=== PATIENT | male | born 1955 | race Caucasian/White ===

== ENCOUNTER 2024-07-19 06:46 | Inpatient (IN) | payer MEDICARE, MEDICAID, SELFPAY ==
[2024-07-19] VITALS (10 sets, daily range): BP systolic 150–188; BP diastolic 57–99; PULSE 69–86; RESP 12–19; TEMP 36.1–36.9; O2SAT 94–98; BMI 33.5
--- NOTE | 2024-07-19 07:00 | EKG_ITS ---
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
--- NOTE | 2024-07-19 07:00 | XR_ITS ---
Examination: AP chest single view TECHNIQUE: AP portable upright chest single view Exam date and time: July 19, 2024 0806 hours Comparison September 29, 2022 INDICATIONS: Chest pain today. FINDINGS: Mild CHF. Mild to moderate enlargement left ventricle Cardiac leads satisfactory position. Prominent vascular congestion with perihilar edema Severe osteopenia IMPRESSION: Mild CHF
--- NOTE | 2024-07-19 07:00 | PD.EDCHEST ---
ED Chest Pain RME/HPI General Chief Complaint: Chest Pain Stated Complaint: CHEST PAIN Time Seen by Provider: 07/19/24 07:00 Arrival date/time: 07/19/24 06:46 RME / HPI RME / HPI narrative: 69 year old male with history of CAD s/p PCI(2012) and CABG(2011), s/p AICD, hypertension, ESRD on HD M/W/F, history of DVT presents to the ED BIBA from home for evaluation fo chest pain beginning at 04:00AM that woke him from sleep. Pain described as sharp pressure in sensation that is located most to the center of chest, rating as moderate. Reportedly took 1 SL Nitro without much improvement. However, was given 1 SL Nitro and 162mg of Aspirin by EMS that provided improvement. Denies associated sweats, nausea, vomiting, cough, shortness of breath. Denies fevers, chills, or abdominal pain. Patient mentioned he has experienced similar chest pain before and last occurred several years ago. 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 Related Data Home Medications ?Medication ?Instructions ?Recorded ?Confirmed allopurinol 300 mg tablet 300 mg PO QDAY 08/03/17 09/29/22 citalopram 20 mg tablet 20 mg PO HS 08/03/17 09/29/22 nitroglycerin 0.4 mg sublingual 0.4 mg buccal PRN PRN Chest Pain 11/25/17 09/29/22 tablet (Nitrostat) furosemide 20 mg tablet 40 mg PO BID 12/24/18 09/29/22 vitamin B complex-vitamin C-folic 1 tab PO DAILY 12/24/18 09/29/22 acid 0.8 mg tablet (Skylar-Edgardo) atorvastatin 80 mg tablet 80 mg PO QPM 08/17/19 09/29/22 hydrocodone 7.5 mg-acetaminophen 1 tab PO BID PRN Pain 08/17/19 09/29/22 325 mg tablet calcium acetate(phosphat bind) 667 667 mg PO TID 09/29/22 09/29/22 mg capsule carvedilol 3.125 mg tablet 3.125 mg PO BID 09/29/22 09/29/22 lisinopril 5 mg tablet 5 mg PO QDAY 09/29/22 09/29/22 Previous Rx's ?Medication ?Instructions ?Recorded clopidogrel 75 mg tablet 75 mg PO QDAY #0 tabs 12/02/17 ondansetron 8 mg disintegrating 8 mg PO Q12H PRN nausea and 10/02/22 tablet vomiting #30 tabs Allergies Allergy/AdvReac Type Severity Reaction Status Date / Time codeine Allergy Severe Rash Verified 09/30/22 19:16 loratadine Allergy Severe SEVERE Verified 09/30/22 19:16 VOMITING naproxen sodium Allergy Severe RASH AND Verified 09/30/22 19:16 SWELLING trazodone Allergy Severe ANAPHALACTIC Verified 09/30/22 19:16 REACTION Review of Systems Review of Systems Narrative Review of Systems: Constitutional: DENIES; Fevers Eyes: DENIES; Loss of vision Head/Ear/Nose: DENIES; Loss of hearing Throat: DENIES; Dysphagia Cardiovascular: SEE HPI +chest pain. DENIES; dyspnea or syncope Respiratory: DENIES; Shortness of breath Gastrointestinal: DENIES; Rectal bleeding or melena. Genitourinary: DENIES; Dysuria (painful or difficult urination) Musculoskeletal: DENIES; Arthralgia (pain in a joint),; Skin: DENIES; Rash Neurological: DENIES; Loss of function or movement Psychiatric: DENIES; recent major life stressor, emotional problem, illicit drug use or abuse Endocrinology: DENIES; Weight change Hematologic/Lymphatic: DENIES; Abnormal bruising Allergic/Immunologic: DENIES; Urticaria (hives) Past Medical History Past Medical History CARDIAC: Positive Cardiac Disorders, Myocardial Infarction, Angina, Coronary Artery Disease, Atherosclerotic Heart Disease, Hypercholesterolemia, Congestive Heart Failure, Edema, Deep Vein Thrombosis, Hypertension and Hypotension RESPIRATORY: Positive Bronchitis, Pneumonia and Pulmonary Embolism GASTROINTESTINAL: Positive Gastrointestinal Disorders and Obesity GENITOURINARY: Positive Genitourinary Disorders, Renal Disease, Kidney Stones and Dialysis MUSCULOSKELETAL: Positive Musculoskeletal Disorders, Arthritis, Gout and Fractures ENDOCRINE: Positive Endocrine Disorders and Diabetes Mellitus Type 2 HEMATOLOGIC: Positive Blood Disorders, Anemia and Clotting Problems PSYCHO/SOCIAL: Positive Recreational Drug Use, Depression and Behavior Problems OTHER HISTORY: Positive Hospitalization and Chicken Pox Family History FAMILY HISTORY: Positive Family Cancer Surgical History SURGICAL: Positive Cardiac Surgery, Open Heart Surgery, Coronary Artery Bypass Graft, Coronary Stent, Cardiac Catheterization, Angiogram, Auto Implanted Cardiovert Defib and Tonsillectomy Social History SMOKING STATUS: Never smoker SECOND HAND EXPOSURE: No SUBSTANCE USE: marijuana OCCUPATION: Denies any alcohol abuse. States that he is an ex-smoker. ED Exam Narrative Physical exam: Physical Exam: General: The vital signs were reviewed. The patient is non-toxic, in no apparent distress and appears healthy with a patent airway, no respiratory distress and has no apparent circulatory problems. Head & Scalp: Normocephalic, atraumatic. Face: Appears normal and is without lesions, deformity. Ears: Left external pinna appears normal. Right external pinna appears normal. Eyes: The sclera is anicteric. No obvious photophobia. The Left and Right Orbit/Lid/Conjunctiva appears normal without swelling, discoloration or injection. Nose: The nose is without deformity, discharge or tenderness; Throat: Appears normal. The mucous membranes are pink and moist without exudates, redness or mass seen. The tongue appears normal. Neck: The neck is supple and no apparent mass or adenopathy. Chest: The chest wall is normal in size and symmetry and has no chest wall tenderness or crepitus. The patient displays normal ventilator effort without retractions, accessory muscle use and has adequate air movement bilaterally with no wheezes and no rales. Cardiovascular: Regular rate and rhythm; No murmurs, rubs, or gallops; Gastrointestinal: The abdomen appears normal. No obvious hernias or mass. The abdomen is soft and benign, non-distended, with no pain, no guarding and no rebound tenderness. Bowel sounds are present and normal sounding. No CVA tenderness. Genitourinary: Back/Spine: Extremities/Musculoskeletal/lymphatic: Left arm has a fistula in place for dialysis access The bilateral upper and lower extremities are warm. There is no evidence of arterial insufficiency. There is no evidence of venous insufficiency/edema. The patient spontaneously moves bilateral upper and lower extremities with no pain and no limitation of movement. There is no apparent, injury or trauma. Skin: The skin is warm, dry and intact. No rashes. No petechia. No purpura. No abnormal bruising. The color is appropriate with no cyanosis. Mental status/Psychiatric: Mental status is appropriate for age. The patient has no apparent delusions, visual hallucinations, no apparent audible hallucinations. The patient has no apparent suicidal thoughts/ideation and no apparent homicidal thoughts/ideation. Neurological: The patient is awake, alert, interactive, cordial, cooperative and is oriented to name and situation. The patient follows commands and answers historical question with no impairment. There is no visual disturbance apparent. The pupils are equal and reactive bilaterally with normal eye movements and no diplopia The bilateral upper and lower extremities have normal strength, normal range of motion and normal functioning. The gait, station and balance were not tested due to sitting in the ambulance bay on the [facility] on initial evaluation Course Course Course Narrative: chest xray ordered to help determine etiology of chest pain. Quality Measures none Orders Category Date Time Status EKG (ED ONLY) *Do not use* NOW Care 07/19/24 07:00 Completed EKG (ED Only) Stat Exams 07/19/24 07:00 Draft XR chest 1V portable Stat Exams 07/19/24 07:00 Completed B-Type Natriuretic Peptide Stat Lab 07/19/24 07:50 Completed CBC Stat Lab 07/19/24 07:50 Completed Comprehensive Metabolic Panel Stat Lab 07/19/24 07:50 Completed Drug Screen,Urine Stat Lab 07/19/24 09:11 Completed Lipase Stat Lab 07/19/24 07:50 Completed Magnesium Stat Lab 07/19/24 07:50 Completed Troponin I Stat Lab 07/19/24 07:50 Completed Troponin I Stat Lab 07/19/24 12:00 Completed Urinalysis Stat Lab 07/19/24 09:11 Completed Urinalysis, C/S if Indicated Stat Lab 07/19/24 09:11 Completed Vital Signs Vital signs: Vital Signs Temperature 98.0 F 07/19/24 07:35 Pulse Rate 85 07/19/24 07:35 Respiratory Rate 16 07/19/24 07:35 Blood Pressure 176/80 H 07/19/24 07:35 Pulse Oximetry (%) 96 07/19/24 07:35 Oxygen Delivery Method Room Air 07/19/24 07:35 Chest Pain MDM Narrative MDM Narrative:: Patient is a 69-year-old diabetic who is dialysis dependent and end-stage renal failure who began having chest pain at 0400 hrs. this morning described as a sharp discomfort. Patient got initial nitroglycerin and then a second 1 which now his chest pain has resolved. He had a previous stent in 2012 and bypass surgery in 2011. States he has been chest pain-free since that time. Dr Kaiser is his oral surgeon. Medical workup for chest pain was initiated at 0655 hrs. White count came back at 5.4 hemoglobin 11.2 platelet count is 104,000 glucose 206. AST ALT within normal is total bilirubin was normal. Initial troponin was 0.115 and a 3-hour interval was elevated at 1.532 consistent with concerns for acute cardiac ischemia. BNP is elevated 819 urine drug screen came back positive for marijuana and opioids. Chest x-ray read by myself reveals mild vascular redistribution consistent with congestive heart failure is no effusion there is no consolidation. There are sternotomy wires in place and large or enlarged cardiac silhouette. Because patient is end-stage renal failure diabetic and now has elevated troponins with a previous history coronary disease will need to be admitted. Spoke with the hospitalist and they will be admitting and asked that I placed a call to Dr. Dunn who has not called back at 1409 hrs. Patient data External records reviewed:: [facility] previous records (09/29/2022 through 10/02/2022) and EMS form Clinical information provided by:: patient and EMS Social determinants that could affect healthcare access:: none Patient has the following chronic illnesses:: CAD s/p PCI(2012) and CABG(2011), s/p AICD, hypertension, ESRD on HD M/W/F, history of DVT How is presenting disease/condition affected by chronic disease/condition?: exacerbated by Evaluation data The following diagnostics were reviewed and interpreted by me:: lab results, radiology exam(s) and EKG tracing(s) (Sinus rhythm, rate 82, no STEMI ) Lab and/or radiology exams considered but not ordered:: None Interpretation Summary: See MDM above Medications / Prescriptions Medications or Prescriptions considered but not ordered:: None Medication administrations:: See MDM patient got aspirin Consultations Consultation(s) initiated? (list below): Yes Diagnosis Chest Pain Differential Diagnosis: pneumothorax, stable angina, atypical chest pain, st elevation myocardial infarction, costochondritis, chest pain and biliary colic Most likely diagnosis given after review of the tests above:: ACS Admission Indicated Admission indicated?: indicated Admission Request Was there a request for admission?: Yes Admission Attestation Admission request attestation: Discussed case with [] from Hospitalist service regarding admission. Discussed patients ED course, exam findings, labs, and radiology results. The Hospitalist [agrees,declines] to accept the patient for admission. Disposition Plan Disposition Plan: Admit Critical Care Time Critical Care Time Critical Care Time: Yes Total Critical Care Time (min.): 45 Attestation: The high probability of sudden, clinically significant deterioration in the patient's condition required the highest level of my preparedness to intervene urgently. The services I provided to this patient were to treat and/or prevent clinically significant deterioration. Services included the following: chart data review, reviewing nursing notes and/or old charts, documentation time, surgery consultant collaboration regarding findings and treatment options, medication orders and management, direct patient care, vital sign assessments and ordering, interpreting and reviewing diagnostic studies and lab tests. Aggregate critical care time includes only time during which I was engaged in work directly related to the patient's care, as described above, whether at bedside or elsewhere in the Emergency Department. It did not include time spent performing other reported procedures or the services of residents, students, nurses or physician assistants. Discharge Plan Plan Patient Disposition: Admit Acute Care w/in Hospital Disposition Comment: Hospitalist admit Dr. Dunn to consult Prescriptions/Referrals Prescriptions/Med Rec: No Action clopidogrel 75 mg Tablet 75 mg PO QDAY Qty: 0 0RF Rx Instructions: Hold until Thursday the . Then continue as prescribed. hydrocodone-acetaminophen 7.5-325 mg Tablet 1 tab PO BID PRN (Reason: Pain) atorvastatin 80 mg Tablet 80 mg PO QPM citalopram 20 mg Tablet 20 mg PO HS allopurinol 300 mg Tablet 300 mg PO QDAY nitroglycerin [Nitrostat] 0.4 mg Tablet, Sublingual 0.4 mg buccal PRN PRN (Reason: Chest Pain) Skylar-Edgardo 0.8 mg Tablet 1 tab PO DAILY furosemide 20 mg Tablet 40 mg PO BID carvedilol 3.125 mg Tablet 3.125 mg PO BID Rx Instructions: must administer with a meal/food lisinopril 5 mg Tablet 5 mg PO QDAY calcium acetate(phosphat bind) 667 mg Capsule 667 mg PO TID ondansetron 8 mg tablet,disintegrating 8 mg PO Q12H PRN (Reason: nausea and vomiting) Qty: 30 0RF Referrals: No Primary/Family,Physician [Primary Care Provider] - In 1 week Problem List Clinical Impression: Acute coronary syndrome, Diabetes, End stage renal failure on dialysis Patient/Caregiver Discharge Instructions Print Language: Sinhala Stand Alone Forms: Ly[facility] Award Info., Patient Portal Info Letter
[2024-07-19 08:17] LABS: Basophils % (Auto) 1 % (0-2.5); Eosinophils # (Auto) 0.1 Thou/mm3 (0.0-0.5); Eosinophils % (Auto) 2 % (0-10); Hematocrit 33.9 % (41.0-53.0); Hemoglobin 11.2 g/dL (13.5-16.0); Immature Granulocytes % (Auto) 0 % (0-0); Immature Granulocytes Auto 0.01 Thou/mm3 (0.00-0.00); Lymphocytes # (Auto) 0.9 Thou/mm3 (1.0-4.8); Lymphocytes % (Auto) 16 % (10-50); Mean Corpuscular Hemoglobin 31.9 pg (25.0-35.0); Mean Corpuscular Volume 97 fL (80-100); Monocytes # (Auto) 0.5 Thou/mm3 (0.0-0.8); Monocytes % (Auto) 9 % (0-12); Neutrophils # (Auto) 3.9 Thou/mm3 (1.8-7.7); Neutrophils % (Auto) 73 % (37-80); Nucleated Red Blood Cell % 0 /100 WBC (0); Platelet Count 104 Thou/mm3 (140-440); RDW Standard Deviation 53.8 fL (35.1-43.9); Red Blood Count 3.51 Miln/mm3 (4.50-5.90); White Blood Count 5.4 Thou/mm3 (3.8-10.6)
[2024-07-19 08:50] LABS: Alanine Aminotransferase 15 U/L (10-49); Albumin, Serum 4.2 gm/dL (3.4-4.8); Albumin/Globulin Ratio 1.4 (1.2-2.2); Alkaline Phosphatase 91 U/L (46-116); Anion Gap 8 (7-16); Aspartate Amino Transferase 25 U/L (0-34); B-Type Natriuretic Peptide 819 pg/mL (0-100); BUN/Creatinine Ratio 5 Ratio (12-20); Bilirubin,Total 0.6 mg/dL (0.3-1.2); Blood Urea Nitrogen 39 mg/dL (9-23); Calcium 10.1 mg/dL (8.3-10.6); Calcium (Corrected) 10.1 mg/dL (8.5-10.1); Carbon Dioxide 29.5 mMol/L (20.0-31.0); Chloride 103 mMol/L (98-107); Creatinine (Component) 7.2 mg/dL (0.6-1.3); Estimated Creatinine Clearance 12.3 mL/min (>60); Globulin 2.9 gm/dL (2.3-3.5); Glucose 206 mg/dL (74-106); Lipase 40 U/L (12-53); Magnesium 1.9 mg/dL (1.6-2.6); Osmolality,Calculated 294 (275-295); Potassium 4.9 mMol/L (3.4-5.1); Sodium 140 mMol/L (136-145); Total Protein 7.1 gm/dL (5.7-8.2); eGFR 8 See Note
[2024-07-19 08:53] LABS: Troponin I 0.115 ng/mL (0.0-0.045)
[2024-07-19 12:10] LABS: Collection Type, Urine Clean Catch; Squamous Epithelial Cell,Urine 0 /hpf (0-5)
[2024-07-19 12:17] LABS: Bilirubin,Urine Negative (Negative); Blood,Urine Negative (Negative); Clarity,Urine Clear (Clear/Hazy); Color,Urine Lt-Yellow (Lt Yel-Yel); Culture Indicated,Urine Not Indicated; Glucose, Urine 3+ (Negative); Ketones,Urine Negative (Negative); Leukocyte Esterase,Urine Negative (Negative); Nitrite,Urine Negative (Negative); Protein,Urine 2+ (Neg - Trace); RBC,Urine 1 /hpf (0-3); Urobilinogen,Urine Negative mg/dL (0.0-1.0); WBC,Urine < 1 /hpf (0-5)
[2024-07-19 12:30] LABS: Amphetamine/Methamp Scrn,U Negative (Negative); Barbiturate Screen,Urine Negative (Negative); Benzodiazepines Screen,Urine Negative (Negative); Benzoylecgonine Screen, Ur Negative (Negative); Fentanyl Screen,Urine Negative (Negative); Opiate Screen,Urine Positive (Negative); THC Screen,Urine Positive (Negative)
[2024-07-19 12:31] LABS: Troponin I 1.532 ng/mL (0.0-0.045)
--- NOTE | 2024-07-19 14:45 | PD.RESHP ---
Documentation for date of: 07/19/24 [facility] History of Present Illness Chief complaint: Chest pain History of present illness: A 69-year-old male with significant past medical history of hypertension, diabetes mellitus, ESRD on HD [M/W/F] since 2019, CAD s/p CABG [2011], s/p PCI [2013], AICD, history of DVT with pulmonary embolism on Eliquis, depression presented to the hospital with chief complaints of chest pain since 6 hours. Patient was apparently normal till this morning, patient had severe chest pain at 4 AM that made him awake from the sleep. Chest pain was located mainly on the left side radiating to the back associated with cold clammy sweats, denies associated shortness of breath, palpitations, radiation to the arm or jaw. Patient took a dose of sublingual nitrate at home despite of which the pain did not subside, took his routine daily medications and later called EMS. Patient received 1 more dose of sublingual nitrate and aspirin 162 following which the pain subsided. By the time the hospitalist team saw the patient, he is free of chest pain. Patient reported that he did not have any similar complaints in the past and no history of chest pain with routine daily activities. Patient is able to take care of himself around the house but cannot walk for long distances due to pain in his legs. Patient is following up with turf keeper Dr. Matthews in [place], last appointment was 3 months ago and next appointment pending in August As the patient have typical chest pain with uptrending troponin levels, patient was admitted and cardiology was consulted for further management ED course: -Vitals at the time of admission are blood pressure 176/80 mmHg, pulse rate 85 bpm, respiratory rate 16/min, temperature 98 ?F, SpO2 96% with room air -Labs showed WBC 5.4, Hb 11.2, platelets 104, sodium 140, potassium 4.9, BUN 39, creatinine 7.2, glucose 206, troponin 1.5, BNP 819 -Urine analysis showed 2+ proteinuria, 3+ glucosuria. Urine toxicology tested positive for opiates and marijuana -Chest x-ray showed enlarged cardiac contour with mild bilateral vascular congestion -EKG normal sinus rhythm with no ST-T wave changes Past medical history: Diabetes mellitus, hypertension, ESRD, CAD, DVT with pulmonary embolism, depression Past surgical history: CABG, PCI, AICD, left AV fistula for hemodialysis, Tonsillectomy Social history: Smoked cigarettes for 20 pack years and quit in 2012, quit alcohol in 2012, continues to smoke marijuana approximately 4 times in a week, denies any other illicit drug abuse, lives alone Allergies: Codeine, trazodone, Aleve Medication history: Eliquis, Plavix, carvedilol, allopurinol, hydrocodone, lisinopril, metoclopramide, Lasix, glipizide, pantoprazole, gabapentin, atorvastatin Review of Systems Review of Systems Narrative Review of Systems: Constitutional: No Weight Change, No Fever, No Chills, No Night Sweats, No Fatigue, No Malaise ENT/Mouth: No Hearing Changes, No Ear Pain, No Nasal Congestion, No Sinus Pain, No Hoarseness, No sore throat, No Rhinorrhea, No Swallowing Difficulty Eyes: No Eye Pain, No Swelling, No Redness, No Foreign Body, No Discharge, No Vision Changes Cardiovascular: No Chest Pain, No SOB, No PND, No Dyspnea on Exertion, No Orthopnea, No Edema, No Palpitations Respiratory: No Cough, No Sputum, No Wheezing, No Dyspnea Gastrointestinal: No Nausea, No Vomiting, No Diarrhea, No Constipation, No Pain, No Heartburn, No Anorexia, No Dysphagia, No Hematochezia, No Melena, No Flatulence, No Jaundice Genitourinary: No Dysuria, No Urinary Frequency, No Hematuria, No Urinary Incontinence, No Urgency, No Flank Pain, No Urinary Flow Changes, No Hesitancy Musculoskeletal: No Arthralgias, No Myalgias, No Joint Swelling, No Joint Stiffness, No Back Pain, No Neck Pain, No Injury History Skin: No Skin Lesions, No Pruritis Neuro: No Weakness, No Numbness, No Paresthesias, No Loss of Consciousness, No Syncope, No Dizziness, No Headache, No Coordination Changes, No Recent Falls Past Medical History Past Medical History CARDIAC: Positive Cardiac Disorders, Myocardial Infarction, Angina, Coronary Artery Disease, Atherosclerotic Heart Disease, Hypercholesterolemia, Congestive Heart Failure, Edema, Deep Vein Thrombosis, Hypertension and Hypotension RESPIRATORY: Positive Bronchitis, Pneumonia and Pulmonary Embolism GASTROINTESTINAL: Positive Gastrointestinal Disorders and Obesity GENITOURINARY: Positive Genitourinary Disorders, Renal Disease, Kidney Stones and Dialysis MUSCULOSKELETAL: Positive Musculoskeletal Disorders, Arthritis, Gout and Fractures ENDOCRINE: Positive Endocrine Disorders and Diabetes Mellitus Type 2 HEMATOLOGIC: Positive Blood Disorders, Anemia and Clotting Problems PSYCHO/SOCIAL: Positive Recreational Drug Use, Depression and Behavior Problems OTHER HISTORY: Positive Hospitalization and Chicken Pox Family History FAMILY HISTORY: Positive Family Cancer Surgical History SURGICAL: Positive Cardiac Surgery, Open Heart Surgery, Coronary Artery Bypass Graft, Coronary Stent, Cardiac Catheterization, Angiogram, Auto Implanted Cardiovert Defib and Tonsillectomy Social History SMOKING STATUS: Never smoker SECOND HAND EXPOSURE: No SUBSTANCE USE: marijuana OCCUPATION: Denies any alcohol abuse. States that he is an ex-smoker. Exam Vital Signs Temp Pulse Resp BP Pulse Ox O2 Del Method 98.2 F 78 12 155/78 H 95 Room Air 07/19/24 10:05 07/19/24 10:05 07/19/24 10:05 07/19/24 10:05 07/19/24 10:07/19/24 10:05 Narrative Exam General: Awake. Resting comfortably HEENT: Normocephalic, atraumatic, mucous membranes moist. Heart: Regular rate and rhythm, systolic murmur heard at aortic and pulmonary area Lungs: Clear to auscultation with no wheezing or crackles. Abdomen: Soft, nondistended, nontender, positive bowel sounds. ?No guarding or rebound tenderness. Neurologic: Alert and oriented x3, no gross neurological deficit, and patient able to move all 4 extremities. Extremities: AV fistula noted on left arm, continuous murmur noted, no signs of infection Skin: No rash or ecchymoses. Results: Labs 07/20/24 06:55 07/20/24 08:50 Labs: Short CBC 07/19/24 Range/Units 07:50 WBC 5.4 (3.8-10.6) Thou/mm3 Hgb 11.2 L (13.5-16.0) g/dL Hct 33.9 L (41.0-53.0) % Plt Count 104 L (140-440) Thou/mm3 BMP 07/19/24 07:50 Sodium 140 Potassium 4.9 Chloride 103 Carbon Dioxide 29.5 BUN 39 H Creatinine 7.2 H* Glucose 206 H Calcium 10.1 Cardiac Enzymes 07/19/24 07/19/24 Range/Units 07:50 12:00 Troponin I 0.115 H* 1.532 H* D (0.0-0.045) ng/mL Liver Function 07/19/24 Range/Units 07:50 Total Bilirubin 0.6 (0.3-1.2) mg/dL AST 25 (0-34) U/L ALT 15 (10-49) U/L Alkaline Phosphatase 91 (46-116) U/L Albumin 4.2 (3.4-4.8) gm/dL Urine 07/19/24 Range/Units 09:11 Urine Color Lt-Yellow (Lt Yel-Yel) Urine Clarity Clear (Clear/Hazy) Urine pH 8.0 H (5.0-7.0) Ur Specific [place] 1.010 (1.001-1.035) Urine Protein 2+ A (Neg - Trace) Urine Glucose (UA) 3+ A (Negative) Quality Measures Quality Measures none Advance care planning discussed with:: patient Medications Home Medications and Allergies Home Medications ?Medication ?Instructions ?Recorded ?Confirmed ?Type allopurinol 300 mg tablet 300 mg PO QDAY 08/03/17 07/20/24 History citalopram 20 mg tablet 20 mg PO HS 08/03/17 07/20/24 History nitroglycerin 0.4 mg sublingual 0.4 mg buccal PRN PRN Chest Pain 11/25/17 07/20/24 History tablet (Nitrostat) furosemide 20 mg tablet 40 mg PO BID 12/24/18 07/20/24 History vitamin B complex-vitamin C-folic 1 tab PO DAILY 12/24/18 07/20/24 History acid 0.8 mg tablet (Skylar-Edgardo) atorvastatin 80 mg tablet 80 mg PO QPM 08/17/19 07/20/24 History hydrocodone 7.5 mg-acetaminophen 1 tab PO BID PRN Pain 08/17/19 07/20/24 History 325 mg tablet calcium acetate(phosphat bind) 667 667 mg PO TID 09/29/22 09/29/22 History mg capsule carvedilol 3.125 mg tablet 3.125 mg PO BID 09/29/22 07/20/24 History lisinopril 5 mg tablet 5 mg PO QDAY 09/29/22 07/20/24 History albuterol sulfate 90 mcg/actuation 2 puff inhalation .[id number] PRN 07/20/24 07/20/24 History aerosol inhaler shortness of breath or wheezing apixaban 2.5 mg tablet (Eliquis) 2.5 mg PO BID 07/20/24 07/20/24 History gabapentin 300 mg capsule 300 mg PO HS 07/20/24 07/20/24 History glipizide 5 mg tablet 2.5 mg PO DAILY 07/20/24 07/20/24 History metoclopramide HCl 5 mg tablet 5 mg PO BID PRN nausea and vomiting 07/20/24 07/20/24 History pantoprazole 40 mg tablet,delayed 40 mg PO BID 07/20/24 07/20/24 History release Allergies Allergy/AdvReac Type Severity Reaction Status Date / Time codeine Allergy Severe Rash Verified 09/30/22 19:16 loratadine Allergy Severe SEVERE Verified 09/30/22 19:16 VOMITING naproxen sodium Allergy Severe RASH AND Verified 09/30/22 19:16 SWELLING trazodone Allergy Severe ANAPHALACTIC Verified 09/30/22 19:16 REACTION Visit Medications Acetaminophen (Acetaminophen 325 Mg Tablet) 650 mg PO Q6H PRN PRN Reason: Fever >101.5 Stop: 08/18/24 14:35 Ondansetron HCl (Ondansetron Inj 2 Mg/Ml Inj 2 Ml) 4 mg IV Q6H PRN; Protocol PRN Reason: NAUSEA OR VOMITING Stop: 08/18/24 14:35 Pantoprazole Sodium (Pantoprazole 40 Mg Tablet) 40 mg PO QDAY KATHERINE Stop: 08/19/24 08:59 Assessment & Plan Plan A 69-year-old male with significant past medical history of hypertension, diabetes mellitus, ESRD on HD [M/W/F] since 2019, CAD s/p CABG [2011], s/p PCI [2012], AICD, history of DVT with pulmonary embolism on Eliquis, depression presented to the hospital with chief complaints of chest pain since 6 hours. # Typical chest pain # NSTEMI, likely type I # History of CAD s/p CABG, PCI, AICD # History of HFrEF [20 to 25%, 2019] -Patient presented to the hospital with complaints of chest pain on the left side radiating to the back associated with cold clammy sweats -Chest pain resolved with 2 doses of sublingual nitrate and patient is pain-free since then -At baseline, patient is able to do his routine daily activities without any chest pain -Vitals are stable at the time of admission except for mildly elevated blood pressures -On physical examination, noted systolic murmur at aortic and pulmonary area -Troponin at the time of admission is 0.115 > 1.53 > 2.7 -EKG done at the time of admission showed sinus rhythm with no ST and T wave changes -Chest x-ray showed enlarged cardiac contour -Echo done in 2019 showed dilated cardiomyopathy with moderate LVH. ejection fraction is 20-25%. Mild mitral, pulmonic, and tricuspid regurgitation noted. Plan -Total dose of aspirin 324 Mg and 80 Mg of atorvastatin is given -Cardiology is consulted, recommended heparin drip and anticipated procedure 2 days later as patient already took Eliquis today -Started on his home medications including carvedilol, Plavix, atorvastatin and Lasix -Will continue to trend troponin levels # History of diabetes mellitus -Glucose at the time of presentation is 206 -Patient is using glimepiride 2.5 Mg p.o. daily Plan -Started on insulin sliding scale, ACHS -Hypoglycemia protocol in place -A1c is ordered # History of hypertension -Blood pressure at the time of admission is 176/80 mmHg -Patient is using carvedilol 3.125 Mg p.o. twice daily, lisinopril 5 Mg p.o. daily, Lasix 40 Mg p.o. twice daily at home Plan -Low-sodium diet -Started on his home medications -Will continue to monitor blood pressures and titrate medication accordingly -Labetalol as needed if blood pressure greater than 160 # ESRD on HD [M/W/F] -Patient is on hemodialysis since 2019 -Following with Dr. Kaiser, last dialysis session is on 07/18/2024 -AV fistula site looks clean on left upper arm Plan -Nephrology is consulted -Patient is pending dialysis tomorrow -Will avoid nephrotoxic medications and renally dose medications # History of DVT with pulmonary embolism, on Eliquis -Patient is scheduled for cardiac cath 2 days later for which Eliquis is held -Started on heparin drip for chest pain which will take care of anticoagulation -Will resume Eliquis on discharge Hospital Maintenance: Dispo: Telemetry DVT ppx: Heparin GI ppx: Pantoprazole Diet: Low-salt, renal diet IV lines: Peripheral Code status: Full code Patient plan of care was discussed with the attending physician, Dr. Rajput and senior resident Dr. Eleno Acosta, PGY1 Attending Provider Attestation/Addendum I reviewed labs, imaging, EKG, home medications and prior available records. Face to face evaluation was performed by me. I have personally examined the patient and discussed assessment and plan with the IM team. I reviewed the resident note and agree with the plan with exceptions as below. Chest pain at rest History of CAD status post CABG and PCI History of ischemic cardiomyopathy with a EF of 20-25% Non-STEMI ESRD on hemodialysis Continue aspirin and atorvastatin Discussed with cardiology: Given the high risk, recommended starting heparin drip and cardiac catheterization Continue Lasix Consult nephrology for routine hemodialysis
--- NOTE | 2024-07-19 14:53 | PD.RESCONSUL ---
HPI Data of Consult Primary Care Provider: Physician No Primary/Family Consult Narrative History of present illness: Patient is a 69-year-old male with past medical history of ESRD on HD M/W/F (followed by Dr. Kaiser), CAD s/p CABG 2011 and PCI 2012 (followed by Dr. Matthews), HFrEF (33%) s/p AICD, history of DVT/PE on Eliquis, hypertension, type 2 diabetes, chronic low back pain, and depression who presented to the ED on 07/19/2024 with sharp, constant, pressure-like left upper chest pain with radiation straight to the back, starting around 4 am waking him from sleep, lasting 2 hours. This was associated with nausea and diaphoresis. Patient reports never having similar pain in the past. Patient took 1 sublingual nitro at home without relief and called EMS. En route patient received 182 mg aspirin and 1 additional sublingual nitro with relief of the chest pain. Pain has not recurred again while patient has been in the ER. Patient follows up with Environmental Maintenance Worker Dr. Matthews in [place], last visit about 3 months ago and scheduled for follow up echo in August. Patient reports his last ejection fraction is 33%. ED Course: -Initial vitals were BP 176/80, HR 85, RR 16, Temp 98.0, O2 98% on RA -Labs significant for normocytic anemia Hgb 11.2, chronic thrombocytopenia 104k, glucose 206, creatinine 7.2, GFR 8 consistent with ESRD, troponin 0.115 uptrended to 1.532, BNP 819 -UA showed glucose 3+, protein 2+, Utox positive for opiates and marijuana -EKG showed sinus rhythm at a rate of [address] segment changes from prior EKG for reference from 09/2022 -Patient was admitted for ACS rule out and Cardiology on-call was consulted Review of Systems Review of systems otherwise negative except what is mentioned above. cc:: cc: Past Medical History Past Medical History Comments PMH COMMENT: Past Medical History: ESRD on HD M/W/F (followed by Dr. Kaiser), CAD s/p CABG 2011 and PCI 2012 (followed by Dr. Matthews), HFrEF (33%) s/p AICD, history of DVT/PE on Eliquis, hypertension, type 2 diabetes, chronic low back pain, and depression Family History: No known family history of cardiac disease, RI, or stroke. Father from liver cancer, mother of old age . Grandfather of cancer. Surgical History: CABG 2011, PCI with 1 stent 2012, tonsillectomy Social History: Former history of smoking 42-pack years quit in 2011, former heavy alcohol use quit in 2011, current daily marijuana use for sleep aid and back pain. Patient lives alone on his property and is independent with all IADLs. 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 He is able to drive but tries to avoid it as possible. Current Medications: Eliquis 2.5 mg BID, clopidogrel 75 mg qday, furosemide 40 mg BID, carvedilol 3.125 mg BID, lisinopril 5 mg qday, atorvastatin 80 mg qday, glipizide 2.5 mg qday, pantoprazole 40 mg BID, metoclopramide 5 mg BID, allopurinol 300 mg qday, citalopram 20 mg qday, gabapentin 300 mg HS, hydrocodone-acetaminophen 7.5-325 mg BID prn (Source: patient medication bottles at bedside) Allergies: Loratadine - swelling, codeine - rash, naproxen - swelling and rash, trazodone - anaphylaxis Exam Vital Signs Temp Pulse Resp BP Pulse Ox O2 Del Method 98.2 F 78 12 155/78 H 95 Room Air 07/19/24 10:05 07/19/24 10:05 07/19/24 10:05 07/19/24 10:05 07/19/24 10:05 07/19/24 10:05 Narrative Exam Physical Exam General: Awake and in no acute distress. Conversational and non-toxic appearing. HEENT: Normocephalic, atraumatic, mucous membranes moist. Heart: Regular rate and rhythm, grade 2/6 systolic ejection murmur best heard at the right upper sternal border. Lungs: Clear to auscultation with no wheezing or crackles. Abdomen: Soft, nondistended, nontender, positive bowel sounds. ?No guarding or rebound tenderness. Neurologic: Alert and oriented x3, no gross neurological deficit, and patient able to move all 4 extremities. Extremities: No edema. Left arm fistula in place. Skin: No rash or ecchymoses. Results Labs 07/20/24 06:55 07/20/24 08:50 Labs: Short CBC 07/19/24 Range/Units 07:50 WBC 5.4 (3.8-10.6) Thou/mm3 Hgb 11.2 L (13.5-16.0) g/dL Hct 33.9 L (41.0-53.0) % Plt Count 104 L (140-440) Thou/mm3 BMP 07/19/24 07:50 Sodium 140 Potassium 4.9 Chloride 103 Carbon Dioxide 29.5 BUN 39 H Creatinine 7.2 H* Glucose 206 H Calcium 10.1 Cardiac Enzymes 07/19/24 07/19/24 Range/Units 07:50 12:00 Troponin I 0.115 H* 1.532 H* D (0.0-0.045) ng/mL Liver Function 07/19/24 Range/Units 07:50 Total Bilirubin 0.6 (0.3-1.2) mg/dL AST 25 (0-34) U/L ALT 15 (10-49) U/L Alkaline Phosphatase 91 (46-116) U/L Albumin 4.2 (3.4-4.8) gm/dL Urine 07/19/24 Range/Units 09:11 Urine Color Lt-Yellow (Lt Yel-Yel) Urine Clarity Clear (Clear/Hazy) Urine pH 8.0 H (5.0-7.0) Ur Specific [place] 1.010 (1.001-1.035) Urine Protein 2+ A (Neg - Trace) Urine Glucose (UA) 3+ A (Negative) Quality Measures Quality Measures none Advance care planning discussed with:: patient Medications Home Medications and Allergies Home Medications ?Medication ?Instructions ?Recorded ?Confirmed ?Type allopurinol 300 mg tablet 300 mg PO QDAY 08/03/17 07/20/24 History citalopram 20 mg tablet 20 mg PO HS 08/03/17 07/20/24 History nitroglycerin 0.4 mg sublingual 0.4 mg buccal PRN PRN Chest Pain 11/25/17 07/20/24 History tablet (Nitrostat) furosemide 20 mg tablet 40 mg PO BID 12/24/18 07/20/24 History vitamin B complex-vitamin C-folic 1 tab PO DAILY 12/24/18 07/20/24 History acid 0.8 mg tablet (Skylar-Edgardo) atorvastatin 80 mg tablet 80 mg PO QPM 08/17/19 07/20/24 History hydrocodone 7.5 mg-acetaminophen 1 tab PO BID PRN Pain 08/17/19 07/20/24 History 325 mg tablet calcium acetate(phosphat bind) 667 667 mg PO TID 09/29/22 09/29/22 History mg capsule carvedilol 3.125 mg tablet 3.125 mg PO BID 09/29/22 07/20/24 History lisinopril 5 mg tablet 5 mg PO QDAY 09/29/22 07/20/24 History albuterol sulfate 90 mcg/actuation 2 puff inhalation .[id number] PRN 07/20/24 07/20/24 History aerosol inhaler shortness of breath or wheezing apixaban 2.5 mg tablet (Eliquis) 2.5 mg PO BID 07/20/24 07/20/24 History gabapentin 300 mg capsule 300 mg PO HS 07/20/24 07/20/24 History glipizide 5 mg tablet 2.5 mg PO DAILY 07/20/24 07/20/24 History metoclopramide HCl 5 mg tablet 5 mg PO BID PRN nausea and vomiting 07/20/24 07/20/24 History pantoprazole 40 mg tablet,delayed 40 mg PO BID 07/20/24 07/20/24 History release Allergies Allergy/AdvReac Type Severity Reaction Status Date / Time codeine Allergy Severe Rash Verified 09/30/22 19:16 loratadine Allergy Severe SEVERE Verified 09/30/22 19:16 VOMITING naproxen sodium Allergy Severe RASH AND Verified 09/30/22 19:16 SWELLING trazodone Allergy Severe ANAPHALACTIC Verified 09/30/22 19:16 REACTION Visit Medications Acetaminophen (Acetaminophen 325 Mg Tablet) 650 mg PO Q6H PRN PRN Reason: Fever >101.5 Stop: 08/18/24 14:35 Ondansetron HCl (Ondansetron Inj 2 Mg/Ml Inj 2 Ml) 4 mg IV Q6H PRN; Protocol PRN Reason: NAUSEA OR VOMITING Stop: 08/18/24 14:35 Pantoprazole Sodium (Pantoprazole 40 Mg Tablet) 40 mg PO QDAY KATHERINE Stop: 08/19/24 08:59 Assessment & Plan Plan 69-year-old male with past medical history of ESRD on HD M/W/F (followed by Dr. Kaiser), CAD s/p CABG 2011 and PCI 2012 (followed by Dr. Matthews), HFrEF (33%) s/p AICD, history of DVT/PE on Eliquis, hypertension, type 2 diabetes, chronic low back pain, and depression who presented to the ED on 07/19/2024 with sharp, constant, pressure-like left upper chest pain with radiation straight to the back. Patient was found to have elevated troponin which uptrended in ED and was subsequently admitted for ACS management and Cardiology was consulted. #Typical chest pain #NSTEMI, likely type I #History of CAD s/p CABG and PCI #History of HFrEF (33%) s/p AICD Patient presented to the hospital with complaints of sharp, pressure-like left upper chest pain which woke up patient from sleep, radiating to the back associated with diaphoresis and nausea, resolved after 2 doses of sublingual nitrate, and has has no further episodes while in the hospital thus far. Troponin at the time of admission is 0.115 -> 1.532 EKG done at the time of admission showed sinus rhythm with no ST and T wave changes Chest x-ray showed enlarged cardiac contour Last echo on file done in 2019 showed dilated cardiomyopathy with moderate LVH. ejection fraction is 20-25%. Mild mitral, pulmonic, and tricuspid regurgitation noted. Patient reports last EF was 33% according to his most recent echo with his senior internal auditor Dr. Matthews. Patient received loading dose of aspirin totalling 325 mg. -Start heparin drip ACS protocol -Trend troponin -Plan for cardiac cath 07/21 as patient's last dose of Eliquis was this morning -Await echo -Continue aspirin 81 mg qday -Continue Plavix 75 mg qday -Continue atorvastatin 80mg HS -Strict I&O, daily weight, 2g sodium diet #Systolic ejection murmur On examination there is a 2/6 systolic ejection murmur loudest at the right upper sternal border. Likely aortic calcification or stenosis. Patient denies any history of valve disease. -Await echo #History of DVT with pulmonary embolism Patient takes Eliquis 2.5 mg BID, previously was on warfarin but was stopped. Last dose 4 AM. -Hold home Eliquis Rest of conditions to continue management per primary team: #ESRD on HD M/W/F #History of hypertension #History of type 2 diabetes #History of chronic low back pain Patient plan of care was discussed with the attending physician, Dr. Albright. Emeli Elkins, PGY-2 Attending Provider Attestation/Addendum I have personally seen and examined the patient separately on the above date of service and discussed the plan of care with the resident. I reviewed the resident Dr. Raysa Elkins consultation progress note and agree with the resident findings and plan in the consultation note dictated separately to reflect my findings and plan. Chad Albright M.D. Interventional Cardiology
[2024-07-19] MEDS: ASPIRIN EC 81 MG TABEC PO ×2 (16:22)
[2024-07-19] MEDS: ATORVASTATIN CALCIUM 20 MG TABLET 80 MG PO (16:23)
[2024-07-19 16:41] LABS: Partial Thromboplastin Time 27.3 Seconds (22.0-36.0)
[2024-07-19] MEDS: HEPARIN SOD INJ 5000 UNIT/ML VIAL 4000 UNIT IV (17:04)
[2024-07-19] MEDS: Heparin/D5w 25K 250 ML Ivpb 25,000 UNIT/250 ML BAG 10.886 UNIT IV (17:10)
--- NOTE | 2024-07-19 17:32 | PC.NURSE ---
Heparin was Pending for 1 hour before pharmacy verified. Admitting providers aware
[2024-07-19] MEDS: carVEDILOL 3.125 MG TABLET PO (17:35)
--- NOTE | 2024-07-19 17:47 | PD.RESCONSUL ---
HPI Data of Consult Consult date: 07/19/24 Requesting Physician: Scott Rajput MD Admitting Provider: Scott Rajput MD Attending Provider: Scott Rajput MD Primary Care Provider: Physician No Primary/Family Consult Narrative Reason for consult: ESRD History of present illness: Mr. 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 He was reportedly well until this morning when he awoke at 4 AM due to severe chest pain. The pain was primarily located on the left side of his chest, radiating to his back, and was associated with cold, clammy sweats. He denied shortness of breath, palpitations, or radiation to the arm or jaw. Despite taking a dose of sublingual nitrate at home, the pain did not resolve. After taking his usual daily medications, he called EMS. He was administered one more dose of sublingual nitrate and 162 mg of aspirin, after which the pain subsided. By the time the hospitalist team evaluated him, the chest pain had completely resolved. Given the patient's presentation with typical chest pain and an uptrending troponin level, he was admitted for further management. Nephrology team was consulted for continued HD inpatient. ED COURSE: Afebrile, BP 176/80, HR 85, RR 16, satting 96% on room air. WBC 5.4, Hgb 11.2, PLT 104, sodium 140, potassium 4.9, BUN 39, CR 7.2, GLUCOSE 206, troponin 1.5, BNP 89. UA showed protein, 2+, glucosuria of 3+. U-Tox positive for OPIOID and marijuana. CXR showed enlarged cardiac contour with mild bilateral vascular congestion. EKG showed sinus rhythm without acute ST changes. PMHx: DM, HTN, ESRD, CAD, DVT/pulmonary embolism, depression. PSHx: CABG, PCI, AICD, left AV AC fistula, tonsillectomy. MEDS: ELIQUIS, PLAVIX, CARVEDILOL, ALLOPURINOL, HYDROCODONE, LISINOPRIL, METOCLOPRAMIDE, LASIX, PANTOPRAZOLE, GABAPENTIN, ATORVASTATIN. ALLERGIES: CODEINE, TRAZODONE and ALEVE. FHx: Noncontributory. SH: 20-year pack history since 2011, quit alcohol in 2012. Continued marijuana use. Denied illicit drug use. cc:: cc: Scott Rajput MD Review of Systems Review of Systems Narrative Review of Systems: GENERAL: Denies fevers/chills or diaphoresis. HEENT: Denies headache or visual/hearing changes. Denies nasal discharge. NEURO: Denies unusual weakness or difficulty speaking. CARDIO: Reports chest pain, but 6 of her admission, currently asymptomatic. PULM: Denies SOB, coughing, or wheezing. GI: Denies abdominal pain, N/V/C/D/reflux/gas, bright red blood per rectum or melena. Reports having BMs. URO: Denies burning/itching/pain/urinary changes. MSK/EXT/SKIN: Denies joint/skeletal/muscle pain, issues/changes in upper or lower extremities, itchiness, or superficial pain. PSYCH: Cooperative, pleasant mood & affect. The rest of the review of systems is otherwise negative. Exam Vital Signs Temp Pulse Resp BP Pulse Ox O2 Del Method 98.5 F 78 18 150/57 H 94 L Room Air 07/19/24 16:10 07/19/24 17:35 07/19/24 16:10 07/19/24 17:35 07/19/24 16:10 07/19/24 16:10 Narrative Exam GENERAL [] HEENT NCAT.?JAELYN. Oral mucosa is moist. Patent Nares NECK Supple, nontender, no thyromegaly, no meningismus, no JVD, no step offs CHEST RRR, grade 2 soft murmur noted on exam. CTAB, no w/r/r. Symmetrical chest rise. No intercostal subcostal retraction Atraumatic, nontender, no crepitus, symmetrical expansion. ABDOMEN Soft, flat, nontender. No guarding/rebound tenderness/masses. Bowel sounds presents EXTREMITIES No edema/cyanosis.? SKIN Warm and dry, no jaundice/rashes. AV fistula of the left arm noted and intact. NEUROMUSCULAR No lumbar or midline, no CVA, no paraspinal muscle spasm or tenderness. Moves all 4 extremities well, with full ROM and good CSM. CONTEH x4, CN II-XII grossly intact. No focal neurologic deficits. PSYCHIATRY Normal mood and affect, cooperative, no SI or HI or hallucinations. Results Labs 07/19/24 07:50 07/19/24 07:50 Labs: Short CBC 07/19/24 Range/Units 07:50 WBC 5.4 (3.8-10.6) Thou/mm3 Hgb 11.2 L (13.5-16.0) g/dL Hct 33.9 L (41.0-53.0) % Plt Count 104 L (140-440) Thou/mm3 BMP 07/19/24 07:50 Sodium 140 Potassium 4.9 Chloride 103 Carbon Dioxide 29.5 BUN 39 H Creatinine 7.2 H* Glucose 206 H Calcium 10.1 Cardiac Enzymes 07/19/24 07/19/24 07/19/24 Range/Units 07:50 12:00 16:16 Troponin I 0.115 H* 1.532 H* D 2.700 H* D (0.0-0.045) ng/mL Liver Function 07/19/24 Range/Units 07:50 Total Bilirubin 0.6 (0.3-1.2) mg/dL AST 25 (0-34) U/L ALT 15 (10-49) U/L Alkaline Phosphatase 91 (46-116) U/L Albumin 4.2 (3.4-4.8) gm/dL Urine 07/19/24 Range/Units 09:11 Urine Color Lt-Yellow (Lt Yel-Yel) Urine Clarity Clear (Clear/Hazy) Urine pH 8.0 H (5.0-7.0) Ur Specific [place] 1.010 (1.001-1.035) Urine Protein 2+ A (Neg - Trace) Urine Glucose (UA) 3+ A (Negative) Quality Measures Quality Measures none Advance care planning discussed with:: patient Medications Home Medications and Allergies Home Medications ?Medication ?Instructions ?Recorded ?Confirmed ?Type allopurinol 300 mg tablet 300 mg PO QDAY 08/03/17 07/20/24 History citalopram 20 mg tablet 20 mg PO HS 08/03/17 07/20/24 History nitroglycerin 0.4 mg sublingual 0.4 mg buccal PRN PRN Chest Pain 11/25/17 07/20/24 History tablet (Nitrostat) furosemide 20 mg tablet 40 mg PO BID 12/24/18 07/20/24 History vitamin B complex-vitamin C-folic 1 tab PO DAILY 12/24/18 07/20/24 History acid 0.8 mg tablet (Skylar-Edgardo) atorvastatin 80 mg tablet 80 mg PO QPM 08/17/19 07/20/24 History hydrocodone 7.5 mg-acetaminophen 1 tab PO BID PRN Pain 08/17/19 07/20/24 History 325 mg tablet calcium acetate(phosphat bind) 667 667 mg PO TID 09/29/22 09/29/22 History mg capsule carvedilol 3.125 mg tablet 3.125 mg PO BID 09/29/22 07/20/24 History lisinopril 5 mg tablet 5 mg PO QDAY 09/29/22 07/20/24 History albuterol sulfate 90 mcg/actuation 2 puff inhalation .[id number] PRN 07/20/24 07/20/24 History aerosol inhaler shortness of breath or wheezing apixaban 2.5 mg tablet (Eliquis) 2.5 mg PO BID 07/20/24 07/20/24 History gabapentin 300 mg capsule 300 mg PO HS 07/20/24 07/20/24 History glipizide 5 mg tablet 2.5 mg PO DAILY 07/20/24 07/20/24 History metoclopramide HCl 5 mg tablet 5 mg PO BID PRN nausea and vomiting 07/20/24 07/20/24 History pantoprazole 40 mg tablet,delayed 40 mg PO BID 07/20/24 07/20/24 History release Allergies Allergy/AdvReac Type Severity Reaction Status Date / Time codeine Allergy Severe Rash Verified 09/30/22 19:16 loratadine Allergy Severe SEVERE Verified 09/30/22 19:16 VOMITING naproxen sodium Allergy Severe RASH AND Verified 09/30/22 19:16 SWELLING trazodone Allergy Severe ANAPHALACTIC Verified 09/30/22 19:16 REACTION Visit Medications Acetaminophen (Acetaminophen 325 Mg Tablet) 650 mg PO Q6H PRN PRN Reason: Fever >101.5 Stop: 08/18/24 14:35 Hydrocodone Bitart/Acetaminophen (Hydrocodone/Apap 7.5/325 Tablet) 1 tab PO Q8HR PRN PRN Reason: Pain 7-10 Stop: 07/24/24 17:32 Atorvastatin Calcium (Atorvastatin Calcium 20 Mg Tablet) 80 mg PO HS [facility] Stop: 08/19/24 20:59 Carvedilol (Carvedilol 3.125 Mg Tablet) 3.125 mg PO BIDWM [facility] Stop: 08/19/24 07:59 Clopidogrel Bisulfate (Clopidogrel Bisulfate 75 Mg Tablet) 75 mg PO QDAY [facility] Stop: 08/19/24 08:59 Dextrose (Dextrose 50%-Water Inj 50 Ml Syringe) 25 ml IV Q15MIN PRN PRN Reason: BG 50-70 responsive npo pt Stop: 08/18/24 17:23 Dextrose (Dextrose 50%-Water Inj 50 Ml Syringe) 50 ml IV Q15MIN PRN PRN Reason: BG <50 OR BG <70 & pt unresponsive Stop: 08/18/24 17:23 Escitalopram Oxalate (Escitalopram Oxalate 10 Mg Tablet) 20 mg PO QDAY [facility] Stop: 08/19/24 08:59 Furosemide (Furosemide 40 Mg Tablet) 40 mg PO BIDD [facility] Stop: 08/18/24 17:59 Glucagon (Glucagon Inj 1 Mg Vial) 1 mg IM Q15MIN PRN PRN Reason: BG <70, and no IV access Heparin Sodium/Dextrose (Heparin In D5w Ivpb) 25,000 unit in 250 mls @ 10.886 mls/hr IV .[id number] [facility]; Protocol Stop: 08/02/24 15:59 Last Admin: 07/19/24 17:10 Dose: 10 units/kg/hr, 10.886 mls/hr Insulin Human Lispro (Insulin Lispro (Admelog) 1 Unit/0.01 Ml Unit) 0 unit SC ACHS [facility]; Protocol Stop: 08/18/24 20:59 Labetalol HCl (Labetalol Inj 5 Mg/Ml Vial 20 Ml) 10 mg IVP Q8HR PRN PRN Reason: SBP > 160 Stop: 08/18/24 17:44 Pantoprazole Sodium (Pantoprazole 40 Mg Tablet) 40 mg PO QDAY [facility] Stop: 08/19/24 08:59 Discontinued Medications Aspirin (Aspirin Ec 81 Mg Tabec) 81 mg PO X1 ONE Stop: 07/19/24 15:11 Last Admin: 07/19/24 16:22 Dose: 81 mg Aspirin (Aspirin Ec 81 Mg Tabec) 81 mg PO X1 ONE Stop: 07/19/24 15:12 Last Admin: 07/19/24 16:22 Dose: 81 mg Atorvastatin Calcium (Atorvastatin Calcium 20 Mg Tablet) 80 mg PO X1 ONE Stop: 07/19/24 15:13 Last Admin: 07/19/24 16:23 Dose: 80 mg Carvedilol (Carvedilol 3.125 Mg Tablet) 3.125 mg PO X1 ONE Stop: 07/19/24 17:27 Last Admin: 07/19/24 17:35 Dose: 3.125 mg Heparin Sodium (Porcine) (Heparin Sod Inj 5000 Unit/Ml Vial) 4,000 unit IV X1 ONE; Protocol Stop: 07/19/24 15:47 Last Admin: 07/19/24 17:04 Dose: 4,000 unit Ondansetron HCl (Ondansetron Inj 2 Mg/Ml Inj 2 Ml) 4 mg IV Q6H PRN; Protocol PRN Reason: NAUSEA OR VOMITING Stop: 08/18/24 14:35 Assessment & Plan Plan A 69-year-old male with a significant PMH of HTN, DM, ESRD on HD (M/W/F) since 2019, CAD s/p CABG (2011), s/p PCI (2012), AICD, 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 Plan is to continue with inpatient hemodialysis. Per session to be done Thursday 4/ in the AM. ESRD HD MWF On hemodialysis this 2019. Still able to make small amount of urine. Renal function consistent with ESRD with creatinine and BUN around baseline. No electrolyte abnormalities. No signs of fluid overload on exam. ? Inpatient hemodialysis MWF. ? Renally dose meds, avoid overdiuresis and NEPHROTOXINS ? Daily CMP Typical chest pain NSTEMI, likely type I History of CAD s/p CABG, PCI, AICD History of HFrEF [20 to 25%, 2019] History of diabetes mellitus History of hypertension History of DVT with pulmonary embolism, on Eliquis Managed per primary team. Appreciate the opportunity to participate in the care of this patient. Patient case was discussed with attending, Dr. Kaiser. Salty Vallejo DO PGYI Attending Provider Attestation/Addendum Patient seen and examined with resident physician Dr. Pond. Note reviewed, agree with findings and recommendations. Spoke to at bedside. Yossi is one of my dialysis patients presenting with chest pain. Mild elevation in troponins noted. Cardiology was consulted. Next dialysis scheduled for tomorrow. Thank you Scott for allowing me to participate in the care of Mr. Higginbotham
[2024-07-19] MEDS: Furosemide 40 MG TABLET PO (17:55)
[2024-07-19] MEDS: HYDROcodone/APAP 7.5/325 TABLET 1 TAB PO (20:56)
[2024-07-19] MEDS: INSULIN LISPRO (AdmeLOG) 1 UNIT/0.01 ML UNIT SC (20:56)
[2024-07-19 23:48] LABS: Partial Thromboplastin Time 36.5 Seconds (22.0-36.0)
--- NOTE | 2024-07-19 23:59 | PD.ADDCONS ---
Addendum Consultation Addendum Date of report being addended: 07/19/24 Narrative: Consultation report for Mr. Anahy Sy on 07/19/2024 A 69-year-old male with a past medical history of CAD status post CABG x 3 in 2011, unknown grafts, status post PCI of one of the grafts in 2012, severe systolic congestive heart failure with an EF of less than 35% status post single-chamber AICD placement in 2021, possible ischemic cardiomyopathy, previously followed by Dr. Matthews in [place], history of recurrent DVT as well as PE on Eliquis, previously on warfarin, ESRD on HD, type 2 diabetes mellitus, essential hypertension, hyperlipidemia obesity, chronic smoker with more than [id number] smoking history quit in 2011, substance abuse including marijuana abuse, history of thrombocytopenia questionable ITP, chronic anemia, chronic low back pain, depression, family history of cancer presented to the emergency department for further evaluation of chest pain the chest pressure that woke up from sleep this morning around 4 AM. Patient apparently went to sleep normally and woke up this morning around 4 AM as he started to worsening left-sided chest pain he describes his pain as sharp as well as pressure-like pain that was radiating to the back and the he could not go back to sleep the chest pain or pressure was associated with nausea and diaphoresis but no vomiting and no radiation to the jaw or the arm. The episode lasted less than 2 hours until he reached the emergency department. Patient denies any kind of dizziness syncope or fall. Denies any kind of palpitations or orthopnea or PND had any recent leg swelling. Patient states that he does go to his dialysis regularly and takes all his medications as prescribed. He does follow-up with his sock examiner Dr. Matthews in [place] and last visit was around 3 months ago. He was told his ejection fraction was around 33% previously and had an ICD placed a few years ago and based on the chest x-ray it appears to be in 2021. Patient states that he did have three-vessel bypass done at [facility] by Dr. PHELPS and a year later one of the graft closed and apparently had a stent placed to the same. His ejection fraction has been slowly decreasing since then and required an ICD. He has been on dialysis for the last 4 years and initially for 3 months he was on the dialysis catheter and then eventually he was switched to a left arm fistula which she has been using since then. Denies any recent cardiac cath in the last 1 to 2 years but apparently had a cardiac cath a few years ago by Dr. Matthews but does not remember any further details. He also says that he had procedures done to his leg also with Dr. Matthews at his office. Significant smoker and quit in 2011 after the CABG and still continues to use marijuana daily. In the emergency department vitals were stable except that the blood pressure was slightly elevated. Labs showed hemoglobin of 1.2 and platelets of 104 and WBC of 5.4 and potassium 4.9. Initial troponin was 0.115 and repeat was 1.532. LFTs normal. UA showed proteinuria and glucosuria. Chest x-ray without any acute pathology. EKG showed normal sinus rhythm with IVCD, LVH with strain pattern with minimal ST depressions in the lateral leads. Currently consulted for further evaluation of the chest pain/pressure as well as elevated troponins. Assessment and plan: 1. NSTEMI-mostly type I> type II-rule out acute coronary syndrome 2. CAD s/p CABG x 3 in 2011 s/p PCI to one of the wraps in 2012 3. Ischemic cardiomyopathy with severe systolic congestive heart failure with EF less than 35% 4. S/p single-chamber AICD placement in 2021 5. ESRD on HD 6. History of DVT on Eliquis-previously on warfarin 7. Uncontrolled type 2 diabetes mellitus 8. Uncontrolled hypertension 9. Hyperlipidemia 10. obesity, chronic smoker with more than [id number] smoking history quit in 2011, substance abuse including marijuana abuse, history of thrombocytopenia questionable ITP, chronic anemia, chronic low back pain, depression, family history of cancer. Patient presented with typical chest pain and chest pressure symptoms and woke up early in the morning at 4 AM from the sleep was left-sided associated with diaphoresis nausea and relieved by nitroglycerin. Troponin is also elevated with the initial troponin 0.115 and repeat was 1.54 and continues to uptrend EKG showed nonspecific ST-T changes mostly secondary to LVH with strain pattern but no other acute ST-T changes. Patient is chest pain-free at the present point of time. Patient will need left heart cardiac catheterization with bypass graft angiogram for further cardiac evaluation of the NSTEMI. Continue heparin drip aspirin 325 mg once, aspirin 81 mg once daily and high intensity statin Lipitor 80 mg or Crestor 40 mg once daily. Recommend to hold the Eliquis completely. Patient took his last dose of Eliquis this morning and will need at least 72 hours without the Eliquis prior to the cardiac catheterization as patient will need a femoral left heart cardiac catheterization given his history of bypass grafts and cannot do radial cardiac cath for him. Will continue medical treatment with heparin drip for the next 48 hours and plan to do the cardiac cath on morning or afternoon. Continue to monitor the patient closely on telemetry for any further symptoms. Continue to trend the troponins till it peaks and starts downtrending. Check echocardiogram to evaluate the LV function RV function as well as the diastolic function and also to rule out regional wall motion abnormalities. Patient has significant history of CAD status post CABG in 2011 with 3 bypass grafts as s/p PCI to one of the grafts as per the patient in 2012. Follows up with Dr. Matthews. Please obtain the operative report of the CABG from [facility] in 2011 as well as all the records for the patient from Dr. Matthews office regarding his recent testing and also patient says that he did have some blood work done which includes peripheral vascular disease workup including angiogram reports from his office. Please also obtain details of the single-chamber AICD placed with the patient secondary to his cardiomyopathy and severe systolic congestive heart failure. Patient does not appear to be volume overloaded at the present point of time. Patient is end-stage renal disease on hemodialysis and goes to dialysis regularly. Nephrology Dr. Kaiser following. Further fluid management and keeping the patient euvolemic as per the nephrology team. Strict input output Daily weights and 2 g within diet for now. Recommend aggressive control of the blood pressure as well as the diabetes mellitus. Counseled patient to quit marijuana and patient already quit smoking more than 10 years ago. Management of rest of the medical conditions as per primary team and other consultants. Thank you for the consult and allowing me to participate in the care of the patient. Cardiology will continue to follow. Chad Albright M.D. Interventional Cardiology
[2024-07-20] VITALS (25 sets, daily range): BP systolic 131–175; BP diastolic 45–91; PULSE 59–80; RESP 18–22; TEMP 35.9–36.8; O2SAT 94–98; BMI 33.5
[2024-07-20 00:17] LABS: Troponin I 3.014 ng/mL (0.0-0.045)
[2024-07-20] MEDS: HEPARIN SOD INJ 5000 UNIT/ML VIAL 2000 UNIT IV (00:41)
--- NOTE | 2024-07-20 01:08 | EKG_ITS ---
[facility] Test Date: 2024-07-20 Pat Name: KIRTI PEREZ [facility] Director Of Coding: JOSÉ MIGUEL : 1955 Requested By: Melissa Morales Order Number: [id number] Reading MD: Melissa Morales Measurements Intervals Trion Rate: 74 P: 48 ME: 173 QRS: 24 QRSD: 118 T: 142 QT: 437 QTc: 487 Interpretive Statements SINUS RHYTHM POSSIBLE INFERIOR MYOCARDIAL INFARCTION , PROBABLY OLD MODERATE T-WAVE ABNORMALITY, CONSIDER LATERAL ISCHEMIA Compared to ECG 07/19/2024 07:37:07 Myocardial infarct finding now present Intraventricular conduction delay no longer present T-wave abnormality still present Possible ischemia still present /store/S0/[id number]/ecg/[id number].pdf
--- NOTE | 2024-07-20 03:50 | PC.NURSE ---
[facility] 0350.
[2024-07-20] MEDS: Furosemide 40 MG TABLET PO ×2 (06:13→17:11)
[2024-07-20 07:14] LABS: Basophils # (Auto) 0.1 Thou/mm3 (0.0-0.2); Basophils % (Auto) 1 % (0-2.5); Eosinophils # (Auto) 0.2 Thou/mm3 (0.0-0.5); Eosinophils % (Auto) 3 % (0-10); Hematocrit 32.6 % (41.0-53.0); Hemoglobin 10.9 g/dL (13.5-16.0); Immature Granulocytes % (Auto) 0 % (0-0); Immature Granulocytes Auto 0.01 Thou/mm3 (0.00-0.00); Lymphocytes # (Auto) 1.5 Thou/mm3 (1.0-4.8); Lymphocytes % (Auto) 27 % (10-50); Mean Corpuscular HGB Conc 33.4 g/dl (31.0-37.0); Mean Corpuscular Hemoglobin 32.2 pg (25.0-35.0); Mean Corpuscular Volume 96 fL (80-100); Monocytes # (Auto) 0.6 Thou/mm3 (0.0-0.8); Monocytes % (Auto) 10 % (0-12); Neutrophils # (Auto) 3.3 Thou/mm3 (1.8-7.7); Neutrophils % (Auto) 59 % (37-80); Nucleated Red Blood Cell % 0 /100 WBC (0); Platelet Count 89 Thou/mm3 (140-440); RDW Standard Deviation 54.6 fL (35.1-43.9); Red Blood Count 3.38 Miln/mm3 (4.50-5.90); White Blood Count 5.5 Thou/mm3 (3.8-10.6)
[2024-07-20 07:41] LABS: Glucose Estimated Average 114 mg/dL (80-131); Hemoglobin A1C 5.6 % Hgb (4.8-6.0)
[2024-07-20] MEDS: HEPARIN SOD INJ 5000 UNIT/ML VIAL 2000 UNIT IVP (07:48)
[2024-07-20 09:29] LABS: Albumin, Serum 3.7 gm/dL (3.4-4.8); Anion Gap 8 (7-16); BUN/Creatinine Ratio 5 Ratio (12-20); Blood Urea Nitrogen 33 mg/dL (9-23); Calcium 9.1 mg/dL (8.3-10.6); Calcium (Corrected) 9.3 mg/dL (8.5-10.1); Carbon Dioxide 27.6 mMol/L (20.0-31.0); Cardiac Risk Estimate 3.4 RATIO (4.0-6.7); Chloride 103 mMol/L (98-107); Cholesterol 119 mg/dL (132-200); Creatinine (Component) 6.1 mg/dL (0.6-1.3); Estimated Creatinine Clearance 14.5 mL/min (>60); Glucose 157 mg/dL (74-106); HDL Cholesterol 35 mg/dL (40-60); LDL Cholesterol,Calculated 70 mg/dL (0-130); Magnesium 1.7 mg/dL (1.6-2.6); Osmolality,Calculated 287 (275-295); Phosphorous 3.5 mg/dL (2.4-5.1); Potassium 4.2 mMol/L (3.4-5.1); Sodium 139 mMol/L (136-145); Thyroid Stimulating Hormone 1.21 uIU/mL (0.55-4.78); Triglycerides 72 mg/dL (30-150); eGFR 9 See Note
[2024-07-20 09:33] LABS: Troponin I 2.121 ng/mL (0.0-0.045)
--- NOTE | 2024-07-20 10:33 | PC.SS ---
Patient Yossi Higginbotham is a 69 year old male admitted for Chest pain. SS met with patient while patient was getting dialysis. Patient reports he gets dialysis in [facility] on Thu, Thu, Thursday's at 5:30PM Patient reports he lives alone and reports his surrogate decision maker is life partner, Xochitl Reinoso [phone]. Patient is able to ambulate and does not utilize any source of DME to assist with ambulation. Patient is able to complete all ADL's independently. Patients Neurologist is Dr. Aguilar and PCP is at [facility]. At time of discharge, patient will return home. Xochitl will provide transportation. SS will stand by for further needs. Next of Kin: Life partner, Xochitl Penakvng [phone]. Discharge plan: Home
--- NOTE | 2024-07-20 10:53 | PC.SS ---
SS follow up note; Elevated Troponin, pending cardiac cath with Dr. Albright. Patient will discharge home when medically cleared.
[2024-07-20 11:27] LABS: Troponin I 2.016 ng/mL (0.0-0.045)
[2024-07-20] MEDS: carVEDILOL 3.125 MG TABLET PO ×2 (11:44→17:11)
[2024-07-20] MEDS: ESCITALOPRAM OXALATE 10 MG TABLET 20 MG PO (11:44)
[2024-07-20] MEDS: PANTOPRAZOLE 40 MG TABLET PO (11:44)
[2024-07-20] MEDS: CLOPIDOGREL BISULFATE 75 MG TABLET PO (11:44)
--- NOTE | 2024-07-20 13:59 | ESPR_ITS ---
Documentation for date of: 07/20/24 Subjective Subjective Interval history: Mr. 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 He was reportedly well until this morning when he awoke at 4 AM due to severe chest pain. The pain was primarily located on the left side of his chest, radiating to his back, and was associated with cold, clammy sweats. He denied shortness of breath, palpitations, or radiation to the arm or jaw. Despite taking a dose of sublingual nitrate at home, the pain did not resolve. After taking his usual daily medications, he called EMS. He was administered one more dose of sublingual nitrate and 162 mg of aspirin, after which the pain subsided. By the time the hospitalist team evaluated him, the chest pain had completely resolved. Given the patient's presentation with typical chest pain and an uptrending troponin level, he was admitted for further management. Nephrology team was consulted for continued HD inpatient. ED COURSE: Afebrile, BP 176/80, HR 85, RR 16, satting 96% on room air. WBC 5.4, Hgb 11.2, PLT 104, sodium 140, potassium 4.9, BUN 39, CR 7.2, GLUCOSE 206, troponin 1.5, BNP 89. UA showed protein, 2+, glucosuria of 3+. U-Tox positive for OPIOID and marijuana. CXR showed enlarged cardiac contour with mild bilateral vascular congestion. EKG showed sinus rhythm without acute ST changes. 07/20/2024 No acute overnight events. Will proceed with HD today. Denies fever, chills, headaches, chest pain, sob, cough, GI or urinary symptoms. Patient seen by cardiology. Angiogram scheduled for tomorrow. Exam Vital Signs Temp Pulse Resp BP Pulse Ox O2 Del Method 97.5 F 71 18 162/76 H 96 Room Air 07/20/24 11:23 07/20/24 11:44 07/20/24 11:23 07/20/24 11:44 07/20/24 11:23 07/20/24 08:00 Narrative Exam GENERAL * Normal appearing male, NAD HEENT * NCAT.?JAELYN. Oral mucosa is moist. Patent Nares NECK * Supple, nontender, no thyromegaly, no meningismus, no JVD, no step offs CHEST * RRR, grade 2 soft murmur noted on exam. * CTAB, no w/r/r. Symmetrical chest rise. No intercostal subcostal retraction * Atraumatic, nontender, no crepitus, symmetrical expansion. ABDOMEN * Soft, flat, nontender. No guarding/rebound tenderness/masses. * Bowel sounds presents EXTREMITIES * No edema/cyanosis.? SKIN * Warm and dry, no jaundice/rashes. * AV fistula of the left arm noted and intact. NEUROMUSCULAR * No lumbar or midline, no CVA, no paraspinal muscle spasm or tenderness. * Moves all 4 extremities well, with full ROM and good CSM. * CONTEH x4, CN II-XII grossly intact. * No focal neurologic deficits. PSYCHIATRY * Normal mood and affect, cooperative, no SI or HI or hallucinations. Objective Labs 07/21/24 05:16 07/21/24 05:16 Labs: Laboratory Results - last 24 hr 07/19/24 07/19/24 07/20/24 16:16 23:23 06:55 WBC 5.5 RBC 3.38 L Hgb 10.9 L Hct 32.6 L MCV 96 MCH 32.2 MCHC 33.4 RDW Std Deviation 54.6 H Plt Count 89 L Neut % (Auto) 59 Lymph % (Auto) 27 [place] % (Auto) 10 Eos % (Auto) 3 Baso % (Auto) 1 Neut # (Auto) 3.3 Lymph # (Auto) 1.5 [place] # (Auto) 0.6 Eos # (Auto) 0.2 Baso # (Auto) 0.1 Immature Gran # (Auto) 0.01 H Absolute Nucleated RBC 0.00 Immature Gran % 0 Nucleated RBC % 0 APTT 27.3 36.5 H 43.0 H Sodium Potassium Chloride Carbon Dioxide Anion Gap BUN Creatinine Estim Creat Clear Calc eGFR BUN/Creatinine Ratio Glucose Estimated Ave Glu mg/dL 114 Hemoglobin A1c 5.6 Calculated Osmolality Calcium Corrected Calcium Phosphorus Magnesium Troponin I 2.700 H* D 3.014 H* D Albumin Triglycerides Cholesterol LDL Cholesterol, Calc HDL Cholesterol Cholesterol/HDL Ratio TSH 07/20/24 07/20/24 08:50 10:40 WBC RBC Hgb Hct MCV MCH MCHC RDW Std Deviation Plt Count Neut % (Auto) Lymph % (Auto) [place] % (Auto) Eos % (Auto) Baso % (Auto) Neut # (Auto) Lymph # (Auto) [place] # (Auto) Eos # (Auto) Baso # (Auto) Immature Gran # (Auto) Absolute Nucleated RBC Immature Gran % Nucleated RBC % APTT Sodium 139 Potassium 4.2 D Chloride 103 Carbon Dioxide 27.6 Anion Gap 8 BUN 33 H Creatinine 6.1 H* D Estim Creat Clear Calc 14.5 L eGFR 9 L* BUN/Creatinine Ratio 5 L Glucose [address] Glu mg/dL Hemoglobin A1c Calculated Osmolality 287 Calcium 9.1 Corrected Calcium 9.3 Phosphorus 3.5 Magnesium 1.7 Troponin I 2.121 H* D 2.016 H* Albumin 3.7 D Triglycerides 72 Cholesterol 119 L LDL Cholesterol, Calc 70 HDL Cholesterol 35 L Cholesterol/HDL Ratio 3.4 L TSH 1.21 Quality Measures Quality Measures none Advance care planning discussed with:: patient Assessment & Plan Assessment Current Active Medications: Generic Name Dose Route Start Last Admin Trade Name Freq PRN Reason Stop Dose Admin Acetaminophen 650 mg 07/19/24 14:36 Acetaminophen 325 Mg Tablet PO 08/18/24 14:35 Q6H PRN Fever >101.5 Hydrocodone Bitart/Acetaminophen 1 tab 07/19/24 17:33 07/19/24 20:56 Hydrocodone/Apap 7.5/325 Tablet PO 07/24/24 17:32 1 tab Q8HR PRN Administration Pain 7-10 Atorvastatin Calcium 80 mg 07/20/24 21:00 Atorvastatin Calcium 20 Mg Tablet PO 08/19/24 20:59 HS KATHERINE Carvedilol 3.125 mg 07/20/24 08:00 07/20/24 11:44 Carvedilol 3.125 Mg Tablet PO 08/19/24 07:59 3.125 mg BIDWM KATHERINE Administration Clopidogrel Bisulfate 75 mg 07/20/24 09:00 07/20/24 11:44 Clopidogrel Bisulfate 75 Mg Tablet PO 08/19/24 08:59 75 mg QDAY KATHERINE Administration Dextrose 25 ml 07/19/24 17:24 Dextrose 50%-Water Inj 50 Ml Syringe IV 08/18/24 17:23 Q15MIN PRN BG 50-70 responsive npo pt Dextrose 50 ml 07/19/24 17:24 Dextrose 50%-Water Inj 50 Ml Syringe IV 08/18/24 17:23 Q15MIN PRN BG <50 OR BG <70 & pt unresponsive Escitalopram Oxalate 20 mg 07/20/24 09:00 07/20/24 11:44 Escitalopram Oxalate 10 Mg Tablet PO 08/19/24 08:59 20 mg QDAY KATHERINE Administration Furosemide 40 mg 07/19/24 18:00 07/20/24 06:13 Furosemide 40 Mg Tablet PO 08/18/24 17:59 40 mg BIDD KATHERINE Administration Glucagon 1 mg 07/19/24 17:24 Glucagon Inj 1 Mg Vial IM Q15MIN PRN BG <70, and no IV access Heparin Sodium/Dextrose 25,000 unit in 250 mls @ 10.886 mls/hr 07/19/24 16:00 07/20/24 07:49 Heparin In D5w Ivpb IV 08/02/24 15:59 14 units/kg/hr .[id number] KATHERINE 15.241 mls/hr Titration Protocol 10 UNITS/KG/HR Insulin Human Lispro 0 unit 07/19/24 21:00 07/20/24 11:35 Insulin Lispro (Admelog) 1 Unit/0.01 Ml Unit SC 08/18/24 20:59 Not Given ACHS KATHERINE Protocol Labetalol HCl 10 mg 07/19/24 17:45 Labetalol Inj 5 Mg/Ml Vial 20 Ml IVP 08/18/24 17:44 Q8HR PRN SBP > 160 Pantoprazole Sodium 40 mg 07/20/24 09:00 07/20/24 11:44 Pantoprazole 40 Mg Tablet PO 08/19/24 08:59 40 mg QDAY KATHERINE Administration Plan A 69-year-old male with a significant PMH of HTN, DM, ESRD on HD (M/W/F) since 2019, CAD s/p CABG (2011), s/p PCI (2012), AICD, 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 Plan is to continue with inpatient hemodialysis. Per session to be done Thursday 07/20 in the AM. ESRD HD MWF On hemodialysis this 2019. Still able to make small amount of urine. Renal function consistent with ESRD with creatinine and BUN around baseline. No electrolyte abnormalities. No signs of fluid overload on exam. CR 6.1 today following HD, 1.6L fluids removed. ? Inpatient hemodialysis MWF. ? Renally dose meds, avoid overdiuresis and NEPHROTOXINS ? Daily CMP Typical chest pain NSTEMI, likely type I History of CAD s/p CABG, PCI, AICD History of HFrEF [20 to 25%, 2019] History of diabetes mellitus History of hypertension History of DVT with pulmonary embolism, on Eliquis Managed per primary team. Appreciate the opportunity to participate in the care of this patient. Patient case was discussed with attending, Dr. Kaiser. Salty Vallejo DO PGYI Attending Provider Attestation/Addendum Patient seen and examined with resident physician Dr. Pond. Note reviewed, agree with findings and recommendations. Patient currently seen on dialysis. Tolerating dialysis without any problems. Hemodialysis for 3 hours, 2K, ultrafiltration 1-2 L, Epogen 6000, no heparin ordered. Plan of care discussed with the dialysis nurse. Please see dialysis flowsheet for further details. Cardiac cath scheduled for tomorrow
--- NOTE | 2024-07-20 14:14 | ESPR_ITS ---
<Statement entered by Angel Johansen MD - 07/21/24 09:00> Senior Resident Attestation: I supervised/discussed management plan with graphic design intern physician Dr. Acosta, and was involved in the care of this patient. I personally saw and examined the patient and discussed the assessment and plan with the entire medicine team, including my attending. I agree with the assessment and plan as documented. Patient's care was discussed with attending physician, Dr. Rajput. Angel Johansen MD PGY-2. Documentation for date of: 07/20/24 Subjective Subjective Interval history: Patient is seen and examined at bedside in the dialysis unit No acute overnight events. Patient denies further episodes of chest pain Vitals are stable. On physical examination, there is systolic murmur heard in all areas, getting HD through AV fistula in the left arm and tolerating the dialysis well Labs showed Hb 10.9, platelet 89, BUN 33, creatinine 6.1, troponin down trended to 2.016 Patient will be scheduled for cardiac cath tomorrow, as per Dr. Albright Exam Vital Signs Temp Pulse Resp BP Pulse Ox O2 Del Method 97.5 F 71 18 162/76 H 96 Room Air 07/20/24 11:23 07/20/24 11:44 07/20/24 11:23 07/20/24 11:44 07/20/24 11:23 07/20/24 08:00 Narrative Exam General: Awake. Resting comfortably HEENT: Normocephalic, atraumatic, mucous membranes moist. Heart: Regular rate and rhythm, systolic murmur heard at aortic and pulmonary area Lungs: Clear to auscultation with no wheezing or crackles. Abdomen: Soft, nondistended, nontender, positive bowel sounds. ?No guarding or rebound tenderness. Neurologic: Alert and oriented x3, no gross neurological deficit, and patient able to move all 4 extremities. Extremities: AV fistula noted on left arm, continuous murmur noted, no signs of infection Skin: No rash or ecchymoses. Objective Labs 07/20/24 06:55 07/20/24 08:50 Labs: Laboratory Results - last 24 hr 07/19/24 07/19/24 07/20/24 16:16 23:23 06:55 WBC 5.5 RBC 3.38 L Hgb 10.9 L Hct 32.6 L MCV 96 MCH 32.2 MCHC 33.4 RDW Std Deviation 54.6 H Plt Count 89 L Neut % (Auto) 59 Lymph % (Auto) 27 [place] % (Auto) 10 Eos % (Auto) 3 Baso % (Auto) 1 Neut # (Auto) 3.3 Lymph # (Auto) 1.5 [place] # (Auto) 0.6 Eos # (Auto) 0.2 Baso # (Auto) 0.1 Immature Gran # (Auto) 0.01 H Absolute Nucleated RBC 0.00 Immature Gran % 0 Nucleated RBC % 0 APTT 27.3 36.5 H 43.0 H Sodium Potassium Chloride Carbon Dioxide Anion Gap BUN Creatinine Estim Creat Clear Calc eGFR BUN/Creatinine Ratio Glucose Estimated Ave Glu mg/dL 114 Hemoglobin A1c 5.6 Calculated Osmolality Calcium Corrected Calcium Phosphorus Magnesium Troponin I 2.700 H* D 3.014 H* D Albumin Triglycerides Cholesterol LDL Cholesterol, Calc HDL Cholesterol Cholesterol/HDL Ratio TSH 07/20/24 07/20/24 08:50 10:40 WBC RBC Hgb Hct MCV MCH MCHC RDW Std Deviation Plt Count Neut % (Auto) Lymph % (Auto) [place] % (Auto) Eos % (Auto) Baso % (Auto) Neut # (Auto) Lymph # (Auto) [place] # (Auto) Eos # (Auto) Baso # (Auto) Immature Gran # (Auto) Absolute Nucleated RBC Immature Gran % Nucleated RBC % APTT Sodium 139 Potassium 4.2 D Chloride 103 Carbon Dioxide 27.6 Anion Gap 8 BUN 33 H Creatinine 6.1 H* D Estim Creat Clear Calc 14.5 L eGFR 9 L* BUN/Creatinine Ratio 5 L Glucose [address] Glu mg/dL Hemoglobin A1c Calculated Osmolality 287 Calcium 9.1 Corrected Calcium 9.3 Phosphorus 3.5 Magnesium 1.7 Troponin I 2.121 H* D 2.016 H* Albumin 3.7 D Triglycerides 72 Cholesterol 119 L LDL Cholesterol, Calc 70 HDL Cholesterol 35 L Cholesterol/HDL Ratio 3.4 L TSH 1.21 Quality Measures Quality Measures none Advance care planning discussed with:: patient Assessment & Plan Assessment Current Active Medications: Generic Name Dose Route Start Last Admin Trade Name Freq PRN Reason Stop Dose Admin Acetaminophen 650 mg 07/19/24 14:36 Acetaminophen 325 Mg Tablet PO 08/18/24 14:35 Q6H PRN Fever >101.5 Hydrocodone Bitart/Acetaminophen 1 tab 07/19/24 17:33 07/19/24 20:56 Hydrocodone/Apap 7.5/325 Tablet PO 07/24/24 17:32 1 tab Q8HR PRN Administration Pain 7-10 Atorvastatin Calcium 80 mg 07/20/24 21:00 Atorvastatin Calcium 20 Mg Tablet PO 08/19/24 20:59 HS KATHERINE Carvedilol 3.125 mg 07/20/24 08:00 07/20/24 11:44 Carvedilol 3.125 Mg Tablet PO 08/19/24 07:59 3.125 mg BIDWM KATHERINE Administration Clopidogrel Bisulfate 75 mg 07/20/24 09:00 07/20/24 11:44 Clopidogrel Bisulfate 75 Mg Tablet PO 08/19/24 08:59 75 mg QDAY KATHERINE Administration Dextrose 25 ml 07/19/24 17:24 Dextrose 50%-Water Inj 50 Ml Syringe IV 08/18/24 17:23 Q15MIN PRN BG 50-70 responsive npo pt Dextrose 50 ml 07/19/24 17:24 Dextrose 50%-Water Inj 50 Ml Syringe IV 08/18/24 17:23 Q15MIN PRN BG <50 OR BG <70 & pt unresponsive Escitalopram Oxalate 20 mg 07/20/24 09:00 07/20/24 11:44 Escitalopram Oxalate 10 Mg Tablet PO 08/19/24 08:59 20 mg QDAY KATHERINE Administration Furosemide 40 mg 07/19/24 18:00 07/20/24 06:13 Furosemide 40 Mg Tablet PO 08/18/24 17:59 40 mg BIDD KATHERINE Administration Glucagon 1 mg 07/19/24 17:24 Glucagon Inj 1 Mg Vial IM Q15MIN PRN BG <70, and no IV access Heparin Sodium/Dextrose 25,000 unit in 250 mls @ 10.886 mls/hr 07/19/24 16:00 07/20/24 07:49 Heparin In D5w Ivpb IV 08/02/24 15:59 14 units/kg/hr .[id number] KATHERINE 15.241 mls/hr Titration Protocol 10 UNITS/KG/HR Insulin Human Lispro 0 unit 07/19/24 21:00 07/20/24 11:35 Insulin Lispro (Admelog) 1 Unit/0.01 Ml Unit SC 08/18/24 20:59 Not Given ACHS KATHERINE Protocol Labetalol HCl 10 mg 07/19/24 17:45 Labetalol Inj 5 Mg/Ml Vial 20 Ml IVP 08/18/24 17:44 Q8HR PRN SBP > 160 Pantoprazole Sodium 40 mg 07/20/24 09:00 07/20/24 11:44 Pantoprazole 40 Mg Tablet PO 08/19/24 08:59 40 mg QDAY KATHERINE Administration Plan A 69-year-old male with significant past medical history of hypertension, diabetes mellitus, ESRD on HD [M/W/F] since 2019, CAD s/p CABG [2011], s/p PCI [2012], AICD, history of DVT with pulmonary embolism on Eliquis, depression presented to the hospital with chief complaints of chest pain since 6 hours. # Typical chest pain # NSTEMI, likely type I # History of CAD s/p CABG, PCI, AICD # History of HFrEF [20 to 25%, 2019] -Patient presented to the hospital with complaints of chest pain on the left side radiating to the back associated with cold clammy sweats -Chest pain resolved with 2 doses of sublingual nitrate and patient is pain-free since then -At baseline, patient is able to do his routine daily activities without any chest pain -Vitals are stable at the time of admission except for mildly elevated blood pressures -On physical examination, noted systolic murmur at aortic and pulmonary area -Troponin at the time of admission is 0.115 > 1.53 > 2.7 > 3 > 2.12 > 2.06 -EKG done at the time of admission showed sinus rhythm with no ST and T wave changes -Chest x-ray showed enlarged cardiac contour -Echo done in 2019 showed dilated cardiomyopathy with moderate LVH. ejection fraction is 20-25%. Mild mitral, pulmonic, and tricuspid regurgitation noted. Plan -Total dose of aspirin 324 Mg and 80 Mg of atorvastatin is given -Cardiology is consulted, recommended heparin drip and anticipated procedure tomorrow -Started on his home medications including carvedilol, Plavix, atorvastatin and Lasix # History of diabetes mellitus -Glucose at the time of presentation is 206 -Patient is using glimepiride 2.5 Mg p.o. daily Plan -Started on insulin sliding scale, ACHS -Hypoglycemia protocol in place -A1c is ordered -5.6, recommended patient to talk to his PCP about discontinuation of glimepiride # History of hypertension -Blood pressure at the time of admission is 176/80 mmHg -Patient is using carvedilol 3.125 Mg p.o. twice daily, lisinopril 5 Mg p.o. daily, Lasix 40 Mg p.o. twice daily at home Plan -Low-sodium diet -Started on his home medications -Will continue to monitor blood pressures and titrate medication accordingly -Labetalol as needed if blood pressure greater than 160 # ESRD on HD [M/W/F] -Patient is on hemodialysis since 2019 -Following with Dr. Kaiser, last dialysis session is on 07/18/2024 -AV fistula site looks clean on left upper arm Plan -Nephrology is consulted -Patient received HD on 07/20 -Will avoid nephrotoxic medications and renally dose medications # History of DVT with pulmonary embolism, on Eliquis -Patient is scheduled for cardiac cath 2 days later for which Eliquis is held -Started on heparin drip for chest pain which will take care of anticoagulation -Will resume Eliquis on discharge Hospital Maintenance: Dispo: Telemetry DVT ppx: Heparin GI ppx: Pantoprazole Diet: Low-salt, renal diet IV lines: Peripheral Code status: Full code Patient plan of care was discussed with the attending physician, Dr. Rajput and senior resident Dr. Eleno Acosta, PGY1 Attending Provider Attestation/Addendum I reviewed labs, imaging, EKG, home medications and prior available records. Face to face evaluation was performed by me. I have personally examined the patient and discussed assessment and plan with the IM team. I reviewed the resident note and agree with the plan with exceptions as below. Chest pain at rest History of CAD status post CABG and PCI History of ischemic cardiomyopathy with a EF of 20-25% Non-STEMI ESRD on hemodialysis Continue Plavix and atorvastatin Discussed with cardiology: Given the high risk, recommended starting heparin drip and cardiac catheterization on 07/21. N.p.o. after midnight Continue Lasix Troponin peaked Consult nephrology for routine hemodialysis. He got dialysis on 07/20
[2024-07-20 14:25] LABS: Partial Thromboplastin Time 70.9 Seconds (22.0-36.0)
--- NOTE | 2024-07-20 14:41 | ESPR_ITS ---
Documentation for date of: 07/20/24 Subjective Subjective Interval history: No acute events overnight.?Patient seen and examined at bedside this AM in dialysis room on third floor.?Patient reported feeling tired, as he was unable to sleep much last night due to chronic back pain and the hospital [facility]. He otherwise reported no further acute chest pain episodes, shortness of breath, nausea, diaphoresis, dizziness, headache, or tingling. No further complaints at this time. Labs and vitals were reviewed, 24-hour telemetry reviewed.?BP ranged from 131/65 to 175/85. HR ranged 60-70. Patient remains saturating 94-97% on room air. Troponin peaked at 3.014 around midnight and EKG done around that time did not show any ST-T changes and patient asymptomatic. Downtrended to 2.016 this morning. Hgb 10.9, aPTT 70.9, BUN 33, creatinine 6.1, GFR 9. Total cholesterol 119, triglycerides 72, LDL 70, HDL 35. TSH 1.21. A1c 5.6. Cardiac cath will be scheduled for tomorrow morning, patient is to be NPO after midnight. Review of systems otherwise negative except what is mentioned above. Exam Vital Signs Temp Pulse Resp BP Pulse Ox O2 Del Method 96.7 F L 71 18 162/76 H 94 L Room Air 07/20/24 12:00 07/20/24 12:00 07/20/24 12:00 07/20/24 12:00 07/20/24 12:00 07/20/24 12:00 Narrative Exam Physical Exam General: Awake and in no acute distress. Conversational and non-toxic appearing. HEENT: Normocephalic, atraumatic, mucous membranes moist. Heart: Regular rate and rhythm, grade 2/6 systolic ejection murmur best heard at the right upper sternal border. Lungs: Clear to auscultation with no wheezing or crackles. Abdomen: Soft, nondistended, nontender, positive bowel sounds. ?No guarding or rebound tenderness. Neurologic: Alert and oriented x3, no gross neurological deficit, and patient able to move all 4 extremities. Extremities: No edema. Left arm fistula in place. Skin: No rash or ecchymoses. Objective Labs 07/20/24 06:55 07/20/24 08:50 Labs: Laboratory Results - last 24 hr 07/19/24 07/19/24 07/20/24 16:16 23:23 06:55 WBC 5.5 RBC 3.38 L Hgb 10.9 L Hct 32.6 L MCV 96 MCH 32.2 MCHC 33.4 RDW Std Deviation 54.6 H Plt Count 89 L Neut % (Auto) 59 Lymph % (Auto) 27 [place] % (Auto) 10 Eos % (Auto) 3 Baso % (Auto) 1 Neut # (Auto) 3.3 Lymph # (Auto) 1.5 [place] # (Auto) 0.6 Eos # (Auto) 0.2 Baso # (Auto) 0.1 Immature Gran # (Auto) 0.01 H Absolute Nucleated RBC 0.00 Immature Gran % 0 Nucleated RBC % 0 APTT 27.3 36.5 H 43.0 H Sodium Potassium Chloride Carbon Dioxide Anion Gap BUN Creatinine Estim Creat Clear Calc eGFR BUN/Creatinine Ratio Glucose Estimated Ave Glu mg/dL 114 Hemoglobin A1c 5.6 Calculated Osmolality Calcium Corrected Calcium Phosphorus Magnesium Troponin I 2.700 H* D 3.014 H* D Albumin Triglycerides Cholesterol LDL Cholesterol, Calc HDL Cholesterol Cholesterol/HDL Ratio TSH 07/20/24 07/20/24 08:50 10:40 WBC RBC Hgb Hct MCV MCH MCHC RDW Std Deviation Plt Count Neut % (Auto) Lymph % (Auto) [place] % (Auto) Eos % (Auto) Baso % (Auto) Neut # (Auto) Lymph # (Auto) [place] # (Auto) Eos # (Auto) Baso # (Auto) Immature Gran # (Auto) Absolute Nucleated RBC Immature Gran % Nucleated RBC % APTT Sodium 139 Potassium 4.2 D Chloride 103 Carbon Dioxide 27.6 Anion Gap 8 BUN 33 H Creatinine 6.1 H* D Estim Creat Clear Calc 14.5 L eGFR 9 L* BUN/Creatinine Ratio 5 L Glucose [address] Glu mg/dL Hemoglobin A1c Calculated Osmolality 287 Calcium 9.1 Corrected Calcium 9.3 Phosphorus 3.5 Magnesium 1.7 Troponin I 2.121 H* D 2.016 H* Albumin 3.7 D Triglycerides 72 Cholesterol 119 L LDL Cholesterol, Calc 70 HDL Cholesterol 35 L Cholesterol/HDL Ratio 3.4 L TSH 1.21 Quality Measures Quality Measures none Advance care planning discussed with:: patient Assessment & Plan Assessment Current Active Medications: Generic Name Dose Route Start Last Admin Trade Name Freq PRN Reason Stop Dose Admin Acetaminophen 650 mg 07/19/24 14:36 Acetaminophen 325 Mg Tablet PO 08/18/24 14:35 Q6H PRN Fever >101.5 Hydrocodone Bitart/Acetaminophen 1 tab 07/19/24 17:33 07/19/24 20:56 Hydrocodone/Apap 7.5/325 Tablet PO 07/24/24 17:32 1 tab Q8HR PRN Administration Pain 7-10 Atorvastatin Calcium 80 mg 07/20/24 21:00 Atorvastatin Calcium 20 Mg Tablet PO 08/19/24 20:59 HS KATHERINE Carvedilol 3.125 mg 07/20/24 08:00 07/20/24 11:44 Carvedilol 3.125 Mg Tablet PO 08/19/24 07:59 3.125 mg BIDWM KATHERINE Administration Clopidogrel Bisulfate 75 mg 07/20/24 09:00 07/20/24 11:44 Clopidogrel Bisulfate 75 Mg Tablet PO 08/19/24 08:59 75 mg QDAY KATHERINE Administration Dextrose 25 ml 07/19/24 17:24 Dextrose 50%-Water Inj 50 Ml Syringe IV 08/18/24 17:23 Q15MIN PRN BG 50-70 responsive npo pt Dextrose 50 ml 07/19/24 17:24 Dextrose 50%-Water Inj 50 Ml Syringe IV 08/18/24 17:23 Q15MIN PRN BG <50 OR BG <70 & pt unresponsive Escitalopram Oxalate 20 mg 07/20/24 09:00 07/20/24 11:44 Escitalopram Oxalate 10 Mg Tablet PO 08/19/24 08:59 20 mg QDAY KATHERINE Administration Furosemide 40 mg 07/19/24 18:00 07/20/24 06:13 Furosemide 40 Mg Tablet PO 08/18/24 17:59 40 mg BIDD KATHERINE Administration Glucagon 1 mg 07/19/24 17:24 Glucagon Inj 1 Mg Vial IM Q15MIN PRN BG <70, and no IV access Heparin Sodium/Dextrose 25,000 unit in 250 mls @ 10.886 mls/hr 07/19/24 16:00 07/20/24 07:49 Heparin In D5w Ivpb IV 08/02/24 15:59 14 units/kg/hr .[id number] KATHERINE 15.241 mls/hr Titration Protocol 10 UNITS/KG/HR Insulin Human Lispro 0 unit 07/19/24 21:00 07/20/24 11:35 Insulin Lispro (Admelog) 1 Unit/0.01 Ml Unit SC 08/18/24 20:59 Not Given ACHS [facility] Protocol Labetalol HCl 10 mg 07/19/24 17:45 Labetalol Inj 5 Mg/Ml Vial 20 Ml IVP 08/18/24 17:44 Q8HR PRN SBP > 160 Pantoprazole Sodium 40 mg 07/20/24 09:00 07/20/24 11:44 Pantoprazole 40 Mg Tablet PO 08/19/24 08:59 40 mg QDAY KATHERINE Administration Plan 69-year-old male with past medical history of ESRD on HD /W/ (followed by Dr. Kaiser), CAD s/p triple CABG 2011 and PCI 2012 (followed by Dr. Matthews), HFrEF (33%) s/p AICD, history of DVT/PE on Eliquis, hypertension, type 2 diabetes, chronic low back pain, and depression who presented to the ED on 07/19/2024 with sharp, constant, pressure-like left upper chest pain with radiation straight to the back. Patient was found to have elevated troponin which uptrended in ED and was subsequently admitted for ACS management and Cardiology was consulted. #Typical chest pain #NSTEMI, likely type I #History of CAD s/p triple CABG and PCI x1 Patient presented to the hospital with complaints of sharp, pressure-like left upper chest pain which woke up patient from sleep, radiating to the back associated with diaphoresis and nausea, resolved after 2 doses of sublingual nitrate, and has has no further episodes while in the hospital thus far. Troponin at the time of admission is 0.115 -> 1.532 EKG done at the time of admission showed sinus rhythm with no ST and T wave changes Chest x-ray showed enlarged cardiac contour Last echo on file done in 2019 showed dilated cardiomyopathy with moderate LVH. ejection fraction is 20-25%. Mild mitral, pulmonic, and tricuspid regurgitation noted. Patient reports last EF was 33% according to his most recent echo with his bereavement program coordinator Dr. Matthews. Patient received loading dose of aspirin totalling 325 mg on 07/19. Patient's last dose of Eliquis was 07/19 morning. -Continue heparin drip ACS protocol -Troponin has peaked, no need to continue trend -Cardiac cath tomorrow, 07/21 -Cardiology team will stop heparin prior to patient going into cath -Echo taken pending read -Continue aspirin 81 mg qday -Continue Plavix 75 mg qday -Continue atorvastatin 80 mg HS #History of HFrEF (33%) s/p AICD #History of hypertension Patient reports last EF was 33% according to his bereavement program coordinator Dr. Matthews. -Continue home Lasix 40 mg BID -Continue home carvedilol 3.125 mg BID -Echo taken pending read -Strict I&O -Daily weight -2g sodium diet #Systolic ejection murmur On examination there is a 2/6 systolic ejection murmur loudest at the right upper sternal border. Likely aortic calcification or stenosis. Patient denies any history of valve disease. -Echo taken pending read #History of DVT with pulmonary embolism Patient takes Eliquis 2.5 mg BID, previously was on warfarin but was stopped. Last dose 4 AM. -Hold home Eliquis Rest of conditions to continue management per primary team: #ESRD on HD M/W/F #History of type 2 diabetes #History of chronic low back pain Patient plan of care was discussed with the attending physician, Dr. Albright. Emeli Elkins, PGY-2 Attending Provider Attestation/Addendum I have personally seen and examined the patient separately on the above date of service and discussed the plan of care with the resident. I reviewed the resident Dr. Emeli Elkins consultation progress note and agree with the resident findings and plan in the note above and have also edited the documentation to reflect my findings and plan. Patient denies any chest pain or chest pressure since yesterday morning. Patient doing well and is hemodynamically stable. Troponins peaked around 3 and are now downtrending. Patient continues to be on heparin drip along with aspirin and Plavix. Eliquis on hold and by tomorrow morning it will be more than 48 hours and will plan to do the left heart cardiac catheterization with possible PCI given his NSTEMI. Echocardiogram was completed on 07/20/2024 which showed Dilated cardiomyopathy with severe LV dysfunction LVEF 30-35%. RV appears normal with RVSP 25 mmHg. LA is mildly dilated. Aortic valve sclerosis with mild stenosis. Mild mitral regurgitation. Mild tricuspid regurgitation. No change in the systolic function from before and still shows EF of 30 to 35% with global hypokinesis. Patient explained the risk benefits and alternatives of performing a left heart cardiac catheterization with possible PCI including the risk of bleeding, heart attack, stroke and in detail. Patient agreeable and provided consent for the same. Will keep the patient n.p.o. after midnight. Chad Albright M.D. Interventional Cardiology
[2024-07-20] MEDS: Heparin/D5w 25K 250 ML Ivpb 25,000 UNIT/250 ML BAG 15.241 UNIT IV (15:55)
[2024-07-20] MEDS: ATORVASTATIN CALCIUM 20 MG TABLET 80 MG PO (20:39)
[2024-07-20 21:58] LABS: Partial Thromboplastin Time 65.8 Seconds (22.0-36.0)
[2024-07-21] VITALS (30 sets, daily range): BP systolic 121–190; BP diastolic 54–96; PULSE 67–88; RESP 13–20; TEMP 35.9–36.6; O2SAT 93–99
[2024-07-21] MEDS: HYDROcodone/APAP 7.5/325 TABLET 1 TAB PO ×2 (00:26→11:42)
[2024-07-21] MEDS: Furosemide 40 MG TABLET PO ×2 (05:08→17:06)
[2024-07-21 05:50] LABS: Basophils # (Auto) 0.1 Thou/mm3 (0.0-0.2); Basophils % (Auto) 1 % (0-2.5); Eosinophils # (Auto) 0.1 Thou/mm3 (0.0-0.5); Eosinophils % (Auto) 3 % (0-10); Hemoglobin 10.5 g/dL (13.5-16.0); Immature Granulocytes % (Auto) 0 % (0-0); Immature Granulocytes Auto 0.01 Thou/mm3 (0.00-0.00); Lymphocytes # (Auto) 1.7 Thou/mm3 (1.0-4.8); Lymphocytes % (Auto) 33 % (10-50); Mean Corpuscular HGB Conc 33.9 g/dl (31.0-37.0); Mean Corpuscular Hemoglobin 31.8 pg (25.0-35.0); Mean Corpuscular Volume 94 fL (80-100); Monocytes # (Auto) 0.6 Thou/mm3 (0.0-0.8); Monocytes % (Auto) 12 % (0-12); Neutrophils # (Auto) 2.7 Thou/mm3 (1.8-7.7); Neutrophils % (Auto) 51 % (37-80); Nucleated Red Blood Cell % 0 /100 WBC (0); Platelet Count 91 Thou/mm3 (140-440); RDW Standard Deviation 53.3 fL (35.1-43.9); White Blood Count 5.2 Thou/mm3 (3.8-10.6)
[2024-07-21 06:24] LABS: INR 1.1 (0.9-1.3); Partial Thromboplastin Time 89.4 Seconds (22.0-36.0); Prothrombin Time 12.3 Seconds (9.0-12.2)
[2024-07-21 06:36] LABS: Anion Gap 10 (7-16); BUN/Creatinine Ratio 5 Ratio (12-20); Blood Urea Nitrogen 36 mg/dL (9-23); Calcium 9.4 mg/dL (8.3-10.6); Carbon Dioxide 27.5 mMol/L (20.0-31.0); Chloride 102 mMol/L (98-107); Creatinine (Component) 6.8 mg/dL (0.6-1.3); Estimated Creatinine Clearance 12.6 mL/min (>60); Glucose 101 mg/dL (74-106); Osmolality,Calculated 285 (275-295); Potassium 4.1 mMol/L (3.4-5.1); Sodium 139 mMol/L (136-145); eGFR 8 See Note
--- NOTE | 2024-07-21 08:13 | PC.NURSE ---
BP when CORE JAVA ENGINEER took 186/94, Dr. Kaiser at bedside verbalized 10 mg hydralyzine IV. Recheck BP was 155/83. Dr. Acosta notfied of recheck BP and ordered to not give hydralyzine and to hold oral meds until after matlab developer. Heparin drip off at [address] Albright before procedure.
--- NOTE | 2024-07-21 09:05 | PD.RESPRO ---
Documentation for date of: 07/21/24 Subjective Subjective Interval history: Mr. 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 He was reportedly well until this morning when he awoke at 4 AM due to severe chest pain. The pain was primarily located on the left side of his chest, radiating to his back, and was associated with cold, clammy sweats. He denied shortness of breath, palpitations, or radiation to the arm or jaw. Despite taking a dose of sublingual nitrate at home, the pain did not resolve. After taking his usual daily medications, he called EMS. He was administered one more dose of sublingual nitrate and 162 mg of aspirin, after which the pain subsided. By the time the hospitalist team evaluated him, the chest pain had completely resolved. Given the patient's presentation with typical chest pain and an uptrending troponin level, he was admitted for further management. Nephrology team was consulted for continued HD inpatient. ED COURSE: Afebrile, BP 176/80, HR 85, RR 16, satting 96% on room air. WBC 5.4, Hgb 11.2, PLT 104, sodium 140, potassium 4.9, BUN 39, CR 7.2, GLUCOSE 206, troponin 1.5, BNP 89. UA showed protein, 2+, glucosuria of 3+. U-Tox positive for OPIOID and marijuana. CXR showed enlarged cardiac contour with mild bilateral vascular congestion. EKG showed sinus rhythm without acute ST changes. 07/20/2024 No acute overnight events. Will proceed with HD today. Denies fever, chills, headaches, chest pain, sob, cough, GI or urinary symptoms. Patient seen by cardiology. Angiogram scheduled for tomorrow. 07/21/2024 Examined at bedside. Reports no new symptoms or worsening symptoms. Denies fever, chills, headaches, chest pain, sob, cough, GI or urinary symptoms. Trop downtrending, on Heparin, plan for cath today. Will continue with HD MWF. Will need HD today following cath/contrast. Exam Vital Signs Temp Pulse Resp BP Pulse Ox O2 Del Method 96.6 F L 68 20 155/83 H 98 Room Air 07/21/24 08:00 07/21/24 08:00 07/21/24 08:00 07/21/24 08:12 07/21/24 08:00 07/21/24 08:00 Narrative Exam Physical Exam General: Awake and in no acute distress. Conversational and non-toxic appearing. HEENT: Normocephalic, atraumatic, mucous membranes moist. Heart: Regular rate and rhythm, grade 2/6 systolic ejection murmur best heard at the right upper sternal border. Lungs: Clear to auscultation with no wheezing or crackles. Abdomen: Soft, nondistended, nontender, positive bowel sounds. ?No guarding or rebound tenderness. Neurologic: Alert and oriented x3, no gross neurological deficit, and patient able to move all 4 extremities. Extremities: No edema. Left arm fistula in place. Skin: No rash or ecchymoses. Objective Labs 07/22/24 04:49 07/22/24 04:49 Labs: Laboratory Results - last 24 hr 07/20/24 07/20/24 07/20/24 08:50 10:40 13:38 WBC RBC Hgb Hct MCV MCH MCHC RDW Std Deviation Plt Count Neut % (Auto) Lymph % (Auto) [place] % (Auto) Eos % (Auto) Baso % (Auto) Neut # (Auto) Lymph # (Auto) [place] # (Auto) Eos # (Auto) Baso # (Auto) Immature Gran # (Auto) Absolute Nucleated RBC Immature Gran % Nucleated RBC % PT INR APTT 70.9 H D Sodium 139 Potassium 4.2 D Chloride 103 Carbon Dioxide 27.6 Anion Gap 8 BUN 33 H Creatinine 6.1 H* D Estim Creat Clear Calc 14.5 L eGFR 9 L* BUN/Creatinine Ratio 5 L Glucose 157 H Calculated Osmolality 287 Calcium 9.1 Corrected Calcium 9.3 Phosphorus 3.5 Magnesium 1.7 Troponin I 2.121 H* D 2.016 H* Albumin 3.7 D Triglycerides 72 Cholesterol 119 L LDL Cholesterol, Calc 70 HDL Cholesterol 35 L Cholesterol/HDL Ratio 3.4 L TSH 1.21 07/20/24 07/21/24 21:05 05:16 WBC 5.2 RBC 3.30 L Hgb 10.5 L Hct 31.0 L MCV 94 MCH 31.8 MCHC 33.9 RDW Std Deviation 53.3 H Plt Count 91 L Neut % (Auto) 51 Lymph % (Auto) 33 [place] % (Auto) 12 Eos % (Auto) 3 Baso % (Auto) 1 Neut # (Auto) 2.7 Lymph # (Auto) 1.7 [place] # (Auto) 0.6 Eos # (Auto) 0.1 Baso # (Auto) 0.1 Immature Gran # (Auto) 0.01 H Absolute Nucleated RBC 0.00 Immature Gran % 0 Nucleated RBC % 0 PT 12.3 H INR 1.1 APTT 65.8 H 89.4 H D Sodium 139 Potassium 4.1 Chloride 102 Carbon Dioxide 27.5 Anion Gap 10 BUN 36 H Creatinine 6.8 H* D Estim Creat Clear Calc 12.6 L eGFR 8 L* BUN/Creatinine Ratio 5 L Glucose 101 D Calculated Osmolality 285 Calcium 9.4 Corrected Calcium Phosphorus Magnesium Troponin I Albumin Triglycerides Cholesterol LDL Cholesterol, Calc HDL Cholesterol Cholesterol/HDL Ratio TSH Quality Measures Quality Measures none Advance care planning discussed with:: patient Assessment & Plan Assessment Current Active Medications: Generic Name Dose Route Start Last Admin Trade Name Freq PRN Reason Stop Dose Admin Acetaminophen 650 mg 07/19/24 14:36 Acetaminophen 325 Mg Tablet PO 08/18/24 14:35 Q6H PRN Fever >101.5 Hydrocodone Bitart/Acetaminophen 1 tab 07/19/24 17:33 07/21/24 00:26 Hydrocodone/Apap 7.5/325 Tablet PO 07/24/24 17:32 1 tab Q8HR PRN Administration Pain 7-10 Atorvastatin Calcium 80 mg 07/20/24 21:00 07/20/24 20:39 Atorvastatin Calcium 20 Mg Tablet PO 08/19/24 20:59 80 mg HS KATHERINE Administration Carvedilol 3.125 mg 07/20/24 08:00 07/20/24 17:11 Carvedilol 3.125 Mg Tablet PO 08/19/24 07:59 3.125 mg BIDWM KATHERINE Administration Clopidogrel Bisulfate 75 mg 07/20/24 09:00 07/20/24 11:44 Clopidogrel Bisulfate 75 Mg Tablet PO 08/19/24 08:59 75 mg QDAY KATHERINE Administration Dextrose 25 ml 07/19/24 17:24 Dextrose 50%-Water Inj 50 Ml Syringe IV 08/18/24 17:23 Q15MIN PRN BG 50-70 responsive npo pt Dextrose 50 ml 07/19/24 17:24 Dextrose 50%-Water Inj 50 Ml Syringe IV 08/18/24 17:23 Q15MIN PRN BG <50 OR BG <70 & pt unresponsive Escitalopram Oxalate 20 mg 07/20/24 09:00 07/20/24 11:44 Escitalopram Oxalate 10 Mg Tablet PO 08/19/24 08:59 20 mg QDAY KATHERINE Administration Furosemide 40 mg 07/19/24 18:00 07/21/24 05:08 Furosemide 40 Mg Tablet PO 08/18/24 17:59 40 mg BIDD KATHERINE Administration Glucagon 1 mg 07/19/24 17:24 Glucagon Inj 1 Mg Vial IM Q15MIN PRN BG <70, and no IV access Heparin Sodium/Dextrose 25,000 unit in 250 mls @ 10.886 mls/hr 07/19/24 16:00 07/21/24 07:40 Heparin In D5w Ivpb IV 08/02/24 15:59 0 units/kg/hr .[id number] KATHERINE 0 mls/hr Titration Protocol 10 UNITS/KG/HR Insulin Human Lispro 0 unit 07/19/24 21:00 07/21/24 07:50 Insulin Lispro (Admelog) 1 Unit/0.01 Ml Unit SC 08/18/24 20:59 Not Given ACHS KATHERINE Protocol Labetalol HCl 10 mg 07/19/24 17:45 Labetalol Inj 5 Mg/Ml Vial 20 Ml IVP 08/18/24 17:44 Q8HR PRN SBP > 160 Pantoprazole Sodium 40 mg 07/20/24 09:00 07/20/24 11:44 Pantoprazole 40 Mg Tablet PO 08/19/24 08:59 40 mg QDAY KATHERINE Administration Plan A 69-year-old male with a significant PMH of HTN, DM, ESRD on HD (M/W/F) since 2019, CAD s/p CABG (2011), s/p PCI (2012), AICD, 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 Plan is to continue with inpatient hemodialysis. Per session to be done Wednesday 4/2 in the AM. ESRD HD MWF On hemodialysis this 2019. Still able to make small amount of urine. Renal function consistent with ESRD with creatinine and BUN around baseline. No electrolyte abnormalities. Still no signs of fluid overload on exam. CR 6.8, EGFR 12.6, making some urine. ? Inpatient hemodialysis MWF. ? Oscar do HD today after cath/contrast ? Renally dose meds, avoid overdiuresis and NEPHROTOXINS ? Daily CMP Typical chest pain NSTEMI, likely type I History of CAD s/p CABG, PCI, AICD History of HFrEF [20 to 25%, 2019] History of diabetes mellitus History of hypertension History of DVT with pulmonary embolism, on Eliquis Managed per primary team. Appreciate the opportunity to participate in the care of this patient. Patient case was discussed with attending, Dr. Kaiser. Salty Vallejo DO PGYI Attending Provider Attestation/Addendum Patient seen and examined with resident physician Dr. Pond. Note reviewed, agree with findings and recommendations. S/p cardiac cath-showed multivessel disease. Short run of dialysis scheduled today. Patient currently seen on dialysis. Tolerating dialysis without any problems. Hemodialysis for 2.5 hours, 2K, ultrafiltration 1-2 L, Epogen 6000, no heparin ordered. Plan of care discussed with the dialysis nurse. Please see dialysis flowsheet for further details.
--- NOTE | 2024-07-21 09:13 | PC.SS ---
Addendum entered by Aliza De La Cruz 07/21/24 15:23: SS rounding note: Patient staying, Cardiac Cath and then Dialysis session today. Original Note: SS rounding note: Pending cardiac cath procedure today, if there are no findings patient will discharge home today, 07/21/24.
--- NOTE | 2024-07-21 10:23 | PC.NURSE ---
As per Dr. Albright: hepring gtt to be stoppped, Eliquis on hold until further notice (in case patient is taking Eliquis at this time), Dialysis to be done today.
--- NOTE | 2024-07-21 10:24 | PC.NURSE ---
Dr. Kaiser (Nurse Liaison) made aware of Dr. Albright (Systems Qa Analyst) recommendation for patient to have Dialysis today, in addition to scheduled days. As per Dr. Kaiser, Dialysis department will be notified for dialysis to take place today as recommended
[2024-07-21] MEDS: carVEDILOL 3.125 MG TABLET PO ×2 (11:23→17:06)
--- NOTE | 2024-07-21 12:50 | PC.NURSE ---
patient transfer via gurney to dialysis. meet with vida vazquez at dialysis and hand off report given. vida vazquez assessed groin areas. dressing is clean dry and intact. site is soft, flat, non tender, and no hematoma present.
--- NOTE | 2024-07-21 14:35 | ESPR_ITS ---
Documentation for date of: 07/21/24 Subjective Subjective Interval history: No acute events overnight.?Patient seen and examined at bedside this AM.?Patient denied any episodes of chest pain or shortness of breath overnight. He was unable to sleep well again secondary to back pain. Labs and vitals were reviewed.?24-hour telemetry reviewed, no arrhythmic events, HR remained in the 60-70s. Patient is n.p.o. for left heart cardiac catheterization today and will continue to follow after the left heart cardiac catheterization. Echo 07/20/2024 showed dilated cardiomyopathy with severe LV dysfunction LVEF 30- 35%. RV appears normal with RVSP 25 mmHg. LA is mildly dilated. Aortic valve sclerosis with mild stenosis. Mild mitral regurgitation. Mild tricuspid regurgitation. No change in the systolic function from before and still shows EF of 30 to 35% with global hypokinesis. Review of systems otherwise negative except what is mentioned above. Exam Vital Signs Temp Pulse Resp BP Pulse Ox O2 Del Method 97.8 F 73 18 175/84 H 93 L Room Air 07/21/24 12:51 07/21/24 14:30 07/21/24 12:51 07/21/24 14:30 07/21/24 12:51 07/21/24 12:30 Narrative Exam Physical Exam General: Awake and in no acute distress. Conversational and non-toxic appearing. HEENT: Normocephalic, atraumatic, mucous membranes moist. Heart: Regular rate and rhythm, grade 2/6 systolic ejection murmur best heard at the right upper sternal border. Lungs: Clear to auscultation with no wheezing or crackles. Abdomen: Soft, nondistended, nontender, positive bowel sounds. ?No guarding or rebound tenderness. Neurologic: Alert and oriented x3, no gross neurological deficit, and patient able to move all 4 extremities. Extremities: No edema. Left arm fistula in place. Skin: No rash or ecchymoses. Objective Labs 07/21/24 05:16 07/21/24 05:16 Labs: Laboratory Results - last 24 hr 07/20/24 07/20/24 07/21/24 13:38 21:05 05:16 WBC 5.2 RBC 3.30 L Hgb 10.5 L Hct 31.0 L MCV 94 MCH 31.8 MCHC 33.9 RDW Std Deviation 53.3 H Plt Count 91 L Neut % (Auto) 51 Lymph % (Auto) 33 [place] % (Auto) 12 Eos % (Auto) 3 Baso % (Auto) 1 Neut # (Auto) 2.7 Lymph # (Auto) 1.7 [place] # (Auto) 0.6 Eos # (Auto) 0.1 Baso # (Auto) 0.1 Immature Gran # (Auto) 0.01 H Absolute Nucleated RBC 0.00 Immature Gran % 0 Nucleated RBC % 0 PT 12.3 H INR 1.1 APTT 70.9 H D 65.8 H 89.4 H D Sodium 139 Potassium 4.1 Chloride 102 Carbon Dioxide 27.5 Anion Gap 10 BUN 36 H Creatinine 6.8 H* D Estim Creat Clear Calc 12.6 L eGFR 8 L* BUN/Creatinine Ratio 5 L Glucose 101 D Calculated Osmolality 285 Calcium 9.4 Quality Measures Quality Measures none Advance care planning discussed with:: patient Assessment & Plan Assessment Current Active Medications: Generic Name Dose Route Start Last Admin Trade Name Freq PRN Reason Stop Dose Admin Acetaminophen 650 mg 07/21/24 10:52 Acetaminophen 325 Mg Tablet PO 08/18/24 14:35 Q6H PRN Fever >100.3 Hydrocodone Bitart/Acetaminophen 1 tab 07/19/24 17:33 07/21/24 11:42 Hydrocodone/Apap 7.5/325 Tablet PO 07/24/24 17:32 1 tab Q8HR PRN Administration Pain 7-10 Aspirin 81 mg 07/21/24 12:30 Aspirin Ec 81 Mg Tabec PO 08/20/24 12:29 QDAY KATHERINE Atorvastatin Calcium 80 mg 07/20/24 21:00 07/20/24 20:39 Atorvastatin Calcium 20 Mg Tablet PO 08/19/24 20:59 80 mg HS KATHERINE Administration Carvedilol 3.125 mg 07/20/24 08:00 07/21/24 11:23 Carvedilol 3.125 Mg Tablet PO 08/19/24 07:59 3.125 mg BIDWM KATHERINE Administration Clopidogrel Bisulfate 75 mg 07/20/24 09:00 07/20/24 11:44 Clopidogrel Bisulfate 75 Mg Tablet PO 08/19/24 08:59 75 mg QDAY KATHERINE Administration Dextrose 25 ml 07/19/24 17:24 Dextrose 50%-Water Inj 50 Ml Syringe IV 08/18/24 17:23 Q15MIN PRN BG 50-70 responsive npo pt Dextrose 50 ml 07/19/24 17:24 Dextrose 50%-Water Inj 50 Ml Syringe IV 08/18/24 17:23 Q15MIN PRN BG <50 OR BG <70 & pt unresponsive Escitalopram Oxalate 20 mg 07/20/24 09:00 07/20/24 11:44 Escitalopram Oxalate 10 Mg Tablet PO 08/19/24 08:59 20 mg QDAY KATHERINE Administration Furosemide 40 mg 07/19/24 18:00 07/21/24 05:08 Furosemide 40 Mg Tablet PO 08/18/24 17:59 40 mg BIDD KATHERINE Administration Glucagon 1 mg 07/19/24 17:24 Glucagon Inj 1 Mg Vial IM Q15MIN PRN BG <70, and no IV access Insulin Human Lispro 0 unit 07/19/24 21:00 07/21/24 07:50 Insulin Lispro (Admelog) 1 Unit/0.01 Ml Unit SC 08/18/24 20:59 Not Given ACHS KATHERINE Protocol Labetalol HCl 10 mg 07/19/24 17:45 Labetalol Inj 5 Mg/Ml Vial 20 Ml IVP 08/18/24 17:44 Q8HR PRN SBP > 160 Pantoprazole Sodium 40 mg 07/20/24 09:00 07/20/24 11:44 Pantoprazole 40 Mg Tablet PO 08/19/24 08:59 40 mg QDAY KATHERINE Administration Plan 69-year-old male with past medical history of ESRD on HD M/W/F (followed by Dr. Kaiser), CAD s/p triple CABG 2011 and PCI 2012 (followed by Dr. Matthews), HFrEF (33%) s/p AICD, history of DVT/PE on Eliquis, hypertension, type 2 diabetes, chronic low back pain, and depression who presented to the ED on 07/19/2024 with sharp, constant, pressure-like left upper chest pain with radiation straight to the back. Patient was found to have elevated troponin which uptrended in ED and was subsequently admitted for ACS management and Cardiology was consulted. #Typical chest pain #NSTEMI, likely type I #History of CAD s/p triple CABG and PCI x1 Patient presented to the hospital with complaints of sharp, pressure-like left upper chest pain which woke up patient from sleep, radiating to the back associated with diaphoresis and nausea, resolved after 2 doses of sublingual nitrate, and has has no further episodes while in the hospital thus far. Troponin at the time of admission is 0.115 -> 1.532 EKG done at the time of admission showed sinus rhythm with no ST and T wave changes Chest x-ray showed enlarged cardiac contour Last echo on file done in 2019 showed dilated cardiomyopathy with moderate LVH. ejection fraction is 20-25%. Mild mitral, pulmonic, and tricuspid regurgitation noted. Patient reports last EF was 33% according to his most recent echo with his surface to air weapons officer Dr. Matthews. Patient received loading dose of aspirin totalling 325 mg on 07/19. Patient's last dose of Eliquis was 07/19 morning. 07/20/2024 TTE showed dilated cardiomyopathy with severe LV dysfunction LVEF 30- 35%. RV appears normal with RVSP 25 mmHg. LA is mildly dilated. Aortic valve sclerosis with mild stenosis. Mild mitral regurgitation. Mild tricuspid regurgitation. No change in the systolic function from before and still shows EF of 30 to 35% with global hypokinesis. 07/21/2024 patient has been n.p.o. for the left heart cardiac catheterization which will be completed later today and will follow-up with results. -Heparin drip stopped for the cardiac catheterization -Continue aspirin Plavix for now -Continue atorvastatin 80 mg HS #History of HFrEF (33%) s/p AICD #History of hypertension Patient reports last EF was 33% according to his surface to air weapons officer Dr. Matthews. Echo showed dilated cardiomyopathy with severe LV dysfunction LVEF 30-35%. RV appears normal with RVSP 25 mmHg. LA is mildly dilated. Aortic valve sclerosis with mild stenosis. Mild mitral regurgitation. Mild tricuspid regurgitation. No change in the systolic function from before and still shows EF of 30 to 35% with global hypokinesis. -Continue home Lasix 40 mg BID -Continue home carvedilol 3.125 mg BID -Echo taken pending read -Strict I&O -Daily weight -2g sodium diet #History of DVT with pulmonary embolism Patient takes Eliquis 2.5 mg BID, previously was on warfarin but was stopped. Last dose 4 AM. -May resume home Eliquis Rest of conditions to continue management per primary team: #ESRD on HD M/W/F #History of type 2 diabetes #History of chronic low back pain Patient plan of care was discussed with the attending physician, Dr. Albright. Emeli Elkins, PGY-2 Attending Provider Attestation/Addendum I have personally seen and examined the patient separately on the above date of service and discussed the plan of care with the resident. I reviewed the resident Dr. Kel Ledbetter consultation progress note and agree with the resident findings and plan in the note above and have also edited the documentation to reflect my findings and plan. Chad Albright M.D. Interventional Cardiology
[2024-07-21] MEDS: EPOETIN ALFA-EPBX INJ 10,000 UNIT/ML VIAL (ESRD) 10000 UNIT SC (14:49)
--- NOTE | 2024-07-21 14:50 | ESPR_ITS ---
<Statement entered by Angel Johansen MD - 07/22/24 09:09> Senior Resident Attestation: I supervised/discussed management plan with project management intern physician Dr. Acosta, and was involved in the care of this patient. I personally saw and examined the patient and discussed the assessment and plan with the entire medicine team, including my attending. I agree with the assessment and plan as documented. Patient's care was discussed with attending physician, Dr. Sumner. Angel Johansen MD PGY-2. Documentation for date of: 07/21/24 Subjective Subjective Interval history: Patient went for cardiac cath today and hemodialysis after that Vitals are stable except for mildly elevated blood pressures. Labs done today showed WBC 5.2, Hb 10.5, platelets 91, sodium 139, potassium 4.1, BUN 36, creatinine 6.8 Will observe patient for today and will plan to discharge tomorrow based on patient's clinical condition Exam Vital Signs Temp Pulse Resp BP Pulse Ox O2 Del Method 97.8 F 71 18 176/90 H 93 L Room Air 07/21/24 12:51 07/21/24 14:45 07/21/24 12:51 07/21/24 14:45 07/21/24 12:51 07/21/24 12:30 Narrative Exam General: Awake. Resting comfortably HEENT: Normocephalic, atraumatic, mucous membranes moist. Heart: Regular rate and rhythm, systolic murmur heard at aortic and pulmonary area Lungs: Clear to auscultation with no wheezing or crackles. Abdomen: Soft, nondistended, nontender, positive bowel sounds. ?No guarding or rebound tenderness. Neurologic: Alert and oriented x3, no gross neurological deficit, and patient able to move all 4 extremities. Extremities: AV fistula noted on left arm, continuous murmur noted, no signs of infection Skin: No rash or ecchymoses. Objective Labs 07/22/24 04:49 07/22/24 04:49 Labs: Laboratory Results - last 24 hr 07/20/24 07/21/24 21:05 05:16 WBC 5.2 RBC 3.30 L Hgb 10.5 L Hct 31.0 L MCV 94 MCH 31.8 MCHC 33.9 RDW Std Deviation 53.3 H Plt Count 91 L Neut % (Auto) 51 Lymph % (Auto) 33 [place] % (Auto) 12 Eos % (Auto) 3 Baso % (Auto) 1 Neut # (Auto) 2.7 Lymph # (Auto) 1.7 [place] # (Auto) 0.6 Eos # (Auto) 0.1 Baso # (Auto) 0.1 Immature Gran # (Auto) 0.01 H Absolute Nucleated RBC 0.00 Immature Gran % 0 Nucleated RBC % 0 PT 12.3 H INR 1.1 APTT 65.8 H 89.4 H D Sodium 139 Potassium 4.1 Chloride 102 Carbon Dioxide 27.5 Anion Gap 10 BUN 36 H Creatinine 6.8 H* D Estim Creat Clear Calc 12.6 L eGFR 8 L* BUN/Creatinine Ratio 5 L Glucose 101 D Calculated Osmolality 285 Calcium 9.4 Quality Measures Quality Measures none Advance care planning discussed with:: patient Assessment & Plan Assessment Current Active Medications: Generic Name Dose Route Start Last Admin Trade Name Freq PRN Reason Stop Dose Admin Acetaminophen 650 mg 07/21/24 10:52 Acetaminophen 325 Mg Tablet PO 08/18/24 14:35 Q6H PRN Fever >100.3 Hydrocodone Bitart/Acetaminophen 1 tab 07/19/24 17:33 07/21/24 11:42 Hydrocodone/Apap 7.5/325 Tablet PO 07/24/24 17:32 1 tab Q8HR PRN Administration Pain 7-10 Aspirin 81 mg 07/21/24 12:30 Aspirin Ec 81 Mg Tabec PO 08/20/24 12:29 QDAY KATHERINE Atorvastatin Calcium 80 mg 07/20/24 21:00 07/20/24 20:39 Atorvastatin Calcium 20 Mg Tablet PO 08/19/24 20:59 80 mg HS KATHERINE Administration Carvedilol 3.125 mg 07/20/24 08:00 07/21/24 11:23 Carvedilol 3.125 Mg Tablet PO 08/19/24 07:59 3.125 mg BIDWM KATHERINE Administration Clopidogrel Bisulfate 75 mg 07/20/24 09:00 07/20/24 11:44 Clopidogrel Bisulfate 75 Mg Tablet PO 08/19/24 08:59 75 mg QDAY KATHERINE Administration Dextrose 25 ml 07/19/24 17:24 Dextrose 50%-Water Inj 50 Ml Syringe IV 08/18/24 17:23 Q15MIN PRN BG 50-70 responsive npo pt Dextrose 50 ml 07/19/24 17:24 Dextrose 50%-Water Inj 50 Ml Syringe IV 08/18/24 17:23 Q15MIN PRN BG <50 OR BG <70 & pt unresponsive Escitalopram Oxalate 20 mg 07/20/24 09:00 07/20/24 11:44 Escitalopram Oxalate 10 Mg Tablet PO 08/19/24 08:59 20 mg QDAY KATHERINE Administration Furosemide 40 mg 07/19/24 18:00 07/21/24 05:08 Furosemide 40 Mg Tablet PO 08/18/24 17:59 40 mg BIDD KATHERINE Administration Glucagon 1 mg 07/19/24 17:24 Glucagon Inj 1 Mg Vial IM Q15MIN PRN BG <70, and no IV access Insulin Human Lispro 0 unit 07/19/24 21:00 07/21/24 07:50 Insulin Lispro (Admelog) 1 Unit/0.01 Ml Unit SC 08/18/24 20:59 Not Given ACHS KATHERINE Protocol Labetalol HCl 10 mg 07/19/24 17:45 Labetalol Inj 5 Mg/Ml Vial 20 Ml IVP 08/18/24 17:44 Q8HR PRN SBP > 160 Pantoprazole Sodium 40 mg 07/20/24 09:00 07/20/24 11:44 Pantoprazole 40 Mg Tablet PO 08/19/24 08:59 40 mg QDAY KATHERINE Administration Plan A 69-year-old male with significant past medical history of hypertension, diabetes mellitus, ESRD on HD [M/W/F] since 2019, CAD s/p CABG [2011], s/p PCI [2012], AICD, history of DVT with pulmonary embolism on Eliquis, depression presented to the hospital with chief complaints of chest pain since 6 hours. # Typical chest pain # NSTEMI, likely type I # History of CAD s/p CABG, PCI, AICD # History of HFrEF [20 to 25%, 2019] -Patient presented to the hospital with complaints of chest pain on the left side radiating to the back associated with cold clammy sweats -Chest pain resolved with 2 doses of sublingual nitrate and patient is pain-free since then -At baseline, patient is able to do his routine daily activities without any chest pain -Vitals are stable at the time of admission except for mildly elevated blood pressures -On physical examination, noted systolic murmur at aortic and pulmonary area -Troponin at the time of admission is 0.115 > 1.53 > 2.7 > 3 > 2.12 > 2.06 -EKG done at the time of admission showed sinus rhythm with no ST and T wave changes -Chest x-ray showed enlarged cardiac contour -Echo done in 2019 showed dilated cardiomyopathy with moderate LVH. ejection fraction is 20-25%. Mild mitral, pulmonic, and tricuspid regurgitation noted. -Echo done in this hospital admission showed EF of 30 to 35% based on inspector timers notes, still pending official report Plan -Total dose of aspirin 324 Mg and 80 Mg of atorvastatin is given -Cardiology is consulted, Cardiac cath done today, pending today -Started on his home medications including carvedilol, Plavix, atorvastatin and Lasix # History of diabetes mellitus -Glucose at the time of presentation is 206 -Patient is using glimepiride 2.5 Mg p.o. daily Plan -Started on insulin sliding scale, ACHS -Hypoglycemia protocol in place -A1c is ordered -5.6, recommended patient to talk to his PCP about discontinuation of glimepiride # History of hypertension -Blood pressure at the time of admission is 176/80 mmHg -Patient is using carvedilol 3.125 Mg p.o. twice daily, lisinopril 5 Mg p.o. daily, Lasix 40 Mg p.o. twice daily at home Plan -Low-sodium diet -Started on his home medications -Will continue to monitor blood pressures and titrate medication accordingly -Labetalol as needed if blood pressure greater than 160 # ESRD on HD [M/W/F] -Patient is on hemodialysis since 2019 -Following with Dr. Kaiser, last dialysis session is on 07/18/2024 -AV fistula site looks clean on left upper arm Plan -Nephrology is consulted -Patient received HD on 07/20, 07/21 -Will avoid nephrotoxic medications and renally dose medications # History of DVT with pulmonary embolism, on Eliquis -Patient is scheduled for cardiac cath 2 days later for which Eliquis is held -Started on heparin drip for chest pain which will take care of anticoagulation -Will resume Eliquis on discharge Hospital Maintenance: Dispo: Telemetry DVT ppx: Heparin GI ppx: Pantoprazole Diet: Low-salt, renal diet IV lines: Peripheral Code status: Full code Patient plan of care was discussed with the attending physician, Dr. Sumner and senior resident Dr. Eleno Acosta, PGY1 Attending Provider Attestation/Addendum Face to face evaluation was performed by me. I have personally seen and examined the patient. I discussed the assessment and plan with the entire medicine team. I reviewed available medical records, imaging studies, laboratory results. I agree with the above subjective data, objective findings, assessment and plan except as corrected by me or noted below # NSTEMI/ ACS # History of CAD s/p CABG, PCI, AICD # History of HFrEF [30 to 35%, 2024] # History of t2 diabetes mellitus # History of essential hypertension # ESRD on HD [M/W/F] - Continue medications as ordered, HD per Nephrology LHC per Cardio More than > 30 minutes spent on the encounter
[2024-07-21] MEDS: ESCITALOPRAM OXALATE 10 MG TABLET 20 MG PO (16:03)
[2024-07-21] MEDS: CLOPIDOGREL BISULFATE 75 MG TABLET PO (16:03)
[2024-07-21] MEDS: PANTOPRAZOLE 40 MG TABLET PO (16:03)
[2024-07-21] MEDS: ASPIRIN EC 81 MG TABEC PO (16:11)
--- NOTE | 2024-07-21 18:52 | PD.CARDCATH ---
Cardiac Cath Procedure Procedure Name Date of procedure: 07/21/2024 dividing machine operator helper: Chad Albright MD Procedures performed: 1. Left heart cardiac catheterization including global left and right coronary angiogram as well as bypass graft angiograms and left ventriculogram-CPT code 71673 2. Moderate conscious sedation for 30 minutes 3. Ultrasound-guided access of the right and left femoral arteries 4. Right iliofemoral angiogram 5. Left iliofemoral angiogram 6. Left subclavian angiogram Procedure Narrative Indication: NSTEMI History of present illness: A 69-year-old male with a past medical history of CAD status post CABG x 3 in 2011, unknown grafts, status post PCI of one of the grafts in 2012, severe systolic congestive heart failure with an EF of less than 35% status post single-chamber AICD placement in 2021, possible ischemic cardiomyopathy, previously followed by Dr. Matthews in [place], history of recurrent DVT as well as PE on Eliquis, previously on warfarin, ESRD on HD, type 2 diabetes mellitus, essential hypertension, hyperlipidemia obesity, chronic smoker with more than [id number] smoking history quit in 2011, substance abuse including marijuana abuse, history of thrombocytopenia questionable ITP, chronic anemia, chronic low back pain, depression, family history of cancer presented to the emergency department for further evaluation of chest pain the chest pressure that woke up from sleep on the morning of admission around 4 AM. Patient's pain lasted for 2 hours and troponins peaked around 3.2 and then down trended. Patient has been chest pain-free since then. Patient was recommended left heart cardiac catheterization with bypass graft angiograms and left ventriculogram given the NSTEMI. Left heart cardiac catheterization was delayed as the patient was on Eliquis and had to wait 48 hours. Patient explained risk medication alternatives of performing a left heart cardiac catheterization including risks of bleeding, stroke, heart attack and in detail. Patient agreeable for the procedure and provided the consent for the same. H&P updated. Description of the procedure: The patient was brought to the cardiac catheterization lab and all asceptic precautions were followed. Patient was given 1 Mg of Versed and 50 mcg of fentanyl for moderate conscious sedation. 2 mL of lidocaine was given in the right wrist. The right femoral artery was accessed with the help of ultrasound guidance as well as a micropuncture technique. Poor blood return was noted from the micropuncture needle and right iliofemoral angiogram was performed which showed 100% occluded right femoral artery and hence the left femoral artery was again accessed with the help of ultrasound guidance as well as micropuncture technique. A 5 [place] femoral sheath was placed and diagnostic angiograms were performed with a 5 [place] FL 4 as well as a 5 [place] FL 4 including a left subclavian angiogram, right and left coronary angiograms and bypass/angiograms. 1. Left main is large and long without any significant stenosis. 2. LAD is a large sized artery with severe calcification and 100% occlusion in the mid LAD and severe disease in the proximal LAD 3. LCx is a medium sized artery with severe disease in the proximal and mid segments. Small OM 2 without significant disease 4. RCA is a large sized artery with severe disease in the proximal portion and 100% occluded in the midportion with good right to right collaterals. 5. VILLASEÑOR to LAD is patent with patent stent in the VILLASEÑOR to LAD anastomosis in the no significant disease. 6. SVG to RCA is 100% occluded and known occluded previously. 7. SVG to OM1 is patent but with moderate to severe disease with 60 to 70% percent in the proximal as well as the distal anastomotic site of OM1 but has good NADYA-3 flow. 8. LVEF is severely reduced at 30 to 35% with severe global hypokinesis. LVEDP was elevated at 28 mmHg. There was no significant transvalvular aortic gradient-5 mmHg. Right and left femoral angiograms were performed which showed 1. 100% occluded right common femoral artery with severe calcified disease and hence left femoral approach was obtained. 2. Severely calcified left common femoral artery with mild to moderate disease Manual manual pressure was used to obtain hemostasis of the left femoral access. Patient will be monitored in the cardiac user support specialist for the next 2 to 3 hours and will be sent to telemetry later today if hemodynamically stable. Complications: None Specimens: None Blood loss: Estimated 5-10 ml Summary/findings: 1. NSTEMI: Peak troponin of 3.2. LHC showed moderate to severe disease with 60 to 70% stenosis of the SVG to OM1 graft including the proximal segment as well as distal anastomotic site of OM1 but had good NADYA-3 flow. VILLASEÑOR to LAD is patent with stent in V[place]ASEÑ[place] to LAD anastomotic site patent. Known occluded SVG to RCA graft. Patient does have severe [place] CAD. Left main with no significant disease, LAD 100% mid occlusion and severe proximal disease, LCx severe 90% disease in the proximal and midportion, RCA with severe proximal disease and 100% mid occlusion but with good right to right collaterals. Small OM2 without any significant disease. 2. Severely reduced LVEF at 30 to 35% with elevated LVEDP at 28 mmHg. No significant transvalvular aortic gradient. 3. Severe PAD with 100% occluded right common femoral artery as well as mild to moderate disease in the left common femoral artery Recommendations: 1. Recommended aggressive risk factor modification and aggressive medical treatment with Plavix, Eliquis as well as high intensity statin and beta-elver. 2. Patient will need complex PCI of the SVG to OM1 graft for the moderate to severe stenosis with filter placement and will be performed at a later date at [facility] as the patient is asymptomatic at the present point of time and also patient is severely the reduced ejection fraction with ischemic cardiomyopathy with an EF of 30 to 35% status post AICD and with multiple comorbidities including end-stage renal disease on hemodialysis and severe PAD as noted above 3. Patient will need vascular surgery consultation for his severe PAD and possible intervention for the heart percent occluded right common femoral artery with endarterectomy or endovascular treatment. Will need to refer. 4. Recommended no lifting more than 5 pounds for next 7-10 days and follow up in my office in 7 days. Chad Albright MD Interventional Cardiology.
--- NOTE | 2024-07-21 19:33 | PC.NURSE ---
Per Dr. Karla cespedes to transfer patient from rags laborer to dialysis. At dialysis groin site intact from rags laborer with no signs of bleeding.
[2024-07-21] MEDS: ATORVASTATIN CALCIUM 20 MG TABLET 80 MG PO (20:31)
[2024-07-21] MEDS: INSULIN LISPRO (AdmeLOG) 1 UNIT/0.01 ML UNIT SC (20:36)
[2024-07-22] VITALS (20 sets, daily range): BP systolic 130–175; BP diastolic 64–93; PULSE 61–103; RESP 11–35; TEMP 36.1–37; O2SAT 93–96; BMI 32.4
[2024-07-22] MEDS: HYDROcodone/APAP 7.5/325 TABLET 1 TAB PO (04:10)
[2024-07-22] MEDS: Furosemide 40 MG TABLET PO (05:22)
[2024-07-22 05:37] LABS: Basophils % (Auto) 1 % (0-2.5); Eosinophils # (Auto) 0.1 Thou/mm3 (0.0-0.5); Eosinophils % (Auto) 2 % (0-10); Immature Granulocytes % (Auto) 0 % (0-0); Immature Granulocytes Auto 0.01 Thou/mm3 (0.00-0.00); Lymphocytes # (Auto) 1.2 Thou/mm3 (1.0-4.8); Lymphocytes % (Auto) 25 % (10-50); Mean Corpuscular HGB Conc 33.3 g/dl (31.0-37.0); Mean Corpuscular Volume 96 fL (80-100); Monocytes # (Auto) 0.7 Thou/mm3 (0.0-0.8); Monocytes % (Auto) 15 % (0-12); Neutrophils # (Auto) 2.8 Thou/mm3 (1.8-7.7); Neutrophils % (Auto) 58 % (37-80); Nucleated Red Blood Cell % 0 /100 WBC (0); Platelet Count 84 Thou/mm3 (140-440); RDW Standard Deviation 54.9 fL (35.1-43.9); Red Blood Count 3.44 Miln/mm3 (4.50-5.90); White Blood Count 4.8 Thou/mm3 (3.8-10.6)
[2024-07-22 06:11] LABS: Anion Gap 10 (7-16); BUN/Creatinine Ratio 5 Ratio (12-20); Blood Urea Nitrogen 32 mg/dL (9-23); Calcium 9.7 mg/dL (8.3-10.6); Carbon Dioxide 29.9 mMol/L (20.0-31.0); Chloride 97 mMol/L (98-107); Creatinine (Component) 6.4 mg/dL (0.6-1.3); Estimated Creatinine Clearance 13.4 mL/min (>60); Glucose 140 mg/dL (74-106); Osmolality,Calculated 282 (275-295); Sodium 137 mMol/L (136-145); eGFR 9 See Note
[2024-07-22] MEDS: APIXABAN 2.5 MG TABLET PO (11:33)
[2024-07-22] MEDS: ESCITALOPRAM OXALATE 10 MG TABLET 20 MG PO (11:33)
[2024-07-22] MEDS: CLOPIDOGREL BISULFATE 75 MG TABLET PO (11:34)
[2024-07-22] MEDS: INSULIN LISPRO (AdmeLOG) 1 UNIT/0.01 ML UNIT SC (11:34)
[2024-07-22] MEDS: PANTOPRAZOLE 40 MG TABLET PO (11:34)
--- NOTE | 2024-07-22 12:43 | ESPR_ITS ---
Documentation for date of: 07/22/24 Subjective Subjective Interval history: Mr. 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 He was reportedly well until this morning when he awoke at 4 AM due to severe chest pain. The pain was primarily located on the left side of his chest, radiating to his back, and was associated with cold, clammy sweats. He denied shortness of breath, palpitations, or radiation to the arm or jaw. Despite taking a dose of sublingual nitrate at home, the pain did not resolve. After taking his usual daily medications, he called EMS. He was administered one more dose of sublingual nitrate and 162 mg of aspirin, after which the pain subsided. By the time the hospitalist team evaluated him, the chest pain had completely resolved. Given the patient's presentation with typical chest pain and an uptrending troponin level, he was admitted for further management. Nephrology team was consulted for continued HD inpatient. ED COURSE: Afebrile, BP 176/80, HR 85, RR 16, satting 96% on room air. WBC 5.4, Hgb 11.2, PLT 104, sodium 140, potassium 4.9, BUN 39, CR 7.2, GLUCOSE 206, troponin 1.5, BNP 89. UA showed protein, 2+, glucosuria of 3+. U-Tox positive for OPIOID and marijuana. CXR showed enlarged cardiac contour with mild bilateral vascular congestion. EKG showed sinus rhythm without acute ST changes. 07/20/2024 No acute overnight events. Will proceed with HD today. Denies fever, chills, headaches, chest pain, sob, cough, GI or urinary symptoms. Patient seen by cardiology. Angiogram scheduled for tomorrow. 07/21/2024 Examined at bedside. Reports no new symptoms or worsening symptoms. Denies fever, chills, headaches, chest pain, sob, cough, GI or urinary symptoms. Trop downtrending, on Heparin, plan for cath today. Will continue with HD MWF. Will need HD today following cath/contrast. 07/22/2024 Examined in HD room, feeling well without new complaints. Had cath yesterday showing EF 30-35% and severe PAD. Renal function stable. Will do HD today. Denies fever, chills, headaches, chest pain, sob, cough, GI or urinary symptoms. Exam Vital Signs Temp Pulse Resp BP Pulse Ox O2 Del Method 97.9 F 78 35 H 149/93 H 95 Room Air 07/22/24 12:00 07/22/24 12:00 07/22/24 12:00 07/22/24 12:00 07/22/24 12:07/22/24 12:00 Narrative Exam Physical Exam General: Awake and in no acute distress. Conversational and non-toxic appearing. HEENT: Normocephalic, atraumatic, mucous membranes moist. Heart: Regular rate and rhythm, grade 2/6 systolic ejection murmur best heard at the right upper sternal border. Lungs: Clear to auscultation with no wheezing or crackles. Abdomen: Soft, nondistended, nontender, positive bowel sounds. ?No guarding or rebound tenderness. Neurologic: Alert and oriented x3, no gross neurological deficit, and patient able to move all 4 extremities. Extremities: No edema. Left arm fistula in place. Skin: No rash or ecchymoses. Objective Labs 07/22/24 04:49 07/22/24 04:49 Labs: Laboratory Results - last 24 hr 07/22/24 04:49 WBC 4.8 RBC 3.44 L Hgb 11.0 L Hct 33.0 L MCV 96 MCH 32.0 MCHC 33.3 RDW Std Deviation 54.9 H Plt Count 84 L Neut % (Auto) 58 Lymph % (Auto) 25 [place] % (Auto) 15 H Eos % (Auto) 2 Baso % (Auto) 1 Neut # (Auto) 2.8 Lymph # (Auto) 1.2 [place] # (Auto) 0.7 Eos # (Auto) 0.1 Baso # (Auto) 0.0 Immature Gran # (Auto) 0.01 H Absolute Nucleated RBC 0.00 Immature Gran % 0 Nucleated RBC % 0 Sodium 137 Potassium 4.0 Chloride 97 L Carbon Dioxide 29.9 Anion Gap 10 BUN 32 H Creatinine 6.4 H* Estim Creat Clear Calc 13.4 L eGFR 9 L* BUN/Creatinine Ratio 5 L Glucose 140 H Calculated Osmolality 282 Calcium 9.7 Quality Measures Quality Measures none Advance care planning discussed with:: patient Assessment & Plan Assessment Current Active Medications: Generic Name Dose Route Start Last Admin Trade Name Freq PRN Reason Stop Dose Admin Acetaminophen 650 mg 07/21/24 10:52 Acetaminophen 325 Mg Tablet PO 08/18/24 14:35 Q6H PRN Fever >100.3 Hydrocodone Bitart/Acetaminophen 1 tab 07/19/24 17:33 07/22/24 04:10 Hydrocodone/Apap 7.5/325 Tablet PO 07/24/24 17:32 1 tab Q8HR PRN Administration Pain 7-10 Apixaban 2.5 mg 07/21/24 21:00 07/22/24 11:33 Apixaban 2.5 Mg Tablet PO 08/11/24 20:59 2.5 mg BID KATHERINE Administration Atorvastatin Calcium 80 mg 07/20/24 21:00 07/21/24 20:31 Atorvastatin Calcium 20 Mg Tablet PO 08/19/24 20:59 80 mg HS KATHERINE Administration Carvedilol 3.125 mg 07/20/24 08:00 07/22/24 11:39 Carvedilol 3.125 Mg Tablet PO 08/19/24 07:59 Not Given BIDWM KATHERINE Clopidogrel Bisulfate 75 mg 07/20/24 09:00 07/22/24 11:34 Clopidogrel Bisulfate 75 Mg Tablet PO 08/19/24 08:59 75 mg QDAY KATHERINE Administration Dextrose 25 ml 07/19/24 17:24 Dextrose 50%-Water Inj 50 Ml Syringe IV 08/18/24 17:23 Q15MIN PRN BG 50-70 responsive npo pt Dextrose 50 ml 07/19/24 17:24 Dextrose 50%-Water Inj 50 Ml Syringe IV 08/18/24 17:23 Q15MIN PRN BG <50 OR BG <70 & pt unresponsive Escitalopram Oxalate 20 mg 07/20/24 09:00 07/22/24 11:33 Escitalopram Oxalate 10 Mg Tablet PO 08/19/24 08:59 20 mg QDAY KATHERINE Administration Furosemide 40 mg 07/19/24 18:00 07/22/24 05:22 Furosemide 40 Mg Tablet PO 08/18/24 17:59 40 mg BIDD KATHERINE Administration Glucagon 1 mg 07/19/24 17:24 Glucagon Inj 1 Mg Vial IM Q15MIN PRN BG <70, and no IV access Insulin Human Lispro 0 unit 07/19/24 21:00 07/22/24 11:34 Insulin Lispro (Admelog) 1 Unit/0.01 Ml Unit SC 08/18/24 20:59 2 unit ACHS KATHERINE Administration Protocol Labetalol HCl 10 mg 07/19/24 17:45 Labetalol Inj 5 Mg/Ml Vial 20 Ml IVP 08/18/24 17:44 Q8HR PRN SBP > 160 Pantoprazole Sodium 40 mg 07/20/24 09:00 07/22/24 11:34 Pantoprazole 40 Mg Tablet PO 08/19/24 08:59 40 mg QDAY KATHERINE Administration Plan A 69-year-old male with a significant PMH of HTN, DM, ESRD on HD (M/W/F) since 2019, CAD s/p CABG (2011), s/p PCI (2012), AICD, 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 Plan is to continue with inpatient hemodialysis. Per session to be done Thursday 07/20 in the AM. ESRD HD MWF On hemodialysis this 2019. Still able to make small amount of urine. Renal function consistent with ESRD with creatinine and BUN around baseline. No electrolyte abnormalities. Still no signs of fluid overload on exam. CR 6.4, EGFR 13.4, making some urine. ? Inpatient hemodialysis MWF. ? Oscar do HD today after cath/contrast ? Renally dose meds, avoid overdiuresis and NEPHROTOXINS ? Daily CMP Typical chest pain NSTEMI, likely type I History of CAD s/p CABG, PCI, AICD History of HFrEF [20 to 25%, 2019] History of diabetes mellitus History of hypertension History of DVT with pulmonary embolism, on Eliquis Managed per primary team. Appreciate the opportunity to participate in the care of this patient. Patient case was discussed with attending, Dr. Kaiser. Salty Vallejo DO PGYI Attending Provider Attestation/Addendum Patient seen and examined with resident physician Dr. Pond. Note reviewed, agree with findings and recommendations. S/p cardiac cath-showed multivessel disease. Patient currently seen on dialysis. Tolerating dialysis without any problems. Hemodialysis for 3 hours, 2K, ultrafiltration 1-2 L, Epogen 6000, no heparin ordered. Plan of care discussed with the dialysis nurse. Please see dialysis flowsheet for further details. Renal marina stable for discharge postdialysis.
--- NOTE | 2024-07-22 13:43 | ESPR_ITS ---
Documentation for date of: 07/22/24 Subjective Subjective Interval history: No acute events overnight.?Patient seen and examined at bedside this AM in the dialysis unit. He is doing well s/p left heart cath yesterday. No no stents were placed although patient may need complex PCI later on in one of the grafts as there was 70% stenosis. As the patient is asymptomatic and EF is low at 30-35% it was decided not to hold off on immediate PCI. He also requires vascular consult as there was occlusion of the right femoral artery. He reports no further episodes of chest pain, shortness of breath, dizziness, or headache. He reports difficulty sleeping due to back pain. Labs and vitals were reviewed.?24- hour telemetry reviewed. Heart rate remained stable in the 70-80 range with occasional PVCs. No further complaints at this time. Patient stable for discharge. Follow up with Dr. Albright in 1 week. Exam Vital Signs Temp Pulse Resp BP Pulse Ox O2 Del Method 97.9 F 78 35 H 149/93 H 95 Room Air 07/22/24 12:00 07/22/24 12:00 07/22/24 12:00 07/22/24 12:00 07/22/24 12:07/22/24 12:00 Narrative Exam Physical Exam General: Awake and in no acute distress. Conversational and non-toxic appearing. HEENT: Normocephalic, atraumatic, mucous membranes moist. Heart: Regular rate and rhythm, grade 2/6 systolic ejection murmur best heard at the right upper sternal border. Lungs: Clear to auscultation with no wheezing or crackles. Abdomen: Soft, nondistended, nontender, positive bowel sounds. ?No guarding or rebound tenderness. Neurologic: Alert and oriented x3, no gross neurological deficit, and patient able to move all 4 extremities. Extremities: No edema. Left arm fistula in place. Skin: No rash or ecchymoses. Objective Labs 07/22/24 04:49 07/22/24 04:49 Labs: Laboratory Results - last 24 hr 07/22/24 04:49 WBC 4.8 RBC 3.44 L Hgb 11.0 L Hct 33.0 L MCV 96 MCH 32.0 MCHC 33.3 RDW Std Deviation 54.9 H Plt Count 84 L Neut % (Auto) 58 Lymph % (Auto) 25 [place] % (Auto) 15 H Eos % (Auto) 2 Baso % (Auto) 1 Neut # (Auto) 2.8 Lymph # (Auto) 1.2 [place] # (Auto) 0.7 Eos # (Auto) 0.1 Baso # (Auto) 0.0 Immature Gran # (Auto) 0.01 H Absolute Nucleated RBC 0.00 Immature Gran % 0 Nucleated RBC % 0 Sodium 137 Potassium 4.0 Chloride 97 L Carbon Dioxide 29.9 Anion Gap 10 BUN 32 H Creatinine 6.4 H* Estim Creat Clear Calc 13.4 L eGFR 9 L* BUN/Creatinine Ratio 5 L Glucose 140 H Calculated Osmolality 282 Calcium 9.7 Quality Measures Quality Measures none Advance care planning discussed with:: patient Assessment & Plan Assessment Current Active Medications: Generic Name Dose Route Start Last Admin Trade Name Freq PRN Reason Stop Dose Admin Acetaminophen 650 mg 07/21/24 10:52 Acetaminophen 325 Mg Tablet PO 08/18/24 14:35 Q6H PRN Fever >100.3 Hydrocodone Bitart/Acetaminophen 1 tab 07/19/24 17:33 07/22/24 04:10 Hydrocodone/Apap 7.5/325 Tablet PO 07/24/24 17:32 1 tab Q8HR PRN Administration Pain 7-10 Apixaban 2.5 mg 07/21/24 21:00 07/22/24 11:33 Apixaban 2.5 Mg Tablet PO 08/11/24 20:59 2.5 mg BID KATHERINE Administration Atorvastatin Calcium 80 mg 07/20/24 21:00 07/21/24 20:31 Atorvastatin Calcium 20 Mg Tablet PO 08/19/24 20:59 80 mg HS KATHERINE Administration Carvedilol 3.125 mg 07/20/24 08:00 07/22/24 11:39 Carvedilol 3.125 Mg Tablet PO 08/19/24 07:59 Not Given BIDWM KATHERINE Clopidogrel Bisulfate 75 mg 07/20/24 09:00 07/22/24 11:34 Clopidogrel Bisulfate 75 Mg Tablet PO 08/19/24 08:59 75 mg QDAY KATHERINE Administration Dextrose 25 ml 07/19/24 17:24 Dextrose 50%-Water Inj 50 Ml Syringe IV 08/18/24 17:23 Q15MIN PRN BG 50-70 responsive npo pt Dextrose 50 ml 07/19/24 17:24 Dextrose 50%-Water Inj 50 Ml Syringe IV 08/18/24 17:23 Q15MIN PRN BG <50 OR BG <70 & pt unresponsive Escitalopram Oxalate 20 mg 07/20/24 09:00 07/22/24 11:33 Escitalopram Oxalate 10 Mg Tablet PO 08/19/24 08:59 20 mg QDAY KATHERINE Administration Furosemide 40 mg 07/19/24 18:00 07/22/24 05:22 Furosemide 40 Mg Tablet PO 08/18/24 17:59 40 mg BIDD KATHERINE Administration Glucagon 1 mg 07/19/24 17:24 Glucagon Inj 1 Mg Vial IM Q15MIN PRN BG <70, and no IV access Insulin Human Lispro 0 unit 07/19/24 21:00 07/22/24 11:34 Insulin Lispro (Admelog) 1 Unit/0.01 Ml Unit SC 08/18/24 20:59 2 unit ACHS KATHERINE Administration Protocol Labetalol HCl 10 mg 07/19/24 17:45 Labetalol Inj 5 Mg/Ml Vial 20 Ml IVP 08/18/24 17:44 Q8HR PRN SBP > 160 Pantoprazole Sodium 40 mg 07/20/24 09:00 07/22/24 11:34 Pantoprazole 40 Mg Tablet PO 08/19/24 08:59 40 mg QDAY KATHERINE Administration Plan 69-year-old male with past medical history of ESRD on HD // (followed by Dr. Kaiser), CAD s/p triple CABG 2011 and PCI 2012 (followed by Dr. Matthews), HFrEF (33%) s/p AICD, history of DVT/PE on Eliquis, hypertension, type 2 diabetes, chronic low back pain, and depression who presented to the ED on 07/19/2024 with sharp, constant, pressure-like left upper chest pain with radiation straight to the back. Patient was found to have elevated troponin which uptrended in ED and was subsequently admitted for ACS management and Cardiology was consulted. #Typical chest pain #NSTEMI, likely type I #History of CAD s/p triple CABG and PCI x1 Patient presented to the hospital with complaints of sharp, pressure-like left upper chest pain which woke up patient from sleep, radiating to the back associated with diaphoresis and nausea, resolved after 2 doses of sublingual nitrate, and has has no further episodes while in the hospital thus far. Troponin at the time of admission is 0.115 -> 1.532 EKG done at the time of admission showed sinus rhythm with no ST and T wave changes Chest x-ray showed enlarged cardiac contour Last echo on file done in 2019 showed dilated cardiomyopathy with moderate LVH. ejection fraction is 20-25%. Mild mitral, pulmonic, and tricuspid regurgitation noted. Patient reports last EF was 33% according to his most recent echo with his gynecological assistant Dr. Matthews. Patient received loading dose of aspirin totalling 325 mg on 07/19. Patient's last dose of Eliquis was 07/19 morning. 07/20/2024 TTE showed dilated cardiomyopathy with severe LV dysfunction LVEF 30- 35%. RV appears normal with RVSP 25 mmHg. LA is mildly dilated. Aortic valve sclerosis with mild stenosis. Mild mitral regurgitation. Mild tricuspid regurgitation. No change in the systolic function from before and still shows EF of 30 to 35% with global hypokinesis. 07/21/2024 Cardiac left heart cath done, see operative report for details. -Continue Plavix 75 mg qday -Stop aspirin 81 mg qday -Continue atorvastatin 80 mg HS -Stable for discharge -Follow up with Dr. Albright in 1 week in the office #History of HFrEF (33%) s/p AICD #History of hypertension Patient reports last EF was 33% according to his gynecological assistant Dr. Matthews. Echo showed dilated cardiomyopathy with severe LV dysfunction LVEF 30-35%. RV appears normal with RVSP 25 mmHg. LA is mildly dilated. Aortic valve sclerosis with mild stenosis. Mild mitral regurgitation. Mild tricuspid regurgitation. No change in the systolic function from before and still shows EF of 30 to 35% with global hypokinesis. -Continue home Lasix 40 mg BID -Continue home carvedilol 3.125 mg BID -Strict I&O -Daily weight -2g sodium diet #History of DVT with pulmonary embolism Patient takes Eliquis 2.5 mg BID, previously was on warfarin but was stopped. Last dose 07/19 AM. -May resume home Eliquis Rest of conditions to continue management per primary team: #ESRD on HD M/W/F #History of type 2 diabetes #History of chronic low back pain Patient plan of care was discussed with the attending physician, Dr. Albright. Emeli Elkins, PGY-2 Attending Provider Attestation/Addendum I have personally seen and examined the patient separately on the above date of service and discussed the plan of care with the resident. I reviewed the resident Dr. Emeli Elkins consultation progress note and agree with the resident findings and plan in the note above and have also edited the documentation to reflect my findings and plan. A 69-year-old male with a past medical history of CAD status post CABG x 3 in 2011, unknown grafts, status post PCI of one of the grafts in 2012, severe systolic congestive heart failure with an EF of less than 35% status post single-chamber AICD placement in 2021, possible ischemic cardiomyopathy, previously followed by Dr. 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 Patient's pain lasted for 2 hours and troponins peaked around 3.2 and then down trended. Patient has been chest pain-free since then. Patient was recommended left heart cardiac catheterization with bypass graft angiograms and left ventriculogram given the NSTEMI. Left heart cardiac catheterization was delayed as the patient was on Eliquis and had to wait 48 hours. Patient explained risk medication alternatives of performing a left heart cardiac catheterization including risks of bleeding, stroke, heart attack and in detail. Patient agreeable for the procedure and provided the consent for the same. [facility] showed 1. Left main is large and long without any significant stenosis. 2. LAD is a large sized artery with severe calcification and 100% occlusion in the mid LAD and severe disease in the proximal LAD 3. LCx is a medium sized artery with severe disease in the proximal and mid segments. Small OM 2 without significant disease 4. RCA is a large sized artery with severe disease in the proximal portion and 100% occluded in the midportion with good right to right collaterals. 5. V[place]ASE[place] to LAD is patent with patent stent in the [place] to LAD anastomosis in the no significant disease. 6. SVG to RCA is 100% occluded and known occluded previously. 7. SVG to OM1 is patent but with moderate to severe disease with 60 to 70% percent in the proximal as well as the distal anastomotic site of OM1 but has good NADYA-3 flow. 8. LVEF is severely reduced at 30 to 35% with severe global hypokinesis. LVEDP was elevated at 28 mmHg. There was no significant transvalvular aortic gradient-5 mmHg. Right and left femoral angiograms were performed which showed 1. 100% occluded right common femoral artery with severe calcified disease and hence left femoral approach was obtained. 2. Severely calcified left common femoral artery with mild to moderate disease Summary/findings: 1. NSTEMI: Peak troponin of 3.2. LHC showed moderate to severe disease with 60 to 70% stenosis of the SVG to OM1 graft including the proximal segment as well as distal anastomotic site of OM1 but had good NADYA-3 flow. V[place]ASE[place] to LAD is patent with stent in [place] to LAD anastomotic site patent. Known occluded SVG to RCA graft. Patient does have severe [place] CAD. Left main with no significant disease, LAD 100% mid occlusion and severe proximal disease, LCx severe 90% disease in the proximal and midportion, RCA with severe proximal disease and 100% mid occlusion but with good right to right collaterals. Small OM2 without any significant disease. 2. Severely reduced LVEF at 30 to 35% with elevated LVEDP at 28 mmHg. No significant transvalvular aortic gradient. 3. Severe PAD with 100% occluded right common femoral artery as well as mild to moderate disease in the left common femoral artery Recommendations: 1. Recommended aggressive risk factor modification and aggressive medical treatment with Plavix, Eliquis as well as high intensity statin and beta- elver. 2. Patient will need complex PCI of the SVG to OM1 graft for the moderate to severe stenosis with filter placement and will be performed at a later date at [facility] as the patient is asymptomatic at the present point of time and also patient is severely the reduced ejection fraction with ischemic cardiomyopathy with an EF of 30 to 35% status post AICD and with multiple comorbidities including end-stage renal disease on hemodialysis and severe PAD as noted above 3. Patient will need vascular surgery consultation for his severe PAD and possible intervention for the 100% occluded right common femoral artery with endarterectomy or endovascular treatment. 4. Recommended no lifting more than 5 pounds for next 7-10 days and follow up in my office in 7 days. Chad Albright MD Interventional Cardiology.
--- NOTE | 2024-07-22 13:46 | PC.SS ---
SS follow up note; Patient will discharge today.
--- NOTE | 2024-07-22 14:07 | ESDS_ITS ---
Planned Discharge Date 07/22/24 DS: Providers Provider Date of admission: 07/19/24 15:21 Primary care physician: Physician No Primary/Family Admitting Provider: Scott Rajput MD Attending Provider on Admission: Wesly Sumner MD Consults: 07/19/24 14:48 Consult to Cardiology Stat Comment: Consulting Provider: Chad Albright 07/19/24 17:16 Consult to Nephrology Routine Comment: ESRD on HD Consulting Provider: Martine Kaiser 07/20/24 01:31 Referral Infection Control Routine Comment: Reason for Infection Control Referral: Current Dialysis Patient Health Equity Referral - Nutrition Routine Comment: Positive screening for nutrition needs. Attending Provider on DC: Shaan Acosta MD Discharging Provider: Shaan Acosta MD DS: Diagnosis Problem List Completed Was Problem List Reviewed/Reconciled?: Yes Hospital Course Hospital Course Hospital course: A 69-year-old male with significant past medical history of hypertension, diabetes mellitus, ESRD on HD [M/W/F] since 2019, CAD s/p CABG [2011], s/p PCI [2013], AICD, history of DVT with pulmonary embolism on Eliquis, depression presented to the hospital with chief complaints of chest pain. EKG shows sinus rhythm with T wave inversions in I, aVL, V5 and V6 which can be the changes from previous [place]. Echo showed dilated cardiomyopathy with severe LV dysfunction LVEF 30-35%. RV appears normal with RVSP 25 mmHg. LA is mildly dilated. Aortic valve sclerosis with mild stenosis. Mild mitral regurgitation. Mild tricuspid regurgitation. No change in the systolic function from before and still shows EF of 30 to 35% with global hypokinesis. Notes from the hvac manager include Summary/findings: 1. NSTEMI: Peak troponin of 3.2. LHC showed moderate to severe disease with 60 to 70% stenosis of the SVG to OM1 graft including the proximal segment as well as distal anastomotic site of OM1 but had good NADYA-3 flow. VILLASEÑOR to LAD is patent with stent in VILLASEÑOR to LAD homero stomotic site patent. Known occluded SVG to RCA graft. Patient does have severe [place] CAD. Left main with no significant disease, LAD 100% mid occlusion and severe proximal disease, LCx severe 90% disease in the proximal and midportion, RCA with severe proximal disease and 100% mid occlusion but with good right to right collaterals. Small OM2 without any significant disease. 2. Severely reduced LVEF at 30 to 35% with elevated LVEDP at 28 mmHg. No significant transvalvular aortic gradient. 3. Severe PAD with 100% occluded right common femoral artery as well as mild to moderate disease in the left common femoral artery Recommendations: 1. Recommended aggressive risk factor modification and aggressive medical treatment with Plavix, Eliquis as well as high intensity statin and beta-bloc ker. 2. Patient will need complex PCI of the SVG to OM1 graft for the moderate to severe stenosis with filter placement and will be performed at a later date at [facility] as the patient is asymptomatic at the present point of time and also patient is severely the reduced ejection fraction with ischemic cardiomyopathy with an EF of 30 to 35% status post AICD and with multiple comorbidities including end-stage renal disease on hemodialysis and severe PAD as noted above 3. Patient will need vascular surgery consultation for his severe PAD and possible intervention for the heart percent occluded right common femoral artery with endarterectomy or endovascular treatment. Will need to refer. 4. Recommended no lifting more than 5 pounds for next 7-10 days and follow up in my office in 7 days. Patient received HD before and after the cardiac catheterisation # NSTEMI # History of CAD s/p CABG, PCI, AICD # History of HFrEF [30 to 35%, 2024] # History of diabetes mellitus # History of hypertension # ESRD on HD [M/W/F] # History of DVT with pulmonary embolism, on Eliquis Patient plan of care was discussed with the attending physician, Dr. Sumner and senior resident Dr. Eleno Acosta, PGY1 Time Spent with Patient Time attestation: Total time spent providing and/or coordinating discharge services: Time spent: Greater than 30 minutes Exam Vital Signs Temp Pulse Resp BP Pulse Ox O2 Del Method 97.9 F 78 35 H 149/93 H 95 Room Air 07/22/24 12:00 07/22/24 12:00 07/22/24 12:00 07/22/24 12:00 07/22/24 12:07/22/24 12:00 Narrative Exam General: Awake. Resting comfortably HEENT: Normocephalic, atraumatic, mucous membranes moist. Heart: Regular rate and rhythm, systolic murmur heard at aortic and pulmonary area Lungs: Clear to auscultation with no wheezing or crackles. Abdomen: Soft, nondistended, nontender, positive bowel sounds. ?No guarding or rebound tenderness. Neurologic: Alert and oriented x3, no gross neurological deficit, and patient able to move all 4 extremities. Extremities: AV fistula noted on left arm, continuous murmur noted, no signs of infection Skin: No rash or ecchymoses. Discharge Plan Plan Patient Disposition: HOME (Self Care) Care Plan Goals: -Follow-up with PCP within 1 week of discharge. If you do not have appointment, please follow-up with the [facility] with Dr. Acosta. Call [phone] to make an appointment. -Follow up with Dr. Albright within 1 week of discharge. [address] [place] [address], -Continue all home medications and HD as directed -Recommended salt and fluid restriction. -Return to ED if symptoms persist or return Prescriptions/Referrals Prescriptions/Med Rec: Continued clopidogrel 75 mg Tablet 75 mg PO QDAY Qty: 0 0RF Rx Instructions: Hold until Thursday the . Then continue as prescribed. hydrocodone-acetaminophen 7.5-325 mg Tablet 1 tab PO BID PRN (Reason: Pain) atorvastatin 80 mg Tablet 80 mg PO QPM citalopram 20 mg Tablet 20 mg PO HS allopurinol 300 mg Tablet 300 mg PO QDAY nitroglycerin [Nitrostat] 0.4 mg Tablet, Sublingual 0.4 mg buccal PRN PRN (Reason: Chest Pain) Skylar-Edgardo 0.8 mg Tablet 1 tab PO DAILY furosemide 20 mg Tablet 40 mg PO BID Eliquis 2.5 mg tablet 2.5 mg PO BID Patient Comments: TAKE 1 TABLET BY MOUTH TWICE A DAY albuterol sulfate 90 mcg/actuation HFA aerosol inhaler 2 puff INHALATION .[id number] PRN (Reason: shortness of breath or wheezing) Patient Comments: INHALE 2 PUFFS BY MOUTH EVERY 4 TO 6 HOURS NEEDED FOR SHORTNESS OF BREATH metoclopramide HCl 5 mg tablet 5 mg PO BID PRN (Reason: nausea and vomiting) Patient Comments: TAKE 1 TABLET BY MOUTH TWICE A DAY pantoprazole 40 mg tablet,delayed release (DR/EC) 40 mg PO BID Patient Comments: TAKE 1 TABLET BY MOUTH TWICE A DAY glipizide 5 mg tablet 2.5 mg PO DAILY Patient Comments: TAKE 1/2 A TABLET BY MOUTH EVERY DAY gabapentin 300 mg capsule 300 mg PO HS Patient Comments: TAKE 1 CAPSULE BY MOUTH EVERYDAY AT BEDTIME carvedilol 3.125 mg Tablet 3.125 mg PO BID Rx Instructions: must administer with a meal/food lisinopril 5 mg Tablet 5 mg PO QDAY calcium acetate(phosphat bind) 667 mg Capsule 667 mg PO TID ondansetron 8 mg tablet,disintegrating 8 mg PO Q12H PRN (Reason: nausea and vomiting) Qty: 30 0RF Referrals: No Primary/Family,Physician [Primary Care Provider] - Patient/Caregiver Discharge Instructions Education Materials: How Your Kidneys Work, Kidney Disease Potassium in Diet, Kidney Disease Calcium Phosphorus Print Language: Portuguese Stand Alone Forms: [employer] Award Info., Patient Portal Info Letter Discharge Order Discharge Orders: Discharge (Routine); Ordered 07/22/24 Ordered By: Shaan Acosta Quality Discharge Quality Measures VTE prophylaxis Attestestation MD Attestation Face to face evaluation was performed by me. I have personally seen and examined the patient. I discussed the assessment and plan with the entire medicine team. I reviewed available medical records, imaging studies, laboratory results. I agree with the above subjective data, objective findings, assessment and plan except as corrected by me or noted below # NSTEMI/ ACS # History of CAD s/p CABG, PCI, AICD # History of HFrEF [30 to 35%, 2024] # History of t2 diabetes mellitus # History of essential hypertension # ESRD on HD [M/W/F] Patient stable for discharge, fu with PCP and Cardiology after dc More than > 30 minutes spent on the encounter
== END 2024-07-22 16:06 | disposition home or self-care (01) | DRG 280 ==
LOC: SERX 14:13 → SERHOLD 07-20 06:19 → S2NX 07-20 06:19
PROVIDERS: Internal Medicine Cardiovascular Disease; Student in an Organized Health Care Education/Training Program; Admitting Provider Student in an Organized Health Care Education/Training Program; Emergency Provider Emergency Medicine; Visit Provider Internal Medicine
DX: I21.4 Non-ST elevation (NSTEMI) myocardial infarction (principal); N18.6 End stage renal disease; I50.22 Chronic systolic (congestive) heart failure; I13.2 Hypertensive heart and chronic kidney disease with heart failure and with stage 5 chronic kidney disease, or end stage renal disease; I25.810 Atherosclerosis of coronary artery bypass graft(s) without angina pectoris; I42.0 Dilated cardiomyopathy; D69.6 Thrombocytopenia, unspecified; E11.22 Type 2 diabetes mellitus with diabetic chronic kidney disease; I25.10 Atherosclerotic heart disease of native coronary artery without angina pectoris; E11.65 Type 2 diabetes mellitus with hyperglycemia; E66.9 Obesity, unspecified; D63.1 Anemia in chronic kidney disease; R01.1 Cardiac murmur, unspecified; I25.2 Old myocardial infarction; E78.5 Hyperlipidemia, unspecified; F12.10 Cannabis abuse, uncomplicated; F19.10 Other psychoactive substance abuse, uncomplicated; I25.5 Ischemic cardiomyopathy; G89.29 Other chronic pain; Z98.61 Coronary angioplasty status; I70.201 Unspecified atherosclerosis of native arteries of extremities, right leg; Z95.810 Presence of automatic (implantable) cardiac defibrillator; Z99.2 Dependence on renal dialysis; Z86.718 Personal history of other venous thrombosis and embolism; Z86.711 Personal history of pulmonary embolism; Z95.1 Presence of aortocoronary bypass graft; Z79.899 Other long term (current) drug therapy; Z79.84 Long term (current) use of oral hypoglycemic drugs; Z79.82 Long term (current) use of aspirin; Z68.32 Body mass index [BMI] 32.0-32.9, adult; Z79.01 Long term (current) use of anticoagulants; Z79.02 Long term (current) use of antithrombotics/antiplatelets; Z87.891 Personal history of nicotine dependence; Z88.5 Allergy status to narcotic agent; Z88.8 Allergy status to other drugs, medicaments and biological substances
CPT/HCPCS: 36415; 71045; 80048; 80053; 80061; 80069; 80307; 81001; 83036; 83690; 83735; 83880; 84100; 84443; 84484; 85025; 85610; 85730; 87081; 93005; 93306; 96372; 96374; 99291; J0171; J0461; J1643; J1644; J1815; J2250; J2310; J2371; J3010; J3490; Q5105; A9270; J2305

== ENCOUNTER 2024-10-14 06:33 | Inpatient (IN) | payer MEDICARE, MEDICAID, SELFPAY ==
[2024-10-14] VITALS (40 sets, daily range): BP systolic 92–163; BP diastolic 57–96; PULSE 75–129; RESP 14–24; TEMP 36.7–37; O2SAT 90–99; BMI 32.8
--- NOTE | 2024-10-14 06:51 | XR_ITS ---
Examination: AP chest single view Technique one AP portable upright chest single view Date and time: October 14, 2024, 0657 hours Comparison July 19, 2024 INDICATIONS: Chest pain shortness of breath today. FINDINGS: Mild heart failure Mild enlargement cardiac contour. CABG. Cardiac leads satisfactory position. Prominent vascular congestion with bilateral septal edema IMPRESSION: Mild CHF
--- NOTE | 2024-10-14 06:56 | PD.EDCHEST ---
ED Chest Pain RME/HPI General Chief Complaint: Chest Pain Stated Complaint: CHEST PAIN Time Seen by Provider: 10/14/24 06:56 Arrival date/time: 10/14/24 06:33 Limitations: no limitations RME / HPI RME / HPI narrative: 69 year old male with history of CAD status post PCI, status post CABG 2011, hypertension, diabetes, ESRD on HD M/W/F, DVT and PE, on Eliquis and Plavix, presents to the ED BIBA from home for evaluation of chest pain. States he initially called 911 for weakness, nausea, and vomiting. However, en route to ED developed severe left sided chest pain, described as sharp pressure in sensation. Additionally complained of pain to his lower back. States he had a peripheral angioplasty performed by his stock parts fabricator Dr. Matthews 3 days ago Thursday and missed his dialysis treatment Thursday. Denies feeling short of breath. Denies fevers, chills, abdominal pain, diarrhea. Related Data Home Medications ?Medication ?Instructions ?Recorded ?Confirmed allopurinol 300 mg tablet 300 mg PO QDAY 08/03/17 07/20/24 citalopram 20 mg tablet 20 mg PO HS 08/03/17 07/20/24 nitroglycerin 0.4 mg sublingual 0.4 mg buccal PRN PRN Chest Pain 11/25/17 07/20/24 tablet (Nitrostat) furosemide 20 mg tablet 40 mg PO BID 12/24/18 07/20/24 vitamin B complex-vitamin C-folic 1 tab PO DAILY 12/24/18 07/20/24 acid 0.8 mg tablet (Skylar-Edgardo) atorvastatin 80 mg tablet 80 mg PO QPM 08/17/19 07/20/24 hydrocodone 7.5 mg-acetaminophen 1 tab PO BID PRN Pain 08/17/19 07/20/24 325 mg tablet calcium acetate(phosphat bind) 667 667 mg PO TID 09/29/22 09/29/22 mg capsule carvedilol 3.125 mg tablet 3.125 mg PO BID 09/29/22 07/20/24 lisinopril 5 mg tablet 5 mg PO QDAY 09/29/22 07/20/24 albuterol sulfate 90 mcg/actuation 2 puff inhalation .[id number] PRN 07/20/24 07/20/24 aerosol inhaler shortness of breath or wheezing apixaban 2.5 mg tablet (Eliquis) 2.5 mg PO BID 07/20/24 07/20/24 gabapentin 300 mg capsule 300 mg PO HS 07/20/24 07/20/24 glipizide 5 mg tablet 2.5 mg PO DAILY 07/20/24 07/20/24 metoclopramide HCl 5 mg tablet 5 mg PO BID PRN nausea and vomiting 07/20/24 07/20/24 pantoprazole 40 mg tablet,delayed 40 mg PO BID 07/20/24 07/20/24 release Previous Rx's ?Medication ?Instructions ?Recorded clopidogrel 75 mg tablet 75 mg PO QDAY #0 tabs 12/02/17 ondansetron 8 mg disintegrating 8 mg PO Q12H PRN nausea and 10/02/22 tablet vomiting #30 tabs Allergies Allergy/AdvReac Type Severity Reaction Status Date / Time codeine Allergy Severe Rash Verified 09/30/22 19:16 loratadine Allergy Severe SEVERE Verified 09/30/22 19:16 VOMITING naproxen sodium Allergy Severe RASH AND Verified 09/30/22 19:16 SWELLING trazodone Allergy Severe ANAPHALACTIC Verified 09/30/22 19:16 REACTION Review of Systems Review of Systems Systems Reviewed: All systems reviewed, normal except as documented Past Medical History Past Medical History CARDIAC: Positive Cardiac Disorders, Myocardial Infarction, Angina, Coronary Artery Disease, Atherosclerotic Heart Disease, Hypercholesterolemia, Congestive Heart Failure, Edema, Deep Vein Thrombosis, Hypertension and Hypotension RESPIRATORY: Positive Bronchitis, Pneumonia and Pulmonary Embolism GASTROINTESTINAL: Positive Gastrointestinal Disorders and Obesity GENITOURINARY: Positive Genitourinary Disorders, Renal Disease, Kidney Stones and Dialysis (MWF) MUSCULOSKELETAL: Positive Musculoskeletal Disorders, Arthritis, Gout and Fractures (T 12) ENDOCRINE: Positive Endocrine Disorders and Diabetes Mellitus Type 2 HEMATOLOGIC: Positive Blood Disorders, Anemia and Clotting Problems PSYCHO/SOCIAL: Positive Recreational Drug Use (Marijuana), Depression and Behavior Problems OTHER HISTORY: Positive Hospitalization, Falls and Chicken Pox Family History FAMILY HISTORY: Positive Family Cancer Surgical History SURGICAL: Positive Cardiac Surgery, Open Heart Surgery, Coronary Artery Bypass Graft, Coronary Stent, Cardiac Catheterization, Angiogram, Auto Implanted Cardiovert Defib and Tonsillectomy Social History SMOKING STATUS: Former smoker SECOND HAND EXPOSURE: No SUBSTANCE USE: marijuana OCCUPATION: Denies any alcohol abuse. States that he is an ex-smoker. ED Exam General Limitations: Present no limitations General appearance: Present alert and in no apparent distress Head Head exam: Present atraumatic, normocephalic and normal inspection Eye Eye exam: Present normal appearance, PERRL and EOMI ENT ENT exam: Present normal exam, normal oropharynx and mucous membranes moist Neck Neck exam: Present normal inspection, full ROM and trachea midline Chest Chest inspection: Present normal inspection and symmetric chest wall rise Respiratory Respiratory exam: Present normal lung sounds bilaterally Cardiovascular Cardiovascular exam: Present regular rate, normal rhythm and normal heart sounds Abdominal Exam Abdominal exam: Present soft and normal bowel sounds Extremities Exam Extremities exam: Present normal inspection and full ROM Back Exam Back exam: Present normal inspection and full ROM Neurological Exam Neurological exam: Present alert, oriented X3 and CN II-XII intact Psychiatric Psychiatric exam: Present normal affect and normal mood Skin Skin exam: Present warm, dry, intact and normal color Course Quality Measures none Orders Category Date Time Status Admit to Inpatient Status Routine Admission 10/14/24 09:58 Active Patient Condition Routine Admission 10/14/24 10:03 Ordered Aspiration precautions NOW Care 10/14/24 10:04 Active Bedrest ONCE Care 10/14/24 09:41 Active Bedside Blood Glucose NOW Care 10/14/24 09:42 Active Bedside Blood Glucose Q6HR Care 10/14/24 10:09 Active Bleeding Precautions NEEDED Care 10/14/24 09:41 Active Student STAT Care 10/14/24 06:51 Completed Continuous Pulse Ox (IR/CCL) NOW Care 10/14/24 09:42 Active Continuous Pulse Oximetry NOW Care 10/14/24 10:03 Active Continuous Pulse Oximetry ONCE Care 10/14/24 06:51 Completed EKG (ED ONLY) *Do not use* NOW Care 10/14/24 06:44 Completed Encourage Fluid Intake NOW Care 10/14/24 09:41 Active Insert IV STAT Care 10/14/24 06:51 Completed Intake and Output Routine Care 10/14/24 09:41 Ordered Miscellaneous Nursing Order NOW Care 10/14/24 10:03 Active NPO NOW Care 10/14/24 10:04 Active Notify provider NEEDED Care 10/14/24 10:03 Active Obtain weight daily Care 10/14/24 10:04 Active Strict Intake and Output Routine Care 10/14/24 10:04 Ordered Urinary Catheter STAT Care 10/14/24 06:51 Completed Vital Signs, Non-Routine NOW Care 10/14/24 09:45 Ordered Consult to Cardiology Stat Cons 10/14/24 06:52 Ordered Consult to Nephrology Stat Cons 10/14/24 10:01 Ordered Diet NPO (NOW) Diet 10/14/24 10:04 Active CCL heart cath LT ventricle Stat Exams 10/14/24 Ordered EKG (ED Only) Stat Exams 10/14/24 06:44 Ordered XR chest 1V portable Stat Exams 10/14/24 06:51 Completed B-Type Natriuretic Peptide Stat Lab 10/14/24 06:52 Completed Basic Metabolic Panel AM DRAW Lab 10/15/24 05:00 Ordered Basic Metabolic Panel AM DRAW Lab 10/16/24 05:00 Ordered Basic Metabolic Panel AM DRAW Lab 10/17/24 05:00 Ordered Basic Metabolic Panel AM DRAW Lab 10/18/24 05:00 Ordered Basic Metabolic Panel AM DRAW Lab 10/19/24 05:00 Ordered Basic Metabolic Panel AM DRAW Lab 10/20/24 05:00 Ordered Basic Metabolic Panel AM DRAW Lab 10/21/24 05:00 Ordered CBC AM DRAW Lab 10/15/24 05:00 Ordered CBC AM DRAW Lab 10/16/24 05:00 Ordered CBC AM DRAW Lab 10/17/24 05:00 Ordered CBC AM DRAW Lab 10/18/24 05:00 Ordered CBC AM DRAW Lab 10/19/24 05:00 Ordered CBC AM DRAW Lab 10/20/24 05:00 Ordered CBC AM DRAW Lab 10/21/24 05:00 Ordered CBC Stat Lab 10/14/24 06:52 Completed Comprehensive Metabolic Panel Stat Lab 10/14/24 06:52 Completed Glycohemoglobin w (eAG) AM DRAW Lab 10/15/24 05:00 Ordered Lipase Stat Lab 10/14/24 06:52 Completed Lipid Panel AM DRAW Lab 10/15/24 05:00 Ordered Magnesium AM DRAW Lab 10/15/24 05:00 Ordered Magnesium AM DRAW Lab 10/16/24 05:00 Ordered Magnesium AM DRAW Lab 10/17/24 05:00 Ordered Magnesium AM DRAW Lab 10/18/24 05:00 Ordered Magnesium AM DRAW Lab 10/19/24 05:00 Ordered Magnesium AM DRAW Lab 10/20/24 05:00 Ordered Magnesium AM DRAW Lab 10/21/24 05:00 Ordered Magnesium Stat Lab 10/14/24 06:52 Completed Partial Thromboplastin Time AM DRAW Lab 10/15/24 05:00 Ordered Partial Thromboplastin Time Stat Lab 10/14/24 09:52 Completed Phosphorous AM DRAW Lab 10/15/24 05:00 Ordered Phosphorous AM DRAW Lab 10/16/24 05:00 Ordered Phosphorous AM DRAW Lab 10/17/24 05:00 Ordered Prothrombin Time with INR AM DRAW Lab 10/15/24 05:00 Ordered Prothrombin Time with INR Stat Lab 10/14/24 09:52 Completed Thyroid Stimulating Hormone AM DRAW Lab 10/15/24 05:00 Ordered Troponin I Stat Lab 10/14/24 06:52 Completed Acetaminophen Tab [Tylenol Tab] Med 10/14/24 10:03 Active 650 mg PO Q6H PRN Aspirin Chew Med 10/14/24 07:31 Discontinued 324 mg .ROUTE .STK-MED ONE Aspirin Chew Med 10/14/24 09:43 Discontinued 324 mg PO X1 ONE Atropine Inj Vial Med 10/14/24 07:29 Discontinued 1 mg .ROUTE .STK-MED ONE Bivalirudin Inj [Angiomax Inj] Med 10/14/24 07:31 Discontinued 250 mg IV .STK-MED ONE Clopidogrel [Plavix] Med 10/14/24 07:31 Discontinued 600 mg .ROUTE .STK-MED ONE Clopidogrel [Plavix] Med 10/14/24 09:41 Discontinued 600 mg PO X1 ONE Clopidogrel [Plavix] Med 10/14/24 10:00 Discontinued 600 mg PO X1 ONE Dextrose 50% Syr [D50w Syringe Abboject] Med 10/14/24 10:09 Active 25 ml IV Q15MIN PRN Dextrose 50% Syr [D50w Syringe Abboject] Med 10/14/24 10:09 Active 50 ml IV Q15MIN PRN EPINEPHrine Inj Abboject Med 10/14/24 07:30 Discontinued 1 mg .ROUTE .STK-MED ONE Furosemide Inj [Lasix Inj] Med 10/14/24 08:44 Discontinued 40 mg .ROUTE .STK-MED ONE Glucagon Inj Med 10/14/24 10:09 Active 1 mg IM Q15MIN PRN Heparin* 1000 UNITS/ML- 10 ML [Heparin 1000 UNITS/ML- Med 10/14/24 07:30 Discontinued 10 ML] 20,000 unit .ROUTE .STK-MED ONE INSULIN LISPRO (AdmeLOG) [HumaLOG] Med 10/14/24 12:00 Active See Protocol SC Q6HR LORazepam [Ativan Inj] Med 10/14/24 11:50 Discontinued 1 mg IVP X1 ONE Lidocaine 1% Pf 30 ml [Xylocaine 1% Pf 30 ml] Med 10/14/24 07:29 Discontinued 30 ml .ROUTE .STK-MED ONE Midazolam Inj [Versed Inj] Med 10/14/24 07:29 Discontinued 2 mg .ROUTE .STK-MED ONE Morphine Inj Med 10/14/24 07:32 Discontinued 10 mg .ROUTE .STK-MED ONE NALOXONE INJ (Vial) [Narcan Inj (Vial)] Med 10/14/24 07:29 Discontinued 0.4 mg .ROUTE .STK-MED ONE Nitroglycerin Oint 2% [Nitro-paste Oint 2%] Med 10/14/24 06:56 Discontinued 1 inch TOP X1 ONE Nitroglycerin [Nitrostat 1/150] Med 10/14/24 06:56 Active 0.4 mg SL Q5MIN PRN Nitroglycerin/D5w 50 MG IVPB [Nitroglycerin in D5w Ivpb Med 10/14/24 07:30 Discontinued ] 50 mg in 250 ml .ROUTE .STK-MED Ondansetron Inj [Zofran Inj] Med 10/14/24 07:34 Discontinued 4 mg .ROUTE .STK-MED ONE Ondansetron Inj [Zofran Inj] Med 10/14/24 07:49 Discontinued 4 mg .ROUTE .STK-MED ONE Ondansetron Inj [Zofran Inj] Med 10/14/24 06:51 Active 4 mg IVP Q1HR PRN PHENYLEPHRINE INJ in NS [Ravin-synephrine Inj/Ns] Med 10/14/24 07:29 Discontinued 1,000 mcg .ROUTE .STK-MED ONE Pantoprazole Inj [Protonix Inj] Med 10/15/24 09:00 Active 40 mg IVP QDAY Promethazine Inj [Phenergan Inj] Med 10/14/24 08:30 Discontinued 25 mg .ROUTE .STK-MED ONE Senna [Senokot] Med 10/15/24 09:00 Active 1 tab PO QDAY Sterile Water 10 ml Med 10/14/24 07:31 Discontinued .ROUTE .STK-MED Verapamil Inj [Calan Inj] Med 10/14/24 07:29 Discontinued 5 mg .ROUTE .STK-MED ONE fentaNYL INJ [Sublimaze Inj] Med 10/14/24 07:29 Discontinued 100 mcg .ROUTE .STK-MED ONE fentaNYL INJ [Sublimaze Inj] Med 10/14/24 06:58 Discontinued 50 mcg IVP X1 ONE flumazeniL [Romazicon Inj] Med 10/14/24 07:29 Discontinued 1 mg .ROUTE .STK-MED ONE Code Status Routine Oth 10/14/24 10:03 Ordered Late Tray Request Routine Oth 10/14/24 09:45 Active Oxygen Delivery NOW RT 10/14/24 06:51 Completed Oxygen Delivery PRN RT 10/14/24 10:03 Active Vital Signs Vital signs: Vital Signs Temperature 98.6 F 10/14/24 06:39 Pulse Rate 117 H 10/14/24 06:39 Respiratory Rate 18 10/14/24 06:39 Blood Pressure 163/96 H 10/14/24 06:39 Pulse Oximetry (%) 91 L 10/14/24 06:39 Oxygen Delivery Method Room Air 10/14/24 06:39 Pulse ox is 91% on room air which is hypoxic. Chest Pain MDM Narrative MDM Narrative:: Kinga Rahman am scribing for and in the presence of Dr. Darling. 69 year old male with CAD (s/p PCI, CABG 2011), ESRD on HD M/W/F, HTN, DM, DVT/PE (on Eliquis and Plavix), presents with acute left-sided chest pain en route to ED after initially calling EMS for weakness, nausea, and vomiting. Also reports lower back pain. Recently had peripheral angioplasty 3 days ago and missed HD on Thursday. EKG shows sinus tachycardia, left axis deviation, ST elevation in V1-V2 with lateral reciprocal changes that is new compared to 07/25/24, concerning for STEMI vs LVH. Facility Manager Histology Dr. Frances reviewed EKG and states it appears to be consistent with STEMI. However, patient had a recent negative angiogram ~1 month ago which makes acute occlusion less likely but not excluded. Plan includes cardiology consultation, labs, consider emergent cath if indicated, resume HD. Patient is already on dual antiplatelets and will be started on Nitro. Patient data External records reviewed:: [facility] previous records (I reviewed admission from 07/19/2024 through 07/22/2024) and EMS form Clinical information provided by:: patient and EMS Social determinants that could affect healthcare access:: none Patient has the following chronic illnesses:: CAD status post PCI, status post CABG 2011, hypertension, diabetes, ESRD on HD M/W/F, DVT and PE, on Eliquis and Plavix, How is presenting disease/condition affected by chronic disease/condition?: exacerbated by Evaluation data The following diagnostics were reviewed and interpreted by me:: lab results and EKG tracing(s) (10/14/2024. Sinus tachycardia, left axis deviation, ST elevation in V1 and very mild ST elevation in V2 with reciprocal change in the lateral leads, these changes could be due to a STEMI vs LVH but with the story of the patient we have to consider a STEMI, new change from EKG on 07/25/2024. ) Lab and/or radiology exams considered but not ordered:: None Interpretation Summary: Ordering Physician: Obdulia Garcia MD Date of Service: 10/14/24 Procedure(s): XR chest 1V portable Accession Number(s): [id number] cc: Obdulia Garcia MD; Jony Lamb MD; NO PRIMARY/FAMILY,PHYSICIAN~ Examination: AP chest single view Technique one AP portable upright chest single view Date and time: October 14, 2024, 0657 hours Comparison July 19, 2024 INDICATIONS: Chest pain shortness of breath today. FINDINGS: Mild heart failure Mild enlargement cardiac contour. CABG. Cardiac leads satisfactory position. Prominent vascular congestion with bilateral septal edema IMPRESSION: Mild CHF Dictated By: Jony Lamb MD Signed By: <Electronically signed by Jony Lamb MD in OV> 10/14/24 0904 Medications / Prescriptions Medications or Prescriptions considered but not ordered:: None Medication administrations:: Medication Administration History Acetaminophen (Acetaminophen 325 Mg Tablet) 650 mg PO Q6H PRN PRN Reason: Pain (1-3) & Fever >100.4 Stop: 11/13/24 10:02 Dextrose (Dextrose 50%-Water Inj 50 Ml Syringe) 25 ml IV Q15MIN PRN PRN Reason: BG 50-70 responsive npo pt Stop: 11/13/24 10:08 Dextrose (Dextrose 50%-Water Inj 50 Ml Syringe) 50 ml IV Q15MIN PRN PRN Reason: BG <50 OR BG <70 & pt unresponsive Stop: 11/13/24 10:08 Glucagon (Glucagon Inj 1 Mg Vial) 1 mg IM Q15MIN PRN PRN Reason: BG <70, and no IV access Insulin Human Lispro (Insulin Lispro (Admelog) 1 Unit/0.01 Ml Unit) 0 unit SC Q6HR KATHERINE; Protocol Stop: 11/13/24 11:59 Nitroglycerin (Nitroglycerin 0.4 Mg Subl Btl #25) 0.4 mg SL Q5MIN PRN PRN Reason: CHEST PAIN Ondansetron HCl (Ondansetron Inj 2 Mg/Ml Inj 2 Ml) 4 mg IVP Q1HR PRN PRN Reason: PERSISTENT NAUSEA OR VOMITING Last Admin: 10/14/24 07:11 Dose: 4 mg Documented By: FRANCIS Pantoprazole Sodium (Pantoprazole Inj 40 Mg Vial) 40 mg IVP QDAY KATHERINE Stop: 11/14/24 08:59 Sennosides (Senna Tablet) 1 tab PO QDAY KATHERINE; Protocol Stop: 11/14/24 08:59 Discontinued Medications Aspirin (Aspirin 81 Mg Chew) Confirm Administered Dose 324 mg .ROUTE .STK-MED ONE Stop: 10/14/24 07:32 Last Admin: 10/14/24 09:48 Dose: Not Given Documented By: Non-Admin Reason: Duplicate Medication on eMAR Aspirin (Aspirin 81 Mg Chew) 324 mg PO X1 ONE Stop: 10/14/24 09:44 Last Admin: 10/14/24 10:04 Dose: 324 mg Documented By: FLORENTINO Atropine Sulfate (Atropine Sulf Inj 1 Mg/Ml Vial) Confirm Administered Dose 1 mg .ROUTE .STK-MED ONE Stop: 10/14/24 07:30 Last Admin: 10/14/24 09:47 Dose: Not Given Documented By: Non-Admin Reason: Duplicate Medication on eMAR Bivalirudin (Bivalirudin Inj 250 Mg Vial) Confirm Administered Dose 250 mg IV .STK-MED ONE Stop: 10/14/24 07:32 Last Admin: 10/14/24 09:48 Dose: Not Given Documented By: Non-Admin Reason: Duplicate Medication on eMAR Clopidogrel Bisulfate (Clopidogrel Bisulfate 75 Mg Tablet) Confirm Administered Dose 600 mg .ROUTE .STK-MED ONE Stop: 10/14/24 07:32 Last Admin: 10/14/24 09:48 Dose: Not Given Documented By: Non-Admin Reason: Duplicate Medication on eMAR Clopidogrel Bisulfate (Clopidogrel Bisulfate 300 Mg Tablet) 600 mg PO X1 ONE Stop: 10/14/24 09:42 Clopidogrel Bisulfate (Clopidogrel Bisulfate 75 Mg Tablet) 600 mg PO X1 ONE Stop: 10/14/24 10:01 Last Admin: 10/14/24 10:05 Dose: 600 mg Documented By: FLORENTINO Epinephrine HCl (Epinephrine Inj 0.1 Mg/Ml Syringe 10ml) Confirm Administered Dose 1 mg .ROUTE .STK-MED ONE Stop: 10/14/24 07:31 Last Admin: 10/14/24 09:47 Dose: Not Given Documented By: Non-Admin Reason: Duplicate Medication on eMAR Fentanyl Citrate (Fentanyl Cit Inj 50 Mcg/Ml Amp 2ml) 50 mcg IVP X1 ONE Stop: 10/14/24 06:59 Last Admin: 10/14/24 07:10 Dose: 50 mcg Documented By: FRANCIS Fentanyl Citrate (Fentanyl Cit Inj 50 Mcg/Ml Amp 2ml) Confirm Administered Dose 100 mcg .ROUTE .STK-MED ONE Stop: 10/14/24 07:30 Last Admin: 10/14/24 09:47 Dose: Not Given Documented By: Non-Admin Reason: Duplicate Medication on eMAR Flumazenil (Flumazenil Inj 0.1 Mg/Ml Vial 10 Ml) Confirm Administered Dose 1 mg .ROUTE .STK-MED ONE Stop: 10/14/24 07:30 Last Admin: 10/14/24 09:47 Dose: Not Given Documented By: Non-Admin Reason: Duplicate Medication on eMAR Furosemide (Furosemide Inj 10 Mg/Ml 4ml Vial) Confirm Administered Dose 40 mg .ROUTE .STK-MED ONE Stop: 10/14/24 08:45 Last Admin: 10/14/24 09:49 Dose: Not Given Documented By: Non-Admin Reason: Duplicate Medication on eMAR Heparin Sodium (Porcine) (Heparin Sod Inj 1000 Unit/Ml Vial 10 Ml) Confirm Administered Dose 20,000 unit .ROUTE .STK-MED ONE Stop: 10/14/24 07:31 Last Admin: 10/14/24 09:48 Dose: Not Given Documented By: Non-Admin Reason: Duplicate Medication on eMAR Nitroglycerin/Dextrose (Nitroglycerin In D5w Ivpb) Confirm Administered Dose 50 mg in 250 mls @ ud .ROUTE .STK-MED ONE Stop: 10/14/24 07:31 Last Admin: 10/14/24 09:48 Dose: Not Given Documented By: Non-Admin Reason: Duplicate Medication on eMAR Sterile Water (Sterile Water) Confirm Administered Dose 10 mls @ ud .ROUTE .STK-MED ONE Stop: 10/14/24 07:32 Last Admin: 10/14/24 09:48 Dose: Not Given Documented By: Non-Admin Reason: Duplicate Medication on eMAR Lidocaine HCl (Lidocaine Inj Pf 1% 30 Ml Vial) Confirm Administered Dose 30 ml .ROUTE .STK-MED ONE Stop: 10/14/24 07:30 Last Admin: 10/14/24 09:47 Dose: Not Given Documented By: Non-Admin Reason: Duplicate Medication on eMAR Lorazepam (Lorazepam 2 Mg/Ml Vial) 1 mg IVP X1 ONE Stop: 10/14/24 11:51 Midazolam HCl (Midazolam Inj 1 Mg/Ml Vial 2 Ml) Confirm Administered Dose 2 mg .ROUTE .STK-MED ONE Stop: 10/14/24 07:30 Last Admin: 10/14/24 09:47 Dose: Not Given Documented By: Non-Admin Reason: Duplicate Medication on eMAR Morphine Sulfate (Morphine Sulf Inj 10 Mg/Ml Vial) Confirm Administered Dose 10 mg .ROUTE .STK-MED ONE Stop: 10/14/24 07:33 Last Admin: 10/14/24 09:48 Dose: Not Given Documented By: Non-Admin Reason: Duplicate Medication on eMAR Naloxone HCl (Naloxone Inj 0.4 Mg/Ml Vial) Confirm Administered Dose 0.4 mg .ROUTE .STK-MED ONE Stop: 10/14/24 07:30 Last Admin: 10/14/24 09:47 Dose: Not Given Documented By: Non-Admin Reason: Duplicate Medication on eMAR Nitroglycerin (Nitroglycerin Oint 2% 1 Inch Packet) 1 inch TOP X1 ONE Stop: 10/14/24 06:57 Last Admin: 10/14/24 07:11 Dose: 1 inch Documented By: FRANCIS Ondansetron HCl (Ondansetron Inj 2 Mg/Ml Inj 2 Ml) Confirm Administered Dose 4 mg .ROUTE .STK-MED ONE Stop: 10/14/24 07:35 Last Admin: 10/14/24 09:48 Dose: Not Given Documented By: Non-Admin Reason: Duplicate Medication on eMAR Ondansetron HCl (Ondansetron Inj 2 Mg/Ml Inj 2 Ml) Confirm Administered Dose 4 mg .ROUTE .STK-MED ONE Stop: 10/14/24 07:50 Last Admin: 10/14/24 09:49 Dose: Not Given Documented By: Non-Admin Reason: Duplicate Medication on eMAR Phenylephrine HCl (Phenylephrine Inj In Ns 100 Mcg/Ml 10 Ml Syringe) Confirm Administered Dose 1,000 mcg .ROUTE .STK-MED ONE Stop: 10/14/24 07:30 Last Admin: 10/14/24 09:47 Dose: Not Given Documented By: Non-Admin Reason: Duplicate Medication on eMAR Promethazine HCl (Promethazine Inj 25 Mg/Ml Vial) Confirm Administered Dose 25 mg .ROUTE .STK-MED ONE Stop: 10/14/24 08:31 Verapamil HCl (Verapamil Inj 2.5 Mg/Ml Vial 2 Ml) Confirm Administered Dose 5 mg .ROUTE .STK-MED ONE Stop: 10/14/24 07:30 Last Admin: 10/14/24 09:47 Dose: Not Given Documented By: Non-Admin Reason: Duplicate Medication on eMAR See above Consultations Consultation(s) initiated? (list below): Yes Consultation #1 (Physician, Specialty, Details): I spoke with stock parts fabricator Dr. Frances. Discussed patients PMHx, HPI, ED course, exam findings, and EKG results. Reports it appears to be a STEMI and will take to cardiac cath technician. Heart alert activated. Time: 06:52 Consultation #2 (Physician, Specialty, Details): I spoke with patients support team assoc Dr. Kaiser. Advised he missed his dialysis Thursday and Today (Thursday). States if the patient does not have a STEMI or ischemia, he can be dialyzed today. Time: 07:17 Consultation #3 (Physician, Specialty, Details): I spoke with chyron operator Dr. Giraldo. Discussed patients PMHx, HPI, ED course, exam findings, lab results. The chyron operator accepts for admission. Time: 07:24 Diagnosis Chest Pain Differential Diagnosis: stable angina, atypical chest pain, st elevation myocardial infarction, costochondritis, chest pain and biliary colic Most likely diagnosis given after review of the tests above:: STEMI Admission Indicated Admission indicated?: indicated Admission Request Was there a request for admission?: Yes Admission Attestation Admission request attestation: Discussed case with [] from Hospitalist service regarding admission. Discussed patients ED course, exam findings, labs, and radiology results. The Hospitalist [agrees,declines] to accept the patient for admission. Disposition Plan Disposition Plan: Admit Critical Care Time Critical Care Time Critical Care Time: Yes Total Critical Care Time (min.): 60 Attestation: The high probability of sudden, clinically significant deterioration in the patient's condition required the highest level of my preparedness to intervene urgently. The services I provided to this patient were to treat and/or prevent clinically significant deterioration. Services included the following: chart data review, reviewing nursing notes and/or old charts, documentation time, performance consultant collaboration regarding findings and treatment options, medication orders and management, direct patient care, vital sign assessments and ordering, interpreting and reviewing diagnostic studies and lab tests. Aggregate critical care time includes only time during which I was engaged in work directly related to the patient's care, as described above, whether at bedside or elsewhere in the Emergency Department. It did not include time spent performing other reported procedures or the services of residents, students, nurses or physician assistants. Discharge Plan Plan Patient Disposition: Admit Acute Care w/in Hospital Discharge Disposition comment: ICU w/ cardiology consulting Problem List Clinical Impression: ST elevation (STEMI) myocardial infarction
[2024-10-14 07:10] LABS: Basophils # (Auto) 0.1 Thou/mm3 (0.0-0.2); Basophils % (Auto) 1 % (0-2.5); Eosinophils % (Auto) 0 % (0-10); Hematocrit 30.7 % (41.0-53.0); Hemoglobin 10.5 g/dL (13.5-16.0); Immature Granulocytes % (Auto) 0 % (0-0); Immature Granulocytes Auto 0.04 Thou/mm3 (0.00-0.00); Lymphocytes % (Auto) 9 % (10-50); Mean Corpuscular HGB Conc 34.2 g/dl (31.0-37.0); Mean Corpuscular Volume 97 fL (80-100); Monocytes # (Auto) 0.7 Thou/mm3 (0.0-0.8); Monocytes % (Auto) 7 % (0-12); Neutrophils # (Auto) 8.7 Thou/mm3 (1.8-7.7); Neutrophils % (Auto) 83 % (37-80); Nucleated Red Blood Cell % 0 /100 WBC (0); Platelet Count 118 Thou/mm3 (140-440); RDW Standard Deviation 54.6 fL (35.1-43.9); Red Blood Count 3.18 Miln/mm3 (4.50-5.90); White Blood Count 10.5 Thou/mm3 (3.8-10.6)
[2024-10-14] MEDS: fentaNYL CIT INJ 50 mCg/ML AMP 2ML IVP (07:10)
[2024-10-14] MEDS: NITROGLYCERIN OINT 2% 1 INCH PACKET TOP (07:11)
[2024-10-14] MEDS: ONDANSETRON INJ 2 MG/ML INJ 2 ML 4 MG IVP (07:11)
--- NOTE | 2024-10-14 07:22 | PC.NURSE ---
Alis from director of cath lab received report for this patient. Patient will go to director of cath lab with Dr. Frances. Alis aware patient last took eliquis this morning. Patient taken to director of cath lab via tani
[2024-10-14 07:43] LABS: Alanine Aminotransferase < 7 U/L (10-49); Albumin, Serum 4.5 gm/dL (3.4-4.8); Albumin/Globulin Ratio 1.5 (1.2-2.2); Alkaline Phosphatase 93 U/L (46-116); Anion Gap 22 (7-16); Aspartate Amino Transferase 27 U/L (0-34); BUN/Creatinine Ratio 6 Ratio (12-20); Bilirubin,Total 0.6 mg/dL (0.3-1.2); Blood Urea Nitrogen 79 mg/dL (9-23); Calcium 9.8 mg/dL (8.3-10.6); Calcium (Corrected) 9.8 mg/dL (8.5-10.1); Carbon Dioxide 24.2 mMol/L (20.0-31.0); Chloride 94 mMol/L (98-107); Estimated Creatinine Clearance 6.8 mL/min (>60); Globulin 3.1 gm/dL (2.3-3.5); Glucose 277 mg/dL (74-106); Lipase 63 U/L (12-53); Magnesium 1.9 mg/dL (1.6-2.6); Osmolality,Calculated 313 (275-295); Potassium 5.1 mMol/L (3.4-5.1); Sodium 140 mMol/L (136-145); Total Protein 7.6 gm/dL (5.7-8.2); eGFR 4 See Note
[2024-10-14 07:44] LABS: Creatinine (Component) 12.9 mg/dL (0.6-1.3)
[2024-10-14 07:47] LABS: Troponin I 0.382 ng/mL (0.0-0.045)
[2024-10-14 07:55] LABS: B-Type Natriuretic Peptide 380 pg/mL (0-100)
[2024-10-14] MEDS: ASPIRIN 81 MG CHEW 324 MG PO (10:04)
[2024-10-14] MEDS: CLOPIDOGREL BISULFATE 75 MG TABLET 600 MG PO (10:05)
--- NOTE | 2024-10-14 10:28 | PD.RESCONSUL ---
HPI Data of Consult Requesting Physician: Joanie Frances MD Attending Provider: Joanie Frances MD Primary Care Provider: Physician No Primary/Family Consult Narrative Reason for consult: ESRD History of present illness: Patient seen in recovery room [employer], in no acute distress, currently drowsy following sedation, but easily arousable able to provide limited history. present at the bedside, contributed to H&P. The patient is a 69-year-old male with past medical history of coronary artery disease status post CABG, peripheral arterial disease s/p angioplasty, CHF status post pacemaker, ESRD on hemodialysis M/W/F, who presented to the emergency room today after he syncopal episode. Per , patient had missed dialysis sessions due to appointment in [place], and was taking baking soda and water to help with heartburn for the past few days. This morning patient went to the restroom, and as soon as he walked out of the restroom he collapsed on the floor, per patient but was confused, she was able to get him out out of the restroom by helping him crawl. Denied hitting his head, after the syncopal episode. And endorsed 1 episode of vomiting. Also endorsed chest discomfort after syncopal episode. immediately called the ambulance, in the emergency room, patient was found to have ST elevation in chest leads, heart alert was initiated and high school art teacher Dr. Frances took the patient to [facility]. Patient was found to have blockage in one of the graft vessels, PCI to SVG was done. Of note, patient had recent angiogram for lower extremity occlusion in [place] 3 days ago by his high school art teacher Dr. Matthews. Patient had missed 2 hemodialysis sessions on Thursday and today. cc:: cc: Joanie Frances MD Review of Systems Review of Systems Systems Reviewed: All systems reviewed, normal except as documented Past Medical History Past Medical History NEUROLOGIC: Negative Neurological Disorders, Cerebrovascular Accident, Transient Ischemic Attacks (TIA), Dementia, Alzheimer's Disease, Parkinson's Disease, Brain Tumor, Meningitis, Seizures, Epilepsy, Multiple Sclerosis, Cerebral Palsy, Amyotrophic Lateral Sclerosis (ALS/Jaja Gehrig's), Guillain-Winfield Syndrome, Spina Bifida, Paralysis, Peripheral Neuropathy, Peña's Palsy, Subdural Hematoma, Migraine, Head Trauma, Spinal Cord Injury or Traumatic Brain Injury CARDIAC: Positive Cardiac Disorders, Myocardial Infarction, Angina, Coronary Artery Disease, Atherosclerotic Heart Disease, Hypercholesterolemia, Congestive Heart Failure, Edema, Deep Vein Thrombosis, Hypertension and Hypotension; Negative Cardiac Arrhythmia, Atrial Fibrillation, Heart Murmur, Peripheral Vascular Disease, Aneurysm, Congenital Heart Disease, Valvular Heart Disease, Rheumatic Fever, Cardiomyopathy, Pericarditis, Cellulitis or Varicose Veins RESPIRATORY: Positive Bronchitis, Pneumonia and Pulmonary Embolism; Negative Chronic Obstructive Pulmonary Disease (COPD), Asthma, Emphysema, Pulmonary Fibrosis, Cystic Fibrosis, Tuberculosis, Pulmonary Edema or Sleep Apnea GASTROINTESTINAL: Positive Gastrointestinal Disorders and Obesity; Negative Hepatitis, Cirrhosis, Pancreatitis, Celiac Disease, Gall Bladder Disease, Gastrointestinal Bleed, Esophageal Varices, Everett's Esophagus, Colitis, Ulcerative Colitis, Diverticulitis, Diverticulosis, Ulcer, Colorectal Cancer, Irritable Bowel, Crohn's Disease, Obstructive Bowel, Hiatal Hernia, Hemorrhoids or Gastroesophageal Reflux Disease GENITOURINARY: Positive Genitourinary Disorders, Renal Disease, Kidney Stones and Dialysis (MWF); Negative Polycystic Kidney Disease, Neurogenic Bladder, Inguinal Hernia, Prostate Cancer or Benign Prostatic Hyperplasia REPRODUCTIVE: Negative Genital Herpes, Gonorrhea, Syphilis or Testicular Cancer MUSCULOSKELETAL: Positive Musculoskeletal Disorders, Arthritis, Gout and Fractures (T 12); Negative Muscular Dystrophy, Myasthenia Gravis, Marfan's Syndrome, Bone Cancer, Rheumatoid Arthritis, Osteoporosis, Degenerative Disk Disease, Scoliosis, Carpal Tunnel Syndrome, Fibromyalgia, Degenerative Joint Disease, Osteomyelitis or Poliovirus ENT: Negative Cataracts, Glaucoma, Blind, Retinal Detachment, Macular Degeneration, Ear Infection, Deafness, Head Trauma or Eye Prosthesis ENDOCRINE: Positive Endocrine Disorders and Diabetes Mellitus Type 2; Negative Diabetes Mellitus Type 1, Hypoglycemia, Boscobel's Syndrome, Juan's Disease, Hyperthyroidism, Hypothyroidism, Parathyroid Disease, Pituitary Disease, Systemic Lupus Erythematosus, Syndrome of Inappropriate Antidiuretic Hormone (SIADH), Adrenal Disease or Graves' Disease HEMATOLOGIC: Positive Blood Disorders, Anemia and Clotting Problems; Negative Leukemia, Hemophilia, Thalassemia or Sickle Cell Disease PSYCHO/SOCIAL: Positive Recreational Drug Use (Marijuana), Depression and Behavior Problems; Negative Psychiatric Problems, Schizophrenia, Bipolar Disorder, Anxiety, Self-Mutilation, Attention Deficit Disorder, Attention Deficit Hyperactivity Disorder, Post Traumatic Stress Disorder or Eating Disorder OTHER HISTORY: Positive Hospitalization, Falls and Chicken Pox; Negative Autoimmune Disease, Down Syndrome, Autism, Developmental Delay, Shingles, Blood Transfusions, Anesthesia Reactions, Organ Transplant, Chemotherapy, Radiation Therapy, Hyperbaric Therapy, MRSA, VRSA, Vancomycin-Resistant Enterococci, Human Immunodeficiency Virus (HIV), Measles, Mumps, Rubella (Mohawk Measles), Pertussis, Clostridium Difficile, Cancer, Colorectal Cancer, Lung Cancer, Prostate Cancer or Testicular Cancer Family History FAMILY HISTORY: Positive Family Cancer; Negative Family Psychiatric Problems, Family Respiratory Disorders, Family Cardiac Disorders, Family Gastrointestinal Problems, Family Surgery or Family Anesthesia Reaction Surgical History SURGICAL: Positive Cardiac Surgery, Open Heart Surgery, Coronary Artery Bypass Graft, Coronary Stent, Cardiac Catheterization, Angiogram, Auto Implanted Cardiovert Defib and Tonsillectomy; Negative Valve Replacement, Vascular Surgery, Pacemaker, Carotid Endarterectomy, Endocrine Surgery, Thyroidectomy, Ear Surgery, Tympanostomy Tube, Eye Surgery, Nose Surgery, Oral Surgery, Adenoidectomy, Cochlear Implant, Corneal Transplant, Throat Surgery, Abdominal Surgery, Tracheostomy, Gastric Bypass Surgery, Gastrostomy, Bowel Surgery, Nephrectomy, Transurethral Resection, Joint Replacement, Amputation, Open Reduction Internal Fixation, Arthroscopy, Neurologic Surgery, Brain Shunt, Vasectomy or Organ Transplant Social History SMOKING STATUS: Former smoker SECOND HAND EXPOSURE: No SUBSTANCE USE: marijuana OCCUPATION: Denies any alcohol abuse. States that he is an ex-smoker. Exam Vital Signs Temp Pulse Resp BP Pulse Ox O2 Del Method O2 Flow Rate 98.6 F 116 H 19 142/87 H 93 L Oxy Mask 15 10/14/24 06:39 10/14/24 10:15 10/14/24 10:15 10/14/24 10:15 10/14/24 10:15 10/14/24 10:15 10/14/24 10:15 Narrative Exam General: Patient seen in recovery room [employer], in no acute distress, currently drowsy following sedation, but easily arousable able to provide limited history. Skin: Intact, no cyanosis or edema noted. Nitropatch visible anterior chest. Midline sternotomy scar. HEENT: Atraumatic/normocephalic, JAELYN, neck supple Heart: RRR, S1 and S2 without clicks or murmurs Lungs: Basal crackles appreciated. Abdomen: Soft, nontender. Bowel sounds present . Vascular: Peripheral pulses palpable Neuro: No focal neurological deficits noted. Results Labs 10/14/24 06:52 10/14/24 06:52 Labs: Short CBC 10/14/24 Range/Units 06:52 WBC 10.5 (3.8-10.6) Thou/mm3 Hgb 10.5 L (13.5-16.0) g/dL Hct 30.7 L (41.0-53.0) % Plt Count 118 L (140-440) Thou/mm3 BMP 10/14/24 06:52 Sodium 140 Potassium 5.1 Chloride 94 L Carbon Dioxide 24.2 BUN 79 H Creatinine 12.9 H* Glucose 277 H Calcium 9.8 Cardiac Enzymes 10/14/24 Range/Units 06:52 Troponin I 0.382 H* (0.0-0.045) ng/mL Liver Function 10/14/24 Range/Units 06:52 Total Bilirubin 0.6 (0.3-1.2) mg/dL AST 27 (0-34) U/L ALT < 7 L (10-49) U/L Alkaline Phosphatase 93 (46-116) U/L Albumin 4.5 (3.4-4.8) gm/dL Quality Measures Quality Measures none Advance care planning discussed with:: patient Medications Home Medications and Allergies Home Medications ?Medication ?Instructions ?Recorded ?Confirmed ?Type allopurinol 300 mg tablet 300 mg PO QDAY 08/03/17 07/20/24 History citalopram 20 mg tablet 20 mg PO HS 08/03/17 07/20/24 History nitroglycerin 0.4 mg sublingual 0.4 mg buccal PRN PRN Chest Pain 11/25/17 07/20/24 History tablet (Nitrostat) furosemide 20 mg tablet 40 mg PO BID 12/24/18 07/20/24 History vitamin B complex-vitamin C-folic 1 tab PO DAILY 12/24/18 07/20/24 History acid 0.8 mg tablet (Skylar-Edgardo) atorvastatin 80 mg tablet 80 mg PO QPM 08/17/19 07/20/24 History hydrocodone 7.5 mg-acetaminophen 1 tab PO BID PRN Pain 08/17/19 07/20/24 History 325 mg tablet calcium acetate(phosphat bind) 667 667 mg PO TID 09/29/22 09/29/22 History mg capsule carvedilol 3.125 mg tablet 3.125 mg PO BID 09/29/22 07/20/24 History lisinopril 5 mg tablet 5 mg PO QDAY 09/29/22 07/20/24 History albuterol sulfate 90 mcg/actuation 2 puff inhalation .[id number] PRN 07/20/24 07/20/24 History aerosol inhaler shortness of breath or wheezing apixaban 2.5 mg tablet (Eliquis) 2.5 mg PO BID 07/20/24 07/20/24 History gabapentin 300 mg capsule 300 mg PO HS 07/20/24 07/20/24 History glipizide 5 mg tablet 2.5 mg PO DAILY 07/20/24 07/20/24 History metoclopramide HCl 5 mg tablet 5 mg PO BID PRN nausea and vomiting 07/20/24 07/20/24 History pantoprazole 40 mg tablet,delayed 40 mg PO BID 07/20/24 07/20/24 History release Allergies Allergy/AdvReac Type Severity Reaction Status Date / Time codeine Allergy Severe Rash Verified 09/30/22 19:16 loratadine Allergy Severe SEVERE Verified 09/30/22 19:16 VOMITING naproxen sodium Allergy Severe RASH AND Verified 09/30/22 19:16 SWELLING trazodone Allergy Severe ANAPHALACTIC Verified 09/30/22 19:16 REACTION Visit Medications Acetaminophen (Acetaminophen 325 Mg Tablet) 650 mg PO Q6H PRN PRN Reason: Pain (1-3) & Fever >100.4 Stop: 11/13/24 10:02 Dextrose (Dextrose 50%-Water Inj 50 Ml Syringe) 25 ml IV Q15MIN PRN PRN Reason: BG 50-70 responsive npo pt Stop: 11/13/24 10:08 Dextrose (Dextrose 50%-Water Inj 50 Ml Syringe) 50 ml IV Q15MIN PRN PRN Reason: BG <50 OR BG <70 & pt unresponsive Stop: 11/13/24 10:08 Glucagon (Glucagon Inj 1 Mg Vial) 1 mg IM Q15MIN PRN PRN Reason: BG <70, and no IV access Insulin Human Lispro (Insulin Lispro (Admelog) 1 Unit/0.01 Ml Unit) 0 unit SC Q6HR [facility]; Protocol Stop: 11/13/24 11:59 Nitroglycerin (Nitroglycerin 0.4 Mg Subl Btl #25) 0.4 mg SL Q5MIN PRN PRN Reason: CHEST PAIN Ondansetron HCl (Ondansetron Inj 2 Mg/Ml Inj 2 Ml) 4 mg IVP Q1HR PRN PRN Reason: PERSISTENT NAUSEA OR VOMITING Last Admin: 10/14/24 07:11 Dose: 4 mg Pantoprazole Sodium (Pantoprazole Inj 40 Mg Vial) 40 mg IVP QDAY KATHERINE Stop: 11/14/24 08:59 Sennosides (Senna Tablet) 1 tab PO QDAY KATHERINE; Protocol Stop: 11/14/24 08:59 Discontinued Medications Aspirin (Aspirin 81 Mg Chew) 324 mg PO X1 ONE Stop: 10/14/24 09:44 Last Admin: 10/14/24 10:04 Dose: 324 mg Clopidogrel Bisulfate (Clopidogrel Bisulfate 300 Mg Tablet) 600 mg PO X1 ONE Stop: 10/14/24 09:42 Clopidogrel Bisulfate (Clopidogrel Bisulfate 75 Mg Tablet) 600 mg PO X1 ONE Stop: 10/14/24 10:01 Last Admin: 10/14/24 10:05 Dose: 600 mg Fentanyl Citrate (Fentanyl Cit Inj 50 Mcg/Ml Amp 2ml) 50 mcg IVP X1 ONE Stop: 10/14/24 06:59 Last Admin: 10/14/24 07:10 Dose: 50 mcg Nitroglycerin (Nitroglycerin Oint 2% 1 Inch Packet) 1 inch TOP X1 ONE Stop: 10/14/24 06:57 Last Admin: 10/14/24 07:11 Dose: 1 inch Assessment & Plan Problem List (1) End stage renal failure on dialysis: Status: Acute Assessment and plan: Patient had 2 missed hemodialysis sessions, due to medical appointments, had contrast exposure 3 days ago angiogram of lower extremity and today during PCI of SVG graft. Patient does not seem to be excessively volume overloaded, but due to contrast exposure, history of HFrEF, needs urgent hemodialysis. Patient denied chest pain postprocedure, has a nitro patch. ? Urgent hemodialysis ordered for today, see dialysis sheet for details. ? Avoid nephrotoxic drugs ? Renally dose medications ? Strict intake and output monitoring. (2) ST elevation (STEMI) myocardial infarction: Status: Acute Assessment and plan: ST elevation noted in lead V1, new change compared to previous EKG. Also complaining of chest discomfort following fall. Burlesque Dancer Dr. Frances is following the patient, patient was taken to [facility] for PCI following diagnosis of STEMI. Received 1 stent to SVG graft. ? Management per cardiology and primary team (3) Intractable nausea and vomiting: Status: Acute Assessment and plan: Patient had been having vomiting nausea and heartburn, tried home remedies baking soda and water with no improvement. Also seen dry heaving in the recovery room postprocedure. ? GI prophylaxis, Protonix ? Zofran as needed for vomiting ? Management per primary team (4) CHF (congestive heart failure): Status: Acute Assessment and plan: History of HFrEF EF 30 to 35% with segmental wall motion abnormality. Currently patient does not seem to be excessively hypervolemic, noted by basilar crackles but no pedal edema or facial puffiness. Actually patient appears clinically dry given history of nausea vomiting. ? Hemodialysis today ? Diuretics per cardiology and primary team Plan plan of care discussed with Dr Job Neal PGY2
--- NOTE | 2024-10-14 10:38 | ESOP_ITS ---
Cardiac Cath Procedure Procedure Narrative Procedure date 10/14/2024 Title of the procedure 1.left heart catheterization 2.left coronary angiogram 3.right coronary angiogram 4.left ventriculogram 5.conscious sedation 6.radiographic interpretation supervision 7.ultrasound guidance for right femoral access 8.angiogram of the vein graft to the RCA 9.angiogram of the vein graft to the obtuse marginal 10.angiogram of the left internal mammary artery to the LAD 11.complex angioplasty and stent placement vein graft to the obtuse marginal 12.abdominal aortogram 13.ipsilateral right femoral angiogram and runoff 14.contralateral left iliac angiogram 15.contralateral left superficial femoral artery angiogram 16.contralateral below the knee vessels angiogram Indication for the procedure This is a 69-year-old gentleman with past medical history of ischemic cardiomyopathy coronary artery disease prior history of bypass surgery in 2011 Patient has an AICD also placed He was seen in the emergency room with a complaint of 8 out of 10 chest pain Initial EKG was showing possible STEMI with ST elevations in V to V3 region STEMI alert was called patient was taken to the Pest Control Supervisor Procedure This is done in the cardiac lab under current electrocardiographic monitoring intermittent blood pressure monitoring Right femoral access obtained using ultrasound guidance 6 Turkish sheath was placed Subsequently JL 4 catheter used for selective in the left coronary artery JR4 catheter was used for selective in the right coronary artery Pigtail catheter used for left ventriculogram Findings Hemodynamics Overall left ventricular systolic function is severely reduced Approximate ejection fraction 20% Marked global hypokinesis End-diastolic pressure was 22 mmHg There is no gradient across the aortic valve Coronary anatomy 1.left main coronary artery appears normal 2.left anterior descending artery is occluded 100% in the midsegment beyond that there appears to be a stent which is 100% occluded 3.circumflex appears to be occluded 100% proximally 4.right coronary is also occluded 100% in the proximal region 5.vein graft to RCA appears to be occluded 6.vein graft to obtuse marginal is patent there appears to be a 90% calcified lesion in the proximal region 7.left internal mammary artery to the LAD appears to be widely patent with good distal flow Conclusion Significant lesion noted in the vein graft to the obtuse marginal Severe seneca-cayuga vessel disease Markedly reduced LV dysfunction Vein graft to the RCA is occluded VILLASEÑOR is patent Recommendation We will proceed with angioplasty and stent placement the vein graft to the obtuse marginal Angioplasty and stent placement vein graft to the obtuse marginal JR4 guiding catheter used to obtain coaxial access [employer] Associate 50 wire was used to cross the lesion with some difficulty Subsequently we attempted to predilated with a 4 oh balloon this was unable to cross At this point we brought down the threaded balloon and predilated the region Subsequently we escalated to 2 x 12 and 4 x 12 balloons up to 14 cm Following that 4.5 x 12 mm stent was placed across the lesion and dilated up to 14 cm Post an angiogram reveals adequate expansion of the entire length of the stent Abdominal aortogram In view of patient's severe peripheral vascular disease we did an abdominal aortogram 1.ipsilateral right iliac and right external iliac shows mild diffuse disease 2.right SFA appears to be occluded 99%, distal SFA receives trickles of blood flow 3.left iliac shows mild diffuse disease heavily calcified vessel 4.left SFA appears to be heavily calcified 20 to 30% mild diffuse disease 5.left anterior and posterior tibial arteries only visualized proximally heavy calcification noted both appears to be normal Conclusion Occluded proximal SFA Continue medical management for now
[2024-10-14 10:56] LABS: INR 1.8 (0.9-1.3); Partial Thromboplastin Time 63.7 Seconds (22.0-36.0); Prothrombin Time 19.3 Seconds (9.0-12.2)
[2024-10-14] MEDS: LORazepam 2 MG/ML VIAL 1 MG IVP (13:15)
--- NOTE | 2024-10-14 13:36 | PD.RESHP ---
Documentation for date of: 10/14/24 [facility] History of Present Illness Chief complaint: Chest Discomfort History of present illness: Mr. Higginbotham is a 69-year-old male with past medical history of coronary artery disease status post CABG x 3 in 2011, status post PCI of one of the grafts in 2012, severe systolic congestive heart failure with EF less than 35% status post single-chamber AICD placement in 2021, possible ischemic cardiomyopathy followed by Dr. Matthews in [place], history of recurrent DVT as well as PE on Eliquis, previously on warfarin, ESRD M/W/F on hemodialysis, type 2 diabetes mellitus, essential hypertension, hyperlipidemia, obesity, chronic smoker with more than [id number] smoking history quit in 2011, substance use including marijuana use, history of thrombocytopenia questionable ITP, chronic anemia, chronic low back pain, depression, family history of cancer who presented to [facility] emergency department today after syncopal episode. Per patient had missed dialysis session due to appointment in [place] and was taking baking soda and water to help with heartburn for the past few days. This morning patient went to the restroom and as soon as he walked out of the restroom he collapsed on the floor provide patient was confused she was able to get him out of the restroom by helping him crawl, denied hitting head after the syncopal episode, endorsed an episode of vomiting. Patient also endorsed chest discomfort after syncopal episode, called ambulance and patient was transported to the ER room patient was found to have ST elevation in lead V1, heart alert was initiated and cardiology started heparin took the patient to cardiac catheterization lab, patient is seen status postcardiac cath in the [facility] patient was found to have blockage in one of the graft vessels, PCI to the SVG was done. Patient did report that he had an angiogram recently done by Dr. Matthews in [place], patient did miss 2 hemodialysis session. ED Course: ED Vitals: On presentation in ED blood pressure 161/96, heart rate 117, respiratory rate 18, temp 98.6, O2 sat 91 on room air ED Labs: ED labs show RBC 3.18, hemoglobin 10.5, hematocrit 30.7, platelet 118, INR 1.8, potassium 5.1, BUN 79, creatinine 12.9, GFR 4, osmolality 313, troponin elevation at 0.382, BNP 318, lipase 63 ED Imaging:Chest x-ray in ED showed mild CHF ED Treatment: As above Patient received fentanyl 50 mcg, Zofran 4 mg and nitroglycerin topical patch in ED Past Medical History Past Medical History Comments PMH COMMENT: Past Medical History: ESRD on HD M/W/F (followed by Dr. Kaiser), CAD s/p CABG 2011 and PCI 2012 (followed by Dr. Matthews), HFrEF s/p AICD, history of DVT/PE on Eliquis, hypertension, type 2 diabetes, chronic low back pain, and depression Family History: No known family history of cardiac disease, SD, or stroke. Father from liver cancer, mother of old age . Grandfather of cancer. Surgical History: CABG 2011, PCI with 1 stent 2012, tonsillectomy Social History: Former history of smoking 42-pack years quit in 2011, former heavy alcohol use quit in 2011, current daily marijuana use for sleep aid and back pain. Patient lives alone on his property and is independent with all IADLs. 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 He is able to drive but tries to avoid it as possible. Allergies: Loratadine - swelling, codeine - rash, naproxen - swelling and rash, trazodone - anaphylaxis Exam Vital Signs Temp Pulse Resp BP Pulse Ox O2 Del Method O2 Flow Rate 98.6 F 116 H 20 155/96 H 93 L Nasal Cannula 4 10/14/24 06:39 10/14/24 13:00 10/14/24 13:00 10/14/24 13:00 10/14/24 13:00 10/14/24 13:00 10/14/24 13:00 Narrative Exam General: Patient seen in recovery room [facility], in no acute distress, currently drowsy following sedation, but easily arousable able to provide limited history. Skin: Intact, no cyanosis or edema noted. Nitropatch visible anterior chest. Midline sternotomy scar. HEENT: Atraumatic/normocephalic, JAELYN, neck supple Heart: RRR, S1 and S2 without clicks or murmurs Lungs: Basal crackles appreciated. Abdomen: Soft, nontender. Bowel sounds present . Vascular: Peripheral pulses palpable Neuro: No focal neurological deficits noted. Results: Labs 10/14/24 06:52 10/14/24 06:52 Labs: Short CBC 10/14/24 Range/Units 06:52 WBC 10.5 (3.8-10.6) Thou/mm3 Hgb 10.5 L (13.5-16.0) g/dL Hct 30.7 L (41.0-53.0) % Plt Count 118 L (140-440) Thou/mm3 BMP 10/14/24 06:52 Sodium 140 Potassium 5.1 Chloride 94 L Carbon Dioxide 24.2 BUN 79 H Creatinine 12.9 H* Glucose 277 H Calcium 9.8 Cardiac Enzymes 10/14/24 Range/Units 06:52 Troponin I 0.382 H* (0.0-0.045) ng/mL Liver Function 10/14/24 Range/Units 06:52 Total Bilirubin 0.6 (0.3-1.2) mg/dL AST 27 (0-34) U/L ALT < 7 L (10-49) U/L Alkaline Phosphatase 93 (46-116) U/L Albumin 4.5 (3.4-4.8) gm/dL Quality Measures Quality Measures none Advance care planning discussed with:: patient Medications Home Medications and Allergies Home Medications ?Medication ?Instructions ?Recorded ?Confirmed ?Type allopurinol 300 mg tablet 300 mg PO QDAY 08/03/17 07/20/24 History citalopram 20 mg tablet 20 mg PO HS 08/03/17 07/20/24 History nitroglycerin 0.4 mg sublingual 0.4 mg buccal PRN PRN Chest Pain 11/25/17 07/20/24 History tablet (Nitrostat) furosemide 20 mg tablet 40 mg PO BID 12/24/18 07/20/24 History vitamin B complex-vitamin C-folic 1 tab PO DAILY 12/24/18 07/20/24 History acid 0.8 mg tablet (Skylar-Edgardo) atorvastatin 80 mg tablet 80 mg PO QPM 08/17/19 07/20/24 History hydrocodone 7.5 mg-acetaminophen 1 tab PO BID PRN Pain 08/17/19 07/20/24 History 325 mg tablet calcium acetate(phosphat bind) 667 667 mg PO TID 09/29/22 09/29/22 History mg capsule carvedilol 3.125 mg tablet 3.125 mg PO BID 09/29/22 07/20/24 History lisinopril 5 mg tablet 5 mg PO QDAY 09/29/22 07/20/24 History albuterol sulfate 90 mcg/actuation 2 puff inhalation .[id number] PRN 07/20/24 07/20/24 History aerosol inhaler shortness of breath or wheezing apixaban 2.5 mg tablet (Eliquis) 2.5 mg PO BID 07/20/24 07/20/24 History gabapentin 300 mg capsule 300 mg PO HS 07/20/24 07/20/24 History glipizide 5 mg tablet 2.5 mg PO DAILY 07/20/24 07/20/24 History metoclopramide HCl 5 mg tablet 5 mg PO BID PRN nausea and vomiting 07/20/24 07/20/24 History pantoprazole 40 mg tablet,delayed 40 mg PO BID 07/20/24 07/20/24 History release Allergies Allergy/AdvReac Type Severity Reaction Status Date / Time codeine Allergy Severe Rash Verified 09/30/22 19:16 loratadine Allergy Severe SEVERE Verified 09/30/22 19:16 VOMITING naproxen sodium Allergy Severe RASH AND Verified 09/30/22 19:16 SWELLING trazodone Allergy Severe ANAPHALACTIC Verified 09/30/22 19:16 REACTION Visit Medications Acetaminophen (Acetaminophen 325 Mg Tablet) 650 mg PO Q6H PRN PRN Reason: Pain (1-3) & Fever >100.4 Stop: 11/13/24 10:02 Dextrose (Dextrose 50%-Water Inj 50 Ml Syringe) 25 ml IV Q15MIN PRN PRN Reason: BG 50-70 responsive npo pt Stop: 11/13/24 10:08 Dextrose (Dextrose 50%-Water Inj 50 Ml Syringe) 50 ml IV Q15MIN PRN PRN Reason: BG <50 OR BG <70 & pt unresponsive Stop: 11/13/24 10:08 Glucagon (Glucagon Inj 1 Mg Vial) 1 mg IM Q15MIN PRN PRN Reason: BG <70, and no IV access Insulin Human Lispro (Insulin Lispro (Admelog) 1 Unit/0.01 Ml Unit) 0 unit SC Q6HR KATHERINE; Protocol Stop: 11/13/24 11:59 Nitroglycerin (Nitroglycerin 0.4 Mg Subl Btl #25) 0.4 mg SL Q5MIN PRN PRN Reason: CHEST PAIN Ondansetron HCl (Ondansetron Inj 2 Mg/Ml Inj 2 Ml) 4 mg IVP Q1HR PRN PRN Reason: PERSISTENT NAUSEA OR VOMITING Last Admin: 10/14/24 07:11 Dose: 4 mg Pantoprazole Sodium (Pantoprazole Inj 40 Mg Vial) 40 mg IVP QDAY KATHERINE Stop: 11/14/24 08:59 Sennosides (Senna Tablet) 1 tab PO QDAY KATHERINE; Protocol Stop: 11/14/24 08:59 Discontinued Medications Aspirin (Aspirin 81 Mg Chew) 324 mg PO X1 ONE Stop: 10/14/24 09:44 Last Admin: 10/14/24 10:04 Dose: 324 mg Clopidogrel Bisulfate (Clopidogrel Bisulfate 300 Mg Tablet) 600 mg PO X1 ONE Stop: 10/14/24 09:42 Clopidogrel Bisulfate (Clopidogrel Bisulfate 75 Mg Tablet) 600 mg PO X1 ONE Stop: 10/14/24 10:01 Last Admin: 10/14/24 10:05 Dose: 600 mg Fentanyl Citrate (Fentanyl Cit Inj 50 Mcg/Ml Amp 2ml) 50 mcg IVP X1 ONE Stop: 10/14/24 06:59 Last Admin: 10/14/24 07:10 Dose: 50 mcg Lorazepam (Lorazepam 2 Mg/Ml Vial) 1 mg IVP X1 ONE Stop: 10/14/24 11:51 Last Admin: 10/14/24 13:15 Dose: 1 mg Nitroglycerin (Nitroglycerin Oint 2% 1 Inch Packet) 1 inch TOP X1 ONE Stop: 10/14/24 06:57 Last Admin: 10/14/24 07:11 Dose: 1 inch Assessment & Plan Plan Mr. Higginbotham is a 69-year-old male with past medical history of coronary artery disease status post CABG x 3 in 2011, status post PCI of one of the grafts in 2012, severe systolic congestive heart failure with EF less than 35% status post single-chamber AICD placement in 2021, possible ischemic cardiomyopathy followed by Dr. 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 emergency department today after syncopal episode. Patient was found to have ST elevation in V1, heart alert called in the ED and patient was taken to cardiac [facility] for emergent cardiac catheterization, patient is status postcardiac cath x 1 stent to SVG. #ST elevation myocardial infarction #Status post cardiac catheterization, PCI x 1 to SVG #Heart failure with reduced ejection fraction, EF 20% Patient presented with chest discomfort, syncope. Was found to have ST elevation in lead V1 in ED, troponin elevation noted at 0.382. Patient was taken to cardiac catheterization lab had x 1 stent placed in SVG Cardiac cath findings: -Overall left ventricular systolic function is severely reduced, Approximate ejection fraction 20% -Marked global hypokinesis, End-diastolic pressure was 22 mmHg -left anterior descending artery is occluded 100% in the midsegment beyond that there appears to be a stent which is 100% occluded -circumflex appears to be occluded 100% proximally -right coronary is also occluded 100% in the proximal region -vein graft to RCA appears to be occluded -vein graft to obtuse marginal is patent there appears to be a 90% calcified lesion in the proximal region -left internal mammary artery to the LAD appears to be widely patent with good distal flow Conclusion of Cath Finding: Significant lesion noted in the vein graft to the obtuse marginal Severe [place] vessel disease Markedly reduced LV dysfunction Vein graft to the RCA is occluded VILLASEÑOR is patent Angioplasty and stent placement vein graft to the obtuse marginal Plan: - Started on aspirin and Plavix daily - Cardiology consulted, appreciate recommendations - Started on low-dose beta-elver Coreg 3.125 twice daily - Monitor for chest pain - Close telemetry monitoring #ESRD, dialysis Thursday Patient missed 2 sessions of dialysis. - Scheduled for dialysis today -Nephrology consulted, appreciate recommendations #Type 2 diabetes mellitus -Sliding scale insulin -Carb consistent diet -Hypoglycemia protocol #Hyperlipidemia #Hypertension #Obesity #Chronic smoker, more than 40 pack years -Started on atorvastatin -Continue Coreg for now, monitor blood pressure DVT prophylaxis: SCD GI prophylaxis: IV Protonix Diet: Carb consistent, cardiac, renal Lines: Peripheral IV Code status: Full code Case discussed with Attending Dr. Jess Ledbetter PGY1 Disclaimer: This note was dictated by speech recognition. Minor errors in operations intelligence superintendent may be present due to voice recognition software. Attending Provider Attestation/Addendum I have discussed and was present for the essential components of the history, physical examination, diagnosis, and treatment plan with the resident. I agree with the patient's care as documented by the resident and amended herein by me. Yossi Mercado DO. Although this document has been carefully reviewed, there may still be some phonetic and other typographical errors. These errors are purely grammatical due to imperfections in the software program and should not be construed in any way to compromise the substance of the patient's medical care during this visit.
--- NOTE | 2024-10-14 14:46 | PC.LAC ---
1412 patient is resting in gurney, sleepy and arousable, breathing unlabored, s/p LHC by Dr. diamond, dressing to right groin dry with no bleeding or hematoma present, sand bag in place. Report received from Wilmar ROSALES, arterial sheath removed at 1100 and patient should be in bedest for at least 4 hours. patient recovery has been completed, waiting for inpatient bed assignment.
--- NOTE | 2024-10-14 16:15 | PC.NURSE ---
1615 patient waiting to be picked up by vein pumper HR 103 R 27, BP 146/78, O2 sat 96% via 4L NC
--- NOTE | 2024-10-14 16:36 | PC.NURSE ---
1630 patient picked up by Monserrat Sorto RN, report has been given by Darlene ROSALES to Malka ROSALES who will take over patient after dialysis. Darlene also spoke to dialysis nurse to let her know plan of care of patient.
--- NOTE | 2024-10-14 16:40 | PC.NURSE ---
spoke to Xochitl per patient request and informed her patient is going to be in dialysis, then go to tele room.
[2024-10-14] MEDS: ATORVASTATIN CALCIUM 20 MG TABLET 80 MG PO (20:55)
[2024-10-15] VITALS (12 sets, daily range): BP systolic 108–132; BP diastolic 60–74; PULSE 81–91; RESP 16–21; TEMP 36.3–36.9; O2SAT 93–98; BMI 32.1
[2024-10-15 06:19] LABS: Basophils % (Auto) 0 % (0-2.5); Eosinophils # (Auto) 0.1 Thou/mm3 (0.0-0.5); Eosinophils % (Auto) 1 % (0-10); Hematocrit 26.4 % (41.0-53.0); Hemoglobin 8.9 g/dL (13.5-16.0); Immature Granulocytes % (Auto) 0 % (0-0); Immature Granulocytes Auto 0.03 Thou/mm3 (0.00-0.00); Lymphocytes # (Auto) 1.2 Thou/mm3 (1.0-4.8); Lymphocytes % (Auto) 14 % (10-50); Mean Corpuscular HGB Conc 33.7 g/dl (31.0-37.0); Mean Corpuscular Hemoglobin 32.8 pg (25.0-35.0); Mean Corpuscular Volume 97 fL (80-100); Monocytes % (Auto) 10 % (0-12); Neutrophils # (Auto) 6.9 Thou/mm3 (1.8-7.7); Neutrophils % (Auto) 75 % (37-80); Nucleated Red Blood Cell % 0 /100 WBC (0); Platelet Count 82 Thou/mm3 (140-440); RDW Standard Deviation 58.7 fL (35.1-43.9); Red Blood Count 2.71 Miln/mm3 (4.50-5.90); White Blood Count 9.2 Thou/mm3 (3.8-10.6)
[2024-10-15 06:34] LABS: INR 1.1 (0.9-1.3); Partial Thromboplastin Time 27.7 Seconds (22.0-36.0); Prothrombin Time 12.2 Seconds (9.0-12.2)
[2024-10-15 06:50] LABS: Anion Gap 14 (7-16); BUN/Creatinine Ratio 5 Ratio (12-20); Blood Urea Nitrogen 46 mg/dL (9-23); Calcium 9.3 mg/dL (8.3-10.6); Carbon Dioxide 27.7 mMol/L (20.0-31.0); Cardiac Risk Estimate 3.5 RATIO (4.0-6.7); Chloride 95 mMol/L (98-107); Cholesterol 106 mg/dL (132-200); Creatinine (Component) 9.9 mg/dL (0.6-1.3); Estimated Creatinine Clearance 8.8 mL/min (>60); Glucose 125 mg/dL (74-106); HDL Cholesterol 30 mg/dL (40-60); LDL Cholesterol,Calculated 58 mg/dL (0-130); Osmolality,Calculated 286 (275-295); Phosphorous 7.2 mg/dL (2.4-5.1); Potassium 4.5 mMol/L (3.4-5.1); Sodium 137 mMol/L (136-145); Thyroid Stimulating Hormone 0.92 uIU/mL (0.55-4.78); Triglycerides 91 mg/dL (30-150); eGFR 5 See Note
[2024-10-15 06:55] LABS: Glucose Estimated Average 114 mg/dL (80-131); Hemoglobin A1C 5.6 % Hgb (4.8-6.0)
[2024-10-15] MEDS: carVEDILOL 3.125 MG TABLET PO ×2 (07:59→17:08)
[2024-10-15] MEDS: SENNA TABLET 1 TAB PO (08:00)
[2024-10-15] MEDS: ASPIRIN EC 81 MG TABEC PO (08:00)
[2024-10-15] MEDS: CLOPIDOGREL BISULFATE 75 MG TABLET PO (08:00)
[2024-10-15] MEDS: PANTOPRAZOLE INJ 40 MG VIAL IVP (08:00)
[2024-10-15] MEDS: SEVELAMER CARBONATE 800 MG TABLET PO ×3 (08:09→17:08)
--- NOTE | 2024-10-15 11:35 | PD.IMPROG ---
Documentation for date of: 10/15/24 Subjective Subjective Interval history: Patient appears comfortable No chest pain neck pain left arm pain noted Patient underwent dialysis Patient's status post PCI to the vein graft to the obtuse marginal Patient's vein graft to the RCA appears to be occluded chronically Patient's VILLASEÑOR to the LAD appears to be widely patent Severe LV dysfunction Prior history of AICD in place Continue to ambulate the patient We will continue dual antiplatelet agents, optimize heart failure medications agree with discharge planning Exam Vital Signs Temp Pulse Resp BP Pulse Ox O2 Del Method O2 Flow Rate 97.8 F 86 16 119/72 93 L Nasal Cannula 2 10/15/24 08:00 10/15/24 08:00 10/15/24 08:00 10/15/24 08:00 10/15/24 08:00 10/15/24 08:00 10/15/24 08:00 Routine HEENT Exam Head: Present normocephalic and atraumatic Eye: Present EOMI and PERRL ENT: Present mucous membranes moist Routine Neck Exam Neck: Present supple and trachea midline Routine Respiratory Exam Respiratory: Present chest non-tender, lungs clear, normal breath sounds and no resp distress Routine Cardiovascular Exam Cardiovascular: Present RRR Routine Abdominal Exam Abdominal: Present soft and normoactive bowel sounds Routine Extremities Exam Extremities: Present full ROM Routine Skin Exam Skin: Present intact, dry and warm Routine Neurological Exam Neurological: Present alert, oriented X3 and CN II-XII intact Routine Psychiatric Exam Psychiatric: Present normal affect and normal thought process Objective Labs 10/15/24 05:27 10/15/24 05:27 Labs: Laboratory Results - last 24 hr 10/15/24 05:27 WBC 9.2 RBC 2.71 L Hgb 8.9 L Hct 26.4 L MCV 97 MCH 32.8 MCHC 33.7 RDW Std Deviation 58.7 H Plt Count 82 L D Neut % (Auto) 75 Lymph % (Auto) 14 Bryan % (Auto) 10 Eos % (Auto) 1 Baso % (Auto) 0 Neut # (Auto) 6.9 Lymph # (Auto) 1.2 Bryan # (Auto) 1.0 H Eos # (Auto) 0.1 Baso # (Auto) 0.0 Immature Gran # (Auto) 0.03 H Absolute Nucleated RBC 0.00 Immature Gran % 0 Nucleated RBC % 0 PT 12.2 D INR 1.1 APTT 27.7 D Sodium 137 Potassium 4.5 D Chloride 95 L Carbon Dioxide 27.7 Anion Gap 14 BUN 46 H Creatinine 9.9 H* D Estim Creat Clear Calc 8.8 L eGFR 5 L* BUN/Creatinine Ratio 5 L Glucose [address] Glu mg/dL 114 Hemoglobin A1c 5.6 Calculated Osmolality 286 Calcium 9.3 Phosphorus 7.2 H Magnesium 2.0 Triglycerides 91 Cholesterol 106 L LDL Cholesterol, Calc 58 HDL Cholesterol 30 L Cholesterol/HDL Ratio 3.5 L TSH 0.92 Assessment & Plan A&P Narrative Agree with current treatment plan Continue aspirin Plavix Continue Coreg Consider Entresto, spironolactone Ambulate the patient Agree with discharge planning Time Spent With Patient Time: Total time spent is greater than 50% in coordination of care (as documented) at patient's floor/unit and/or counseling patient:
--- NOTE | 2024-10-15 11:46 | PD.RESPRO ---
Documentation for date of: 10/15/24 Subjective Subjective Interval history: Patient seen and examined at bedside. Denies any chest pain, saturating well on 2 L. Continue aspirin and Plavix. Resume home medications: Allopurinol, citalopram and gabapentin. Will consider adding Entresto, spironolactone as blood pressure tolerates. Currently tolerating Coreg well. Discussed with cardiology, will monitor for 24 hours. Patient has extensive coronary artery disease, informed at bedside about close outpatient follow-up, verbalized understanding. Exam Vital Signs Temp Pulse Resp BP Pulse Ox O2 Del Method O2 Flow Rate 97.8 F 86 16 119/72 93 L Nasal Cannula 2 10/15/24 08:00 10/15/24 08:00 10/15/24 08:00 10/15/24 08:00 10/15/24 08:00 10/15/24 08:00 10/15/24 08:00 Narrative Exam Physical Exam General: Awake and in no acute distress. Conversational and non-toxic appearing. HEENT: Normocephalic, atraumatic, mucous membranes moist. On 2 L nasal cannula. Heart: Regular rate and rhythm, no murmurs. Lungs: Clear to auscultation with no wheezing or crackles. Abdomen: Soft, nondistended, nontender, positive bowel sounds. ?No guarding or rebound tenderness. Neurologic: Alert and oriented x3, no gross neurological deficit, and patient able to move all 4 extremities. Extremities: No edema. Skin: No rash or ecchymoses. Objective Labs 10/15/24 05:27 10/15/24 05:27 Labs: Laboratory Results - last 24 hr 10/15/24 05:27 WBC 9.2 RBC 2.71 L Hgb 8.9 L Hct 26.4 L MCV 97 MCH 32.8 MCHC 33.7 RDW Std Deviation 58.7 H Plt Count 82 L D Neut % (Auto) 75 Lymph % (Auto) 14 [place] % (Auto) 10 Eos % (Auto) 1 Baso % (Auto) 0 Neut # (Auto) 6.9 Lymph # (Auto) 1.2 [place] # (Auto) 1.0 H Eos # (Auto) 0.1 Baso # (Auto) 0.0 Immature Gran # (Auto) 0.03 H Absolute Nucleated RBC 0.00 Immature Gran % 0 Nucleated RBC % 0 PT 12.2 D INR 1.1 APTT 27.7 D Sodium 137 Potassium 4.5 D Chloride 95 L Carbon Dioxide 27.7 Anion Gap 14 BUN 46 H Creatinine 9.9 H* D Estim Creat Clear Calc 8.8 L eGFR 5 L* BUN/Creatinine Ratio 5 L Glucose [address] Glu mg/dL 114 Hemoglobin A1c 5.6 Calculated Osmolality 286 Calcium 9.3 Phosphorus 7.2 H Magnesium 2.0 Triglycerides 91 Cholesterol 106 L LDL Cholesterol, Calc 58 HDL Cholesterol 30 L Cholesterol/HDL Ratio 3.5 L TSH 0.92 Quality Measures Quality Measures none Advance care planning discussed with:: patient Assessment & Plan Assessment Current Active Medications: Generic Name Dose Route Start Last Admin Trade Name Freq PRN Reason Stop Dose Admin Acetaminophen 650 mg 10/14/24 10:03 Acetaminophen 325 Mg Tablet PO 11/13/24 10:02 Q6H PRN Pain (1-3) & Fever >100.4 Aspirin 81 mg 10/15/24 09:00 10/15/24 08:00 Aspirin Ec 81 Mg Tabec PO 11/14/24 08:59 81 mg QDAY KATHERINE Administration Atorvastatin Calcium 80 mg 10/14/24 21:00 10/14/24 20:55 Atorvastatin Calcium 20 Mg Tablet PO 11/13/24 20:59 80 mg HS KATHERINE Administration Carvedilol 3.125 mg 10/14/24 17:30 10/15/24 07:59 Carvedilol 3.125 Mg Tablet PO 11/13/24 17:29 3.125 mg BIDWM KATHERINE Administration Clopidogrel Bisulfate 75 mg 10/15/24 09:00 10/15/24 08:00 Clopidogrel Bisulfate 75 Mg Tablet PO 11/14/24 08:59 75 mg QDAY KATHERINE Administration Dextrose 25 ml 10/14/24 10:09 Dextrose 50%-Water Inj 50 Ml Syringe IV 11/13/24 10:08 Q15MIN PRN BG 50-70 responsive npo pt Dextrose 50 ml 10/14/24 10:09 Dextrose 50%-Water Inj 50 Ml Syringe IV 11/13/24 10:08 Q15MIN PRN BG <50 OR BG <70 & pt unresponsive Glucagon 1 mg 10/14/24 10:09 Glucagon Inj 1 Mg Vial IM Q15MIN PRN BG <70, and no IV access Insulin Human Lispro 0 unit 10/14/24 17:00 10/15/24 07:25 Insulin Lispro (Admelog) 1 Unit/0.01 Ml Unit SC 11/13/24 16:59 Not Given AC [facility] Protocol Nitroglycerin 0.4 mg 10/14/24 06:56 Nitroglycerin 0.4 Mg Subl Btl #25 SL Q5MIN PRN CHEST PAIN Ondansetron HCl 4 mg 10/14/24 06:51 10/14/24 07:11 Ondansetron Inj 2 Mg/Ml Inj 2 Ml IVP 4 mg Q1HR PRN Administration PERSISTENT NAUSEA OR VOMITING Pantoprazole Sodium 40 mg 10/15/24 09:00 10/15/24 08:00 Pantoprazole Inj 40 Mg Vial IVP 11/14/24 08:59 40 mg QDAY KATHERINE Administration Sennosides 1 tab 10/15/24 09:00 10/15/24 08:00 Senna Tablet PO 11/14/24 08:59 1 tab QDAY [facility] Administration Protocol Sevelamer Carbonate 800 mg 10/15/24 08:00 10/15/24 08:09 Sevelamer Carbonate 800 Mg Tablet PO 11/14/24 07:59 800 mg TIDWM KATHERINE Administration Plan Mr. Higginbotham is a 69-year-old male with past medical history of coronary artery disease status post CABG x 3 in 2011, status post PCI of one of the grafts in 2012, severe systolic congestive heart failure with EF less than 35% status post single-chamber AICD placement in 2021, possible ischemic cardiomyopathy followed by Dr. Matthews in [place], history of recurrent DVT as well as PE on Eliquis, previously on warfarin, ESRD M/W/F on hemodialysis, type 2 diabetes mellitus, essential hypertension, hyperlipidemia, obesity, chronic smoker with more than [id number] smoking history quit in 2011, substance use including marijuana use, history of thrombocytopenia questionable ITP, chronic anemia, chronic low back pain, depression, family history of cancer who presented to [facility] emergency department today after syncopal episode. Patient was found to have ST elevation in V1, heart alert called in the ED and patient was taken to cardiac [facility] for emergent cardiac catheterization, patient is status postcardiac cath x 1 stent to SVG. #ST elevation myocardial infarction #Status post cardiac catheterization, PCI x 1 to SVG #Heart failure with reduced ejection fraction, EF 20% Patient presented with chest discomfort, syncope. Was found to have ST elevation in lead V1 in ED, troponin elevation noted at 0.382. Patient was taken to cardiac catheterization lab had x 1 stent placed in SVG Cardiac cath findings: -Overall left ventricular systolic function is severely reduced, Approximate ejection fraction 20% -Marked global hypokinesis, End-diastolic pressure was 22 mmHg -left anterior descending artery is occluded 100% in the midsegment beyond that there appears to be a stent which is 100% occluded -circumflex appears to be occluded 100% proximally -right coronary is also occluded 100% in the proximal region -vein graft to RCA appears to be occluded -vein graft to obtuse marginal is patent there appears to be a 90% calcified lesion in the proximal region -left internal mammary artery to the LAD appears to be widely patent with good distal flow Conclusion of Cath Finding: Significant lesion noted in the vein graft to the obtuse marginal Severe deering vessel disease Markedly reduced LV dysfunction Vein graft to the RCA is occluded VILLASEÑOR is patent Angioplasty and stent placement vein graft to the obtuse marginal Plan: - Continue aspirin and Plavix daily -Continue low-dose beta-elver Coreg 3.125 twice daily - Cardiology consulted, appreciate recommendations - Will consider adding Entresto, spironolactone as blood pressure tolerates. - Monitor for chest pain - Close telemetry monitoring #ESRD, dialysis Thursday Patient missed 2 sessions of dialysis. Patient received hemodialysis yesterday, had about 2600cc fluid removed. -Nephrology consulted, appreciate recommendations #Type 2 diabetes mellitus -Sliding scale insulin -Carb consistent diet -Hypoglycemia protocol #Hyperlipidemia #Hypertension #Obesity #Chronic smoker, more than 40 pack years -Started on atorvastatin -Continue Coreg for now, monitor blood pressure #Depression Resume home dose escitalopram, gabapentin DVT prophylaxis: SCD GI prophylaxis: IV Protonix Diet: Carb consistent, cardiac, renal Lines: Peripheral IV Code status: Full code Case discussed with Attending Dr. Jess Ledbetter PGY1 Disclaimer: This note was dictated by speech recognition. Minor errors in commissioner of conciliation may be present due to voice recognition software. Attending Provider Attestation/Addendum I have discussed and was present for the essential components of the history, physical examination, diagnosis, and treatment plan with the resident. I agree with the patient's care as documented by the resident and amended herein by me. Yossi Tingle, DO. Patient seen and evaluated this AM. Vital signs stable, patient afebrile overnight, presently on nasal cannula 4 L, SpO2 93%, significant labs include a stable hemoglobin 8.9, platelet count 83, BUN 46, creatinine 9.9. Last hemodialysis session yesterday, will continue tomorrow. For now per cardiology recommendations, will continue aspirin, statin, Coreg, Plavix and will restart Eliquis 2.5 mg twice daily when able. No significant plaints, likely discharge home Thursday, 10/17 per cardiology recommendations. Although this document has been carefully reviewed, there may still be some phonetic and other typographical errors. These errors are purely grammatical due to imperfections in the software program and should not be construed in any way to compromise the substance of the patient's medical care during this visit.
[2024-10-15] MEDS: ATORVASTATIN CALCIUM 20 MG TABLET 80 MG PO (20:11)
[2024-10-15] MEDS: GABAPENTIN 300 MG CAPSULE PO (20:11)
[2024-10-15] MEDS: CITALOPRAM 20 MG TABLET PO (20:12)
[2024-10-16] VITALS (8 sets, daily range): BP systolic 106–133; BP diastolic 65–75; PULSE 75–89; RESP 12–23; TEMP 36.3–36.5; O2SAT 95–97; BMI 32.1
[2024-10-16 05:53] LABS: Basophils % (Auto) 0 % (0-2.5); Eosinophils # (Auto) 0.2 Thou/mm3 (0.0-0.5); Eosinophils % (Auto) 3 % (0-10); Hematocrit 25.4 % (41.0-53.0); Immature Granulocytes % (Auto) 0 % (0-0); Immature Granulocytes Auto 0.02 Thou/mm3 (0.00-0.00); Lymphocytes # (Auto) 1.5 Thou/mm3 (1.0-4.8); Lymphocytes % (Auto) 21 % (10-50); Mean Corpuscular HGB Conc 33.9 g/dl (31.0-37.0); Mean Corpuscular Hemoglobin 32.7 pg (25.0-35.0); Mean Corpuscular Volume 97 fL (80-100); Monocytes # (Auto) 0.8 Thou/mm3 (0.0-0.8); Monocytes % (Auto) 11 % (0-12); Neutrophils # (Auto) 4.7 Thou/mm3 (1.8-7.7); Neutrophils % (Auto) 64 % (37-80); Nucleated Red Blood Cell % 0 /100 WBC (0); Platelet Count 81 Thou/mm3 (140-440); RDW Standard Deviation 57.2 fL (35.1-43.9); Red Blood Count 2.63 Miln/mm3 (4.50-5.90); White Blood Count 7.3 Thou/mm3 (3.8-10.6)
[2024-10-16 06:10] LABS: Hemoglobin 8.6 g/dL (13.5-16.0)
[2024-10-16 06:55] LABS: Anion Gap 13 (7-16); BUN/Creatinine Ratio 5 Ratio (12-20); Blood Urea Nitrogen 63 mg/dL (9-23); Calcium 9.1 mg/dL (8.3-10.6); Carbon Dioxide 28.2 mMol/L (20.0-31.0); Chloride 95 mMol/L (98-107); Estimated Creatinine Clearance 7.2 mL/min (>60); Glucose 88 mg/dL (74-106); Magnesium 1.9 mg/dL (1.6-2.6); Osmolality,Calculated 288 (275-295); Phosphorous 6.4 mg/dL (2.4-5.1); Potassium 4.2 mMol/L (3.4-5.1); Sodium 136 mMol/L (136-145); eGFR 4 See Note
[2024-10-16 06:58] LABS: Creatinine (Component) 12.1 mg/dL (0.6-1.3)
[2024-10-16] MEDS: SEVELAMER CARBONATE 800 MG TABLET PO ×2 (07:32→12:11)
[2024-10-16] MEDS: ASPIRIN EC 81 MG TABEC PO (08:05)
[2024-10-16] MEDS: carVEDILOL 3.125 MG TABLET PO (08:05)
[2024-10-16] MEDS: SENNA TABLET 1 TAB PO (08:06)
[2024-10-16] MEDS: Magnesium Sulfate 2 GM Ivpb 2 GM/50 ML BAG IV (08:06)
[2024-10-16] MEDS: CLOPIDOGREL BISULFATE 75 MG TABLET PO (08:06)
[2024-10-16] MEDS: PANTOPRAZOLE INJ 40 MG VIAL IVP (08:06)
[2024-10-16] MEDS: allopurinoL 100 MG TABLET 300 MG PO (08:13)
[2024-10-16] MEDS: SACUBITRIL 24 MG/VALSARTAN 26 MG TABLET 0.5 TAB PO (10:32)
--- NOTE | 2024-10-16 12:03 | PC.NURSE ---
Ambulated Pt. on room air and patient desaturated down to 85% on room air. Assisted patient back to bed and replaced on 2L O2 and Pt. came back up to 97% oxygen saturation.
[2024-10-16] MEDS: INSULIN LISPRO (AdmeLOG) 1 UNIT/0.01 ML UNIT SC (12:17)
--- NOTE | 2024-10-16 13:21 | ESPR_ITS ---
Documentation for date of: 10/16/24 Subjective Subjective Interval history: pt denies chest pain s/p PCI-SVG-OM Ischemic cardiomyopathy agree wth entristo Exam Vital Signs Temp Pulse Resp BP Pulse Ox O2 Del Method O2 Flow Rate 97.3 F 75 23 H 133/65 H 97 Nasal Cannula 2 10/16/24 12:00 10/16/24 12:00 10/16/24 12:00 10/16/24 12:00 10/16/24 12:00 10/16/24 12:00 10/16/24 12:00 Routine HEENT Exam Head: Present normocephalic and atraumatic Eye: Present EOMI and PERRL ENT: Present mucous membranes moist Routine Neck Exam Neck: Present supple and trachea midline Routine Respiratory Exam Respiratory: Present chest non-tender, lungs clear, normal breath sounds and no resp distress Routine Cardiovascular Exam Cardiovascular: Present RRR Routine Abdominal Exam Abdominal: Present soft and normoactive bowel sounds Routine Extremities Exam Extremities: Present full ROM Routine Skin Exam Skin: Present intact, dry and warm Routine Neurological Exam Neurological: Present alert, oriented X3 and CN II-XII intact Routine Psychiatric Exam Psychiatric: Present normal affect and normal thought process Objective Labs 10/16/24 05:05 10/16/24 05:05 Labs: Laboratory Results - last 24 hr 10/16/24 05:05 WBC 7.3 RBC 2.63 L Hgb 8.6 L Hct 25.4 L MCV 97 MCH 32.7 MCHC 33.9 RDW Std Deviation 57.2 H Plt Count 81 L Neut % (Auto) 64 Lymph % (Auto) 21 [place] % (Auto) 11 Eos % (Auto) 3 Baso % (Auto) 0 Neut # (Auto) 4.7 Lymph # (Auto) 1.5 [place] # (Auto) 0.8 Eos # (Auto) 0.2 Baso # (Auto) 0.0 Immature Gran # (Auto) 0.02 H Absolute Nucleated RBC 0.00 Immature Gran % 0 Nucleated RBC % 0 Sodium 136 Potassium 4.2 Chloride 95 L Carbon Dioxide 28.2 Anion Gap 13 BUN 63 H Creatinine 12.1 H* D Estim Creat Clear Calc 7.2 L eGFR 4 L* BUN/Creatinine Ratio 5 L Glucose 88 Calculated Osmolality 288 Calcium 9.1 Phosphorus 6.4 H Magnesium 1.9 Assessment & Plan A&P Narrative ok for discharge Time Spent With Patient Time: Total time spent is greater than 50% in coordination of care (as documented) at patient's floor/unit and/or counseling patient:
--- NOTE | 2024-10-16 14:39 | PD.NEPHPROG ---
Documentation for date of: 10/16/24 Subjective Subjective Interval history: Pt is seen and examined no new complaints Pt is on dialysis MWF schedule Exam Vital Signs Temp Pulse Resp BP Pulse Ox O2 Del Method O2 Flow Rate 97.3 F 89 19 133/65 H 97 Nasal Cannula 2 10/16/24 12:00 10/16/24 13:49 10/16/24 13:49 10/16/24 12:00 10/16/24 13:49 10/16/24 12:00 10/16/24 13:49 Narrative Exam General no distress chest CTA mumtaz heart s1, s2 Ext no edema Objective Labs 10/16/24 05:05 10/16/24 05:05 Labs: Laboratory Results - last 24 hr 10/16/24 05:05 WBC 7.3 RBC 2.63 L Hgb 8.6 L Hct 25.4 L MCV 97 MCH 32.7 MCHC 33.9 RDW Std Deviation 57.2 H Plt Count 81 L Neut % (Auto) 64 Lymph % (Auto) 21 [place] % (Auto) 11 Eos % (Auto) 3 Baso % (Auto) 0 Neut # (Auto) 4.7 Lymph # (Auto) 1.5 [place] # (Auto) 0.8 Eos # (Auto) 0.2 Baso # (Auto) 0.0 Immature Gran # (Auto) 0.02 H Absolute Nucleated RBC 0.00 Immature Gran % 0 Nucleated RBC % 0 Sodium 136 Potassium 4.2 Chloride 95 L Carbon Dioxide 28.2 Anion Gap 13 BUN 63 H Creatinine 12.1 H* D Estim Creat Clear Calc 7.2 L eGFR 4 L* BUN/Creatinine Ratio 5 L Glucose 88 Calculated Osmolality 288 Calcium 9.1 Phosphorus 6.4 H Magnesium 1.9 Assessment & Plan Assessment and plan (1) End stage renal failure on dialysis: Status: Acute Assessment and plan: Pt is going to be discharged resume out pt dialysis MWF schedule (2) ST elevation (STEMI) myocardial infarction: Status: Acute (3) Intractable nausea and vomiting: Status: Acute (4) CHF (congestive heart failure): Status: Acute
--- NOTE | 2024-10-16 16:18 | PD.RESDS ---
Planned Discharge Date 10/16/24 DS: Providers Provider Date of admission: 10/14/24 09:58 Primary care physician: Physician No Primary/Family Admitting Provider: Kel Ledbetter MD Attending Provider on Admission: Markie Mercado DO Consults: 10/14/24 06:52 Consult to Cardiology Stat Comment: Consulting Provider: Joanie Frances 10/14/24 10:01 Consult to Nephrology Stat Comment: ESRD Consulting Provider: Martine Kaiser 10/15/24 11:57 Referral Physical Therapy Routine Comment: Physician Instructions: Attending Provider on DC: Markie Mercado DO Discharging Provider: Markie Mercado DO Anticipated date of discharge: 10/16/24 DS: Diagnosis Problem List Completed Was Problem List Reviewed/Reconciled?: Yes Hospital Course Hospital Course Hospital course: Hospital course: Mr. Higginbotham is a 69-year-old male with past medical history of coronary artery disease status post CABG x 3 in 2011, status post PCI of one of the grafts in 2012, severe systolic congestive heart failure with EF less than 35% status post single-chamber AICD placement in 2021, possible ischemic cardiomyopathy followed by Dr. Matthews in [place], history of recurrent DVT as well as PE on Eliquis, previously on warfarin, ESRD M/W/F on hemodialysis, type 2 diabetes mellitus, essential hypertension, hyperlipidemia, obesity, chronic smoker with more than 20-[id number] smoking history quit in 2011, substance use including marijuana use, history of thrombocytopenia questionable ITP, chronic anemia, chronic low back pain, depression, family history of cancer who presented to [facility] emergency department on 10/14/2024 with a chief complaint of syncopal episode. Patient was found to have ST elevation in V1 lead, heart rate was called in the ED and patient was taken to cardiac catheterization lab for emergent cardiac catheterization. Patient underwent angioplasty and stent placement vein graft to obtuse marginal, other cardiac catheterization findings noted in the op report, overall patient had severely reduced ejection fraction of 20 percent, multiple vessel disease global hypokinesis and underwent angioplasty. Post cardiac catheterization patient was admitted to the hospital, was started on aspirin and Plavix along with high intensity atorvastatin. Eventually GDMT was introduced, patient started on low-dose Coreg followed by half tablet of Entresto after 48 hours of last dose of SOILA inhibitor. Patient did not undergo dialysis postcardiac catheterization on Thursday had about 2.6 L fluid removed, nephrology following the case. 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 Matthews in [place]. Patient to continue dual antiplatelet therapy for 1 year, GDMT as tolerated and uptitrate outpatient. Patient is to hold his home dose of Eliquis and Lasix until he follows up with his school examiner. Patient to follow-up outpatient with primary care physician cardiology and nephrology. Patient is stable for discharge and responded well to hospital treatment, patient did undergo walk test prior to discharge desatted to 85 does have underlying COPD secondary to chronic smoking in the past, will be discharged on home oxygen. Discharge diagnoses: #ST elevation myocardial infarction #Status post cardiac catheterization, PCI x 1 to SVG #Heart failure with reduced ejection fraction, EF 20% #ESRD, dialysis Thursday #Type 2 diabetes mellitus #Hyperlipidemia #Hypertension #Obesity #Chronic smoker, more than 40 pack years #Depression Case discussed with Attending Dr. Mercado. Kel Ledbetter PGY1 Disclaimer: This note was dictated by speech recognition. Minor errors in blackjack supervisor may be present due to voice recognition software. Time Spent with Patient Time attestation: Total time spent providing and/or coordinating discharge services: Time spent: Greater than 30 minutes Exam Vital Signs Temp Pulse Resp BP Pulse Ox O2 Del Method O2 Flow Rate 97.3 F 89 19 133/65 H 97 Nasal Cannula 2 10/16/24 12:00 10/16/24 13:49 10/16/24 13:49 10/16/24 12:00 10/16/24 13:49 10/16/24 12:00 10/16/24 13:49 Narrative Exam Physical Exam General: Awake and in no acute distress. Conversational and non-toxic appearing. HEENT: Normocephalic, atraumatic, mucous membranes moist. On 2 L nasal cannula. Heart: Regular rate and rhythm, no murmurs. Lungs: Clear to auscultation with no wheezing or crackles. Abdomen: Soft, nondistended, nontender, positive bowel sounds. ?No guarding or rebound tenderness. Neurologic: Alert and oriented x3, no gross neurological deficit, and patient able to move all 4 extremities. Extremities: No edema. Skin: No rash or ecchymoses. Discharge Plan Plan Patient Disposition: HOME (Self Care) Patient condition on transfer: Stable Prescriptions/Referrals Prescriptions/Med Rec: New aspirin 81 mg Tablet,Delayed Release (Dr/Ec) 81 mg PO QDAY 30 Days Qty: 30 0RF Entresto 24-26 mg Tablet 0.5 tab PO BID 30 Days Qty: 30 0RF Continued clopidogrel 75 mg Tablet 75 mg PO QDAY Qty: 0 0RF Rx Instructions: Hold until Thursday the . Then continue as prescribed. hydrocodone-acetaminophen 7.5-325 mg Tablet 1 tab PO BID PRN (Reason: Pain) atorvastatin 80 mg Tablet 80 mg PO QPM citalopram 20 mg Tablet 20 mg PO HS allopurinol 300 mg Tablet 300 mg PO QDAY nitroglycerin [Nitrostat] 0.4 mg Tablet, Sublingual 0.4 mg buccal PRN PRN (Reason: Chest Pain) Skylar-Edgardo 0.8 mg Tablet 1 tab PO DAILY albuterol sulfate 90 mcg/actuation HFA aerosol inhaler 2 puff INHALATION .[id number] PRN (Reason: shortness of breath or wheezing) Patient Comments: INHALE 2 PUFFS BY MOUTH EVERY 4 TO 6 HOURS NEEDED FOR SHORTNESS OF BREATH metoclopramide HCl 5 mg tablet 5 mg PO BID PRN (Reason: nausea and vomiting) Patient Comments: TAKE 1 TABLET BY MOUTH TWICE A DAY pantoprazole 40 mg tablet,delayed release (DR/EC) 40 mg PO BID Patient Comments: TAKE 1 TABLET BY MOUTH TWICE A DAY glipizide 5 mg tablet 2.5 mg PO DAILY Patient Comments: TAKE 1/2 A TABLET BY MOUTH EVERY DAY gabapentin 300 mg capsule 300 mg PO HS Patient Comments: TAKE 1 CAPSULE BY MOUTH EVERYDAY AT BEDTIME carvedilol 3.125 mg Tablet 3.125 mg PO BID Rx Instructions: must administer with a meal/food calcium acetate(phosphat bind) 667 mg Capsule 667 mg PO TID ondansetron 8 mg tablet,disintegrating 8 mg PO Q12H PRN (Reason: nausea and vomiting) Qty: 30 0RF Held furosemide 20 mg Tablet 40 mg PO BID Hold Instructions: Resume on 10/24/24. Follow up with Cardiology before resuming Eliquis 2.5 mg tablet 2.5 mg PO BID Hold Instructions: Resume on 10/24/24. Do not resume until follow up with school examiner Patient Comments: TAKE 1 TABLET BY MOUTH TWICE A DAY Discontinued lisinopril 5 mg Tablet 5 mg PO QDAY Referrals: Angle Matthews MD [Referring Provider] - Martine Kaiser MD [Physician] - Patient/Caregiver Discharge Instructions Other Discharge Activity Instructions:: Continue Dual Anti-platelet Therapy: Aspirin and Plavix for one year, as you had a stent placed. Follow up with [employer] Dr Matthews this week. Take Coreg 3.125 mg twice a day and Entresto 0.5 tablet twice a day to improve your heart function. Optimize therapy with your school examiner. Hold Lasix and Eliquis, resume as determined by your school examiner. Stop Lisinopril. Close follow up with school examiner outpatient. DO NOT MISS YOUR DIALYSIS SESSION TOMORROW. Follow-up with PCP 1 to 2 weeks. Follow up with [facility] in 1 to 2 weeks. Return to ED if symptoms return or worsen. Other Discharge Diet Instructions: Cardiac, low sodium, low fat Education Materials: Heart Attack Dc, Heart Attack Questions, Heart Attack: Leaving the Hospital, Heart Attack: Back at Home Print Language: Mohawk Stand Alone Forms: Lyly Award Info., Patient Portal Info Letter Discharge Order Discharge Orders: Discharge (Routine); Ordered 10/16/24 Ordered By: Kel Ledbetter Quality Discharge Quality Measures VTE prophylaxis Attestestation MD Attestation I have discussed and was present for the essential components of the discharge history, physical examination, diagnosis, and discharge treatment plan with the resident. I agree with the patient's discharge care as documented by the resident and amended herein by me. Yossi Mercado DO. The patient understood all discharge instructions, all questions were answered satisfactorily. The patient was instructed to return to the Emergency Department is symptoms worsened or persisted. Patient was stable, afebrile, tolerating p.o. intake and ambulatory at time of discharge home. Although this document has been carefully reviewed, there may still be some phonetic and other typographical errors. These errors are purely grammatical due to imperfections in the software program and should not be construed in any way to compromise the substance of the patient's medical care during this visit.
[2024-10-16 20:14] LABS: Hepatitis A Antibody IgM Non Reactive (Non React); Hepatitis B Core Antibody IgM Non Reactive (Non React); Hepatitis B Surface Ab Reactive (Immune) (Immune); Hepatitis B Surface Antigen Non Reactive (Non React); Hepatitis C Antibody Non Reactive (Non React)
== END 2024-10-16 15:50 | disposition home or self-care (01) | DRG 321 ==
LOC: SERX 08:09 → SCCL 09:58 → S2NX 17:13
PROVIDERS: Internal Medicine; Emergency Provider Emergency Medicine
PROC: 02703D6 Dilation of Coronary Artery, One Artery, Bifurcation, with Intraluminal Device, Percutaneous Approach (ICD-10-PCS; principal; 2024-10-14 08:00)
DX: I21.3 ST elevation (STEMI) myocardial infarction of unspecified site (principal); N18.6 End stage renal disease; I13.2 Hypertensive heart and chronic kidney disease with heart failure and with stage 5 chronic kidney disease, or end stage renal disease; I50.22 Chronic systolic (congestive) heart failure; E11.22 Type 2 diabetes mellitus with diabetic chronic kidney disease; E78.5 Hyperlipidemia, unspecified; F17.210 Nicotine dependence, cigarettes, uncomplicated; Z99.2 Dependence on renal dialysis; E11.51 Type 2 diabetes mellitus with diabetic peripheral angiopathy without gangrene; E66.9 Obesity, unspecified; F32.A Depression, unspecified; I25.10 Atherosclerotic heart disease of native coronary artery without angina pectoris; J44.9 Chronic obstructive pulmonary disease, unspecified; I25.5 Ischemic cardiomyopathy; Z63.4 Disappearance and death of family member; Z79.01 Long term (current) use of anticoagulants; Z79.02 Long term (current) use of antithrombotics/antiplatelets; Z79.82 Long term (current) use of aspirin; Z79.84 Long term (current) use of oral hypoglycemic drugs; Z79.899 Other long term (current) drug therapy; Z91.158 Patient's noncompliance with renal dialysis for other reason; Z95.1 Presence of aortocoronary bypass graft; Z95.810 Presence of automatic (implantable) cardiac defibrillator; Z86.718 Personal history of other venous thrombosis and embolism; Z88.5 Allergy status to narcotic agent; Z88.8 Allergy status to other drugs, medicaments and biological substances
CPT/HCPCS: 36415; 71045; 75710; 80048; 80053; 80061; 80074; 83036; 83690; 83735; 83880; 84100; 84443; 84484; 85025; 85610; 85730; 86706; 87081; 94762; 99152; 99153; A4216; A4649; C1725; C1769; C1874; C1887; C1894; J0171; J0461; J0583; J1643; J1815; J1938; J2060; J2250; J2270; J2310; J2371; J2405; J2470; J2550; J3010; J3475; J3490; Q9967; A9270; J2305